=== PATIENT | male | born 1955 | race Caucasian/White ===

== ENCOUNTER 2019-12-29 09:48 | Outpatient (REF) | payer OTHER, SELFPAY ==
[2019-12-29 10:11] LABS: MANUAL DIFF FLAG NO
[2019-12-29 10:16] LABS: Basophils Percent Auto 0.3 % (0-2); Eosinophils Absolute Auto 0.3 X10*3/uL (0.0-0.4); Eosinophils Percent Auto 2.5 % (0-4); Hematocrit 45.3 % (42-52); Hemoglobin 15.5 g/dl (14.0-18.0); Imm Gran Abs Auto 0.03 X10*3/uL (0.00-0.03); Imm Gran Pct Auto 0.3 % (0.0-0.4); Lymphocytes Absolute Auto 2.6 X10*3/uL (1.2-4.9); Lymphocytes Percent Auto 23.1 % (20-40); Mean Corpuscular HGB Conc 34.2 g/dl (31.0-36.0); Mean Corpuscular Hemoglobin 31.6 pg (27.0-33.0); Mean Corpuscular Volume 92.3 fL (80-98); Mean Platelet Volume 10.9 fL (9.4-12.4); Monocytes Absolute Auto 0.6 X10*3/uL (0.1-1.2); Monocytes Percent Auto 5.1 % (2-11); Neutrophils Absolute Auto 7.9 X10*3/uL (2.0-8.3); Neutrophils Percent Auto 68.7 % (45-73); Platelet Count 216 X10*3/uL (160-400); Red Blood Count 4.91 X10*6/uL (4.60-5.80); Red Cell Distribution Width 12.6 % (11.0-16.0); White Blood Count 11.4 X10*3/uL (4.8-10.8)
[2019-12-29 10:18] LABS: Appearance Urine CLEAR; Color Urine YELLOW; Glucose Urine UA NEG (NEG); Leukocyte Esterase Urine NEG (NEG); Nitrite Urine NEG (NEG); Urine Blood NEG (NEG); Urine Ketones NEG (NEG); Urine Protein NEG (NEG-TRACE)
[2019-12-29 10:49] LABS: Alanine Aminotransferase 22 U/L (0-40); Albumin Level 4.2 g/dL (3.5-5.0); Alkaline Phosphatase 79 U/L (39-117); Anion Gap 12 (12-20); Aspartate Amino Transferase 15 U/L (5-37); Bilirubin Total 0.8 mg/dL (0.0-1.0); Blood Urea Nitrogen 11 mg/dL (9-16); C Reactive Protein 0.21 mg/dL (< or = 0.50); Calcium 8.9 mg/dL (8.4-10.2); Carbon Dioxide 29 mmol/L (22-29); Chloride 103 mmol/L (96-108); Estimated Glomerular Filt Rate > 60; Glucose Random 98 mg/dL (60-115); Potassium 4.3 mmol/l (3.3-5.1); Sodium 140 mmol/L (135-145)
[2019-12-29 11:09] LABS: Prostate Specific Antigen Scr 0.89 ng/mL (<0.05-4.0)
== END 2019-12-29 09:49 | disposition home or self-care (01) ==
LOC: HO.10HDL 09:48
PROVIDERS: Visit Provider Psychiatry & Neurology Neurology
DX: R30.0 Dysuria (principal); R35.1 Nocturia
CPT/HCPCS: 36415; 80053; 81003; 84153; 85025; 86140; 87086

== ENCOUNTER 2020-01-12 07:14 | Outpatient (REF) | payer OTHER, SELFPAY ==
[2020-01-12 11:19] LABS: Blood Urea Nitrogen 14 mg/dL (9-16); Estimated Glomerular Filt Rate > 60
== END 2020-01-12 07:15 | disposition home or self-care (01) ==
LOC: HO.WFDLDS 07:14
PROVIDERS: Visit Provider Urology
DX: N40.1 Benign prostatic hyperplasia with lower urinary tract symptoms (principal)
CPT/HCPCS: 82565; 84153; 84520

== ENCOUNTER 2020-01-30 06:50 | Outpatient (REF) | payer OTHER, SELFPAY ==
[2020-01-30 08:35] LABS: Prostate Specific Antigen 1.62 ng/mL (<0.05-4.0)
== END 2020-01-30 06:51 | disposition home or self-care (01) ==
LOC: HO.LAB 06:50
PROVIDERS: PCP Internal Medicine; Visit Provider Internal Medicine
DX: Q89.9 Congenital malformation, unspecified (principal); Z87.448 Personal history of other diseases of urinary system; Z12.5 Encounter for screening for malignant neoplasm of prostate
CPT/HCPCS: 84153

== ENCOUNTER 2020-07-22 06:17 | Outpatient (REF) | payer OTHER, SELFPAY ==
[2020-07-22 08:27] LABS: Cholesterol 213 mg/dL; HDL Cholesterol 50 mg/dL; LDL Cholesterol Calculated 119 mg/dl; Triglycerides 223 mg/dL
[2020-07-22 08:59] LABS: Prostate Specific Antigen 0.74 ng/mL (<0.05-4.0)
== END 2020-07-22 06:18 | disposition home or self-care (01) ==
LOC: HO.LAB 06:17
PROVIDERS: PCP Internal Medicine; Visit Provider Internal Medicine
DX: E78.00 Pure hypercholesterolemia, unspecified (principal); R97.20 Elevated prostate specific antigen [PSA]
CPT/HCPCS: 36415; 80061; 84153

== ENCOUNTER 2021-02-03 06:07 | Outpatient (REF) | payer OTHER, SELFPAY ==
[2021-02-03 06:24] LABS: MANUAL DIFF FLAG NO
[2021-02-03 06:55] LABS: Basophils Percent Auto 0.6 % (0-2); Eosinophils Absolute Auto 0.3 X10*3/uL (0.0-0.4); Eosinophils Percent Auto 3.5 % (0-4); Hematocrit 46.3 % (42.0-52.0); Hemoglobin 15.6 g/dl (14.0-18.0); Imm Gran Abs Auto 0.02 X10*3/uL (0.00-0.03); Imm Gran Pct Auto 0.3 % (0.0-0.4); Lymphocytes Absolute Auto 2.6 X10*3/uL (1.2-4.9); Lymphocytes Percent Auto 36.2 % (20-40); Mean Corpuscular HGB Conc 33.7 g/dl (31.0-36.0); Mean Corpuscular Hemoglobin 30.8 pg (27.0-33.0); Mean Corpuscular Volume 91.5 fL (80.0-98.0); Mean Platelet Volume 10.7 fL (9.4-12.4); Monocytes Absolute Auto 0.4 X10*3/uL (0.1-1.2); Monocytes Percent Auto 6.2 % (2-11); Neutrophils Absolute Auto 3.8 x10*3/uL (2.0-8.3); Neutrophils Percent Auto 53.2 % (45-73); Platelet Count 222 X10*3/uL (160-400); Red Blood Count 5.06 X10*6/uL (4.60-5.80); Red Cell Distribution Width 12.7 % (11.0-16.0); White Blood Count 7.2 X10*3/uL (4.8-10.8)
[2021-02-03 07:17] LABS: Anion Gap 12 (12-20); Blood Urea Nitrogen 13 mg/dL (9-16); C Reactive Protein 0.46 mg/dL (< or = 0.50); Calcium 9.7 mg/dL (8.4-10.2); Carbon Dioxide 29 mmol/L (22-29); Chloride 105 mmol/L (96-108); Estimated Glomerular Filt Rate > 60; Glucose Random 110 mg/dL (60-115); Potassium 4.6 mmol/L (3.3-5.1); Sodium 141 mmol/L (135-145)
[2021-02-03 07:42] LABS: Prostate Specific Antigen Scr 0.65 ng/mL (<0.05-4.0)
[2021-02-03 08:02] LABS: Appearance Urine CLEAR; Color Urine YELLOW; Glucose Urine UA NEG (NEG); Leukocyte Esterase Urine NEG (NEG); Nitrite Urine NEG (NEG); PH 5.5 (5.0-8.0); Specific Gravity - Urine >= 1.030 (1.005-1.025); Urine Blood NEG (NEG); Urine Ketones NEG (NEG); Urine Protein TRACE MG/DL (NEG-TRACE)
== END 2021-02-03 06:08 | disposition home or self-care (01) ==
LOC: HO.LAB 06:07
PROVIDERS: PCP Internal Medicine; Visit Provider Internal Medicine
DX: Z12.5 Encounter for screening for malignant neoplasm of prostate (principal); R97.20 Elevated prostate specific antigen [PSA]; N20.0 Calculus of kidney
CPT/HCPCS: 36415; 80048; 81003; 84153; 85025; 86140

== ENCOUNTER 2021-08-29 09:03 | Outpatient (REF) | payer OTHER, SELFPAY ==
[2021-08-29 11:03] LABS: MANUAL DIFF FLAG NO
[2021-08-29 11:05] LABS: Basophils Percent Auto 0.2 % (0-2); Eosinophils Absolute Auto 0.1 X10*3/uL (0.0-0.4); Eosinophils Percent Auto 1.1 % (0-4); Hematocrit 40.9 % (42.0-52.0); Hemoglobin 14.1 g/dl (14.0-18.0); Imm Gran Abs Auto 0.04 X10*3/uL (0.00-0.03); Imm Gran Pct Auto 0.3 % (0.0-0.4); Lymphocytes Absolute Auto 2.6 X10*3/uL (1.2-4.9); Mean Corpuscular HGB Conc 34.5 g/dl (31.0-36.0); Mean Corpuscular Hemoglobin 31.3 pg (27.0-33.0); Mean Corpuscular Volume 90.7 fL (80.0-98.0); Mean Platelet Volume 11.1 fL (9.4-12.4); Monocytes Absolute Auto 1.1 X10*3/uL (0.1-1.2); Monocytes Percent Auto 8.9 % (2-11); Neutrophils Absolute Auto 8.8 x10*3/uL (2.0-8.3); Neutrophils Percent Auto 69.5 % (45-73); Platelet Count 216 X10*3/uL (160-400); Red Blood Count 4.51 X10*6/uL (4.60-5.80); Red Cell Distribution Width 12.6 % (11.0-16.0); White Blood Count 12.7 X10*3/uL (4.8-10.8)
[2021-08-29 11:20] LABS: Appearance Urine CLEAR; Color Urine YELLOW; Glucose Urine UA NEG (NEG); Leukocyte Esterase Urine 1+ (NEG); Nitrite Urine NEG (NEG); Specific Gravity - Urine 1.015 (1.005-1.025); UACC Culture Trigger YES; Urine Blood 3+ (NEG); Urine Ketones 5 MG/DL (NEG); Urine Protein NEG (NEG-TRACE)
[2021-08-29 11:30] LABS: Anion Gap 11 (12-20); Blood Urea Nitrogen 17 mg/dL (9-16); Calcium 9.4 mg/dL (8.4-10.2); Carbon Dioxide 27 mmol/L (22-29); Chloride 105 mmol/L (96-108); Estimated Glomerular Filt Rate 43; Glucose Random 88 mg/dL (60-115); Potassium 4.1 mmol/L (3.3-5.1); Sodium 139 mmol/L (135-145)
[2021-08-29 12:07] LABS: UACC CULT YES
[2021-08-29 12:08] LABS: Calcium Oxalate Crystals Urine 1+ /LPF
== END 2021-08-29 09:04 | disposition home or self-care (01) ==
LOC: HO.WFDLDS 09:03
PROVIDERS: Visit Provider Internal Medicine
DX: M54.9 Dorsalgia, unspecified (principal); Z87.442 Personal history of urinary calculi
CPT/HCPCS: 36415; 80048; 81001; 85025; 87086

== ENCOUNTER 2021-09-04 14:59 | Inpatient (IN) | payer OTHER, SELFPAY ==
--- NOTE | ~2021-09-04 | CT_ITS ---
EXAMINATION: CT ABDOMEN AND PELVIS WITHOUT CONTRAST CLINICAL INFORMATION: Right flank pain COMPARISON: None TECHNIQUE: Multidetector volumetric imaging was performed from the superior aspect of the liver through the pubic symphysis. Sagittal and coronal reformatted images were obtained on the technologist's workstation. This CT examination was performed using dose optimization techniques as appropriate, variously including the following: *Automated exposure control *Adjustment of mA and/or kV according to patient size (this includes techniques or standardized protocols for targeted exams where dose is matched to indication/reason for exam; i.e. extremities or head) *Use of iterative reconstruction technique DLP: 491 mGy-cm FINDINGS: LUNG BASES: The visualized lung bases are unremarkable. LIVER, GALLBLADDER, AND BILIARY TREE: Scattered multiple hepatic cysts. No suspicious liver lesions. No intrahepatic bile duct dilatation. The gallbladder is unremarkable with no evidence of radiopaque gallstones, gallbladder wall thickening, or obvious pericholecystic inflammatory changes. PANCREAS: Unremarkable. SPLEEN: Unremarkable. ADRENAL GLANDS: Unremarkable. KIDNEYS AND URETERS: Right kidney: There is marked hydronephrosis right kidney with distention renal pelvis calyces and the right ureter to the distal lower pelvis. There is a stone in the lower right ureter just proximal to the ureterovesical junction measuring 8 x 4 mm in size. No additional stone in the ureter. There is a 3 mm stone and there are 2 adjacent 1 mm stones in the lower pole of the right kidney. Right kidney is of normal size and contour. Left kidney: Hypodensities within the left renal pelvis likely represent parapelvic cysts rather than hydronephrosis. No hydroureter. There is an exophytic cortical cyst at the anterior midpole left kidney measuring 1.6 cm. At the lower pole is an exophytic 1.3 cm cyst. No follow-up imaging is recommended for simple renal cyst.. There are 2 nonobstructive calculi in the lower pole left kidney measuring 4 mm and 3 mm. There is no ureteral stone. BLADDER: Unremarkable. GASTROINTESTINAL TRACT: There are scattered diverticula of the colon. There is no diverticulitis. There is no bowel wall thickening /edema. There is no bowel obstruction. There is a moderate volume of stool in the colon. The appendix is normal . The small bowel loops are unremarkable. The stomach is normal. There is no hiatal hernia. ABDOMINAL WALL: Small fat-containing umbilical hernia. Bilateral fat-containing inguinal hernia. These each measure about 3.5 cm transverse. There is knuckle of nonobstructive small bowel partially extending into the right inguinal hernia. LYMPH NODES: Normal. VASCULAR: Unremarkable. PELVIC VISCERA: Prostate measures 5.3 cm transverse. OSSEOUS STRUCTURES: Unremarkable. CT/CT abdomen pelvis wo con IMPRESSION: Hydronephrosis of right kidney due to an obstructing distal right ureteral stone measuring 8 x 4 mm. There are bilateral nonobstructive renal calculi. Fleischner guidelines were followed.
--- NOTE | ~2021-09-04 | FL_ITS ---
EXAMINATION: XR FLUOROSCOPY WITH IMAGES CLINICAL INFORMATION: Right ureteral stone COMPARISON: CT abdomen and pelvis from 09/04/2021 TECHNIQUE: Fluoroscopy performed by Dr. Swartz. Fluoroscopy time: 29.4 sec Dose: 5.95 mGy Images: 3 fluoroscopy images are saved. FL/FL guidance in OR FINDINGS AND IMPRESSION: Please refer to the urology procedure report. Retrograde right urography performed. Filling defect caused by a stone is detected in the distal ureter near level of ureterovesical junction. Persistent right hydroureter. A right ureteral stent was deployed.
[2021-09-04 15:19] VITALS: BP 114/77; PULSE 90; RESP 18; TEMP 36.9; O2SAT 98; BMI 22.8
[2021-09-04 15:33] LABS: Basophils Percent Auto 0.3 % (0-2); Eosinophils Absolute Auto 0.2 X10*3/uL (0.0-0.4); Eosinophils Percent Auto 1.6 % (0-4); Hematocrit 37.1 % (42.0-52.0); Hemoglobin 12.7 g/dl (14.0-18.0); Imm Gran Abs Auto 0.03 X10*3/uL (0.00-0.03); Imm Gran Pct Auto 0.3 % (0.0-0.4); Lymphocytes Absolute Auto 2.2 X10*3/uL (1.2-4.9); Lymphocytes Percent Auto 21.7 % (20-40); MANUAL DIFF FLAG NO; Mean Corpuscular HGB Conc 34.2 g/dl (31.0-36.0); Mean Corpuscular Hemoglobin 30.9 pg (27.0-33.0); Mean Corpuscular Volume 90.3 fL (80.0-98.0); Mean Platelet Volume 9.3 fL (9.4-12.4); Monocytes Absolute Auto 0.7 X10*3/uL (0.1-1.2); Neutrophils Absolute Auto 7.1 x10*3/uL (2.0-8.3); Neutrophils Percent Auto 69.1 % (45-73); Platelet Count 293 X10*3/uL (160-400); Red Blood Count 4.11 X10*6/uL (4.60-5.80); White Blood Count 10.3 X10*3/uL (4.8-10.8)
[2021-09-04 15:53] LABS: Anion Gap 13 (12-20); Blood Urea Nitrogen 15 mg/dL (9-16); Calcium 8.5 mg/dL (8.4-10.2); Carbon Dioxide 26 mmol/L (22-29); Chloride 105 mmol/L (96-108); Creatinine Clr Calc Pharmacy 57.5; Estimated Glomerular Filt Rate 49; Glucose Random 98 mg/dL (60-115); Potassium 4.6 mmol/L (3.3-5.1); Sodium 139 mmol/L (135-145)
--- NOTE | 2021-09-04 16:14 | ED_ITS ---
HPI - Male Genitourinary General Chief complaint: Urogenital-Male Stated complaint: sharp pain R side of back Time Seen by Provider: 09/04/21 16:08 Source: patient Mode of arrival: ambulatory Limitations: no limitations History of Present Illness HPI Narrative: 66-year-old male with a past medical history of BPH and GERD who is otherwise healthy presents for right-sided back pain that started 8 days ago and is wo rsening today. Patient has been nauseous and anorexic. No vomiting no fevers. The pain alternates between a sharp and a dull pain. Patient was found to have stones in his kidneys in 2019, but no stones in ureter. On August 27, patient had a sharp pain in his right side of his back, he saw his PCP on telehealth who gave him Flexeril and set up an ultrasound for his kidney that was not scheduled until September. PCP did prescribe Cipro flux is in, 250 mg b.i.d. for 7 days, patient is on day 7. On August 29 patient had +1 leukocyte esterase in urine with 15-29 white blood cells, 15-29 red blood cells and 3+ blood on August 29 patient had a leukocytosis of 12.7, creatinine 1.61 Patient states the pain in his right back is a 5/10 and is radiating to his abdomen. Patient states that he feels his urine flow is slower and he is emptying his bladder completely. He has not seen any blood in his urine. No dysuria. Related Data Allergies Allergy/AdvReac Type Severity Reaction Status Date / Time Penicillins Allergy Mild HIVES Unverified 11/16/19 14:41 Review of Systems Constitutional: Constitutional: Reports anorexia, Denies body ache(s), Denies chills, Reports fatigue, Denies fever(s), Denies headache(s), Denies malaise and Denies weakness Eyes: Eyes: Denies diplopia ENT: Denies vertigo, Denies dizziness, Denies otalgia, Denies headache(s), Denies mouth pain, Denies post nasal drip, Denies sinus pain, Denies sinus pressure, Denies sore throat and Denies throat swelling Cardiovascular: Cardiovascular: Denies chest pain, Denies syncope, Denies leg edema, Denies lightheadedness, Denies Loss of Consciousness, Denies palpitations and Denies dyspnea Respiratory: Respiratory: Denies chest congestion, Denies cough and Denies dys pnea Gastrointestinal: Gastrointestinal: Reports abdominal pain, Denies hematochezia, Denies constipation, Denies diarrhea, Reports nausea and Denies vomiting Genitourinary: Genitourinary: Reports difficulty urinating, Denies dysuria, Reports flank pain, Denies testicular pain and Denies urinary urgency Musculoskeletal: Musculoskeletal: Reports no additional musculoskeletal complaints Neurologic: Denies confusion, Denies vertigo, Denies dizziness, Denies syncope, Denies headache(s) and Denies weakness Psychiatric: Psychiatric: Denies anxiety, Denies confusion and Denies depression Endocrine: Endocrine: Reports fatigue and Denies palpitations Allergic/Immunologic: Allergic/Immunologic: Denies throat swelling PMFSH Social History Social History Advance Directives: No Advance Directives Information Provided: No Physical Exam Vital Signs: Vital Signs: Last Vital Signs Temp 97.6 F 09/04/21 17:54 Pulse 69 09/04/21 17:54 Resp 18 09/04/21 17:54 BP 133/75 09/04/21 17:54 Pulse Ox 100 09/04/21 17:54 O2 Del Method 09/04/21 17:54 BMI result Body Mass Index 22.8 Const: General: No confusion Nutritional Appearance: well nourished Orientation/consciousness: No confusion Limitations: no limitations Eyes: Conjunctivae: conjunctivae normal Pupils: Equal, round and reactive pupils present EOM: EOMs intact bilaterally Neck: Neck: Yes full ROM, Yes no lymphadenopathy and Yes supple Resp: Effort & Inspection: normal respiratory effort and able to speak in complete sentences Auscultation: clear to auscultation bilaterally, no crackles, no rales, no rhonchi and no wheezes Cardio: Rate: regular rate Rhythm: regular rhythm Heart sounds: S1 normal heart sound present and S2 normal heart sound present GI: Inspection: Yes normal to inspection Palpation (GI): Soft to palpation, nontender, no guarding and not rigid Percussion: Yes normal to percussion Auscultation: normal bowel sounds : General: No no CVA tenderness Back/Spine/Pelvis: Back: No no CVA tenderness Skin: General skin exam: no rashes or lesions noted Neuro: General: No confusion Cranial nerves: Yes Equal, round and reactive pupils present Extrem: General: Yes normal to inspection and Yes full ROM Psych: Appearance: grossly normal Affect: normal affect Attitude: cooperative Thought process: Normal thought process present Course Course Course Narrative: 52-year-old male with 8 days of right-sided back pain, has stable vitals, is afebrile, no CVA tenderness, benign abdominal exam. Today patient has no leukocytosis, creatinine is 1.44 compared to creatinine 1.616 days ago. Urine is clean. CT shows 8 mm obstructing stone in right ureter with marked hydronephrosis of right kidney Artesia Wells text with Dr. 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 LIVER, GALLBLADDER, AND BILIARY TREE: Scattered multiple hepatic cysts. No suspicious liver lesions. No intrahepatic bile duct dilatation. The gallbladder is unremarkable with no evidence of radiopaque gallstones, gallbladder wall thickening, or obvious pericholecystic inflammatory changes.? PANCREAS: Unremarkable.? SPLEEN: Unremarkable.? ADRENAL GLANDS: Unremarkable.? KIDNEYS AND URETERS: Right kidney: There is marked hydronephrosis right kidney with distention renal pelvis calyces and the right ureter to the distal lower pelvis. There is a stone in the lower right ureter just proximal to the ureterovesical junction measuring 8 x 4 mm in size. No additional stone in the ureter. There is a 3 mm stone and there are 2 adjacent 1 mm stones in the lower pole of the right kidney. Right kidney is of normal size and contour. Left kidney: Hypodensities within the left renal pelvis likely represent parapelvic cysts rather than hydronephrosis. No hydroureter. There is an exophytic cortical cyst at the anterior midpole left kidney measuring 1.6 cm. At the lower pole is an exophytic 1.3 cm cyst. No follow-up imaging is recommended for simple renal cyst.. There are 2 nonobstructive calculi in the lower pole left kidney measuring 4 mm and 3 mm. There is no ureteral stone. BLADDER: Unremarkable.? GASTROINTESTINAL TRACT: There are scattered diverticula of the colon. There is no diverticulitis. There is no bowel wall thickening /edema. There is no bowel obstruction. There is a moderate volume of stool in the colon. The appendix is normal . The small bowel loops are unremarkable. The stomach is normal. There is no hiatal hernia.? ABDOMINAL WALL: Small fat-containing umbilical hernia. Bilateral fat-containing inguinal hernia. These each measure about 3.5 cm transverse. There is knuckle of nonobstructive small bowel partially extending into the right inguinal hernia.? LYMPH NODES: Normal. VASCULAR: Unremarkable. PELVIC VISCERA: Prostate measures 5.3 cm transverse.? OSSEOUS STRUCTURES: Unremarkable.? CT/CT abdomen pelvis wo con IMPRESSION: Hydronephrosis of right kidney due to an obstructing distal right ureteral stone measuring 8 x 4 mm. There are bilateral nonobstructive renal calculi.? ? MDM - Male Genitourinary Lab Data Result diagrams: 09/04/21 15:27 09/04/21 15:27 Labs: Lab Results 09/04/21 09/04/21 09/04/21 Range/Units 15:27 15:27 16:33 WBC 10.3 (4.8-10.8) X10*3/uL RBC 4.11 L (4.60-5.80) X10*6/uL Hgb 12.7 L (14.0-18.0) g/dl Hct 37.1 L (42.0-52.0) % MCV 90.3 (80.0-98.0) fL MCH 30.9 (27.0-33.0) pg MCHC 34.2 (31.0-36.0) g/dl RDW 12.0 (11.0-16.0) % Plt Count 293 D (160-400) X10*3/uL MPV 9.3 L (9.4-12.4) fL Immature Gran % (Auto) 0.3 (0.0-0.4) % Neut % (Auto) 69.1 (45-73) % Lymph % (Auto) 21.7 (20-40) % Ashley % (Auto) 7.0 (2-11) % Eos % (Auto) 1.6 (0-4) % Baso % (Auto) 0.3 (0-2) % Lymph # (Auto) 2.2 (1.2-4.9) X10*3/uL Ashley # (Auto) 0.7 (0.1-1.2) X10*3/uL Eos # (Auto) 0.2 (0.0-0.4) X10*3/uL Baso # (Auto) 0.0 (0.0-0.2) X10*3/uL Abs Immat Gran (auto) 0.03 (0.00-0.03) X10*3/uL Absolute Neuts (auto) 7.1 (2.0-8.3) x10*3/uL Absolute Nucleated RBC 0.000 (0.0-0.012) X10*3/uL Nucleated RBC % (auto) 0.0 (0.0-0.2) /100WBC Sodium 139 (135-145) mmol/L Potassium 4.6 (3.3-5.1) mmol/L Chloride 105 (96-108) mmol/L Carbon Dioxide 26 (22-29) mmol/L Anion Gap 13 (12-20) BUN 15 (9-16) mg/dL Creatinine 1.44 H (0.5-1.4) mg/dL Estim Creat Clear Calc 57.5 Estimated GFR 49 Random Glucose 98 (60-115) mg/dL Calcium 8.5 D (8.4-10.2) mg/dL Urine Color YELLOW Urine Appearance CLEAR Urine pH 6.0 (5.0-8.0) Ur Specific [place] 1.025 (1.005-1.025) Urine Protein NEG (NEG-TRACE) MG/DL Urine Glucose (UA) NEG (NEG) MG/DL Urine Ketones NEG (NEG) MG/DL Urine Blood NEG (NEG) Urine Nitrite NEG (NEG) Ur Leukocyte Esterase NEG (NEG) Urine RBC 0-2 (0) /HPF Urine WBC 0-2 (0-4) /HPF Ur Squamous Epith Cells NONE /LPF Urine Bacteria NONE /LPF COVID-19 ([facility]) (Negative) COVID-19 Clin Com 09/04/21 Range/Units 17:57 WBC (4.8-10.8) X10*3/uL RBC (4.60-5.80) X10*6/uL Hgb (14.0-18.0) g/dl Hct (42.0-52.0) % MCV (80.0-98.0) fL MCH (27.0-33.0) pg MCHC (31.0-36.0) g/dl RDW (11.0-16.0) % Plt Count (160-400) X10*3/uL MPV (9.4-12.4) fL Immature Gran % (Auto) (0.0-0.4) % Neut % (Auto) (45-73) % Lymph % (Auto) (20-40) % Ashley % (Auto) (2-11) % Eos % (Auto) (0-4) % Baso % (Auto) (0-2) % Lymph # (Auto) (1.2-4.9) X10*3/uL Ashley # (Auto) (0.1-1.2) X10*3/uL Eos # (Auto) (0.0-0.4) X10*3/uL Baso # (Auto) (0.0-0.2) X10*3/uL Abs Immat Gran (auto) (0.00-0.03) X10*3/uL Absolute Neuts (auto) (2.0-8.3) x10*3/uL Absolute Nucleated RBC (0.0-0.012) X10*3/uL Nucleated RBC % (auto) (0.0-0.2) /100WBC Sodium (135-145) mmol/L Potassium (3.3-5.1) mmol/L Chloride (96-108) mmol/L Carbon Dioxide (22-29) mmol/L Anion Gap (12-20) BUN (9-16) mg/dL Creatinine (0.5-1.4) mg/dL Estim Creat Clear Calc Estimated GFR Random Glucose (60-115) mg/dL Calcium (8.4-10.2) mg/dL Urine Color Urine Appearance Urine pH (5.0-8.0) Ur Specific [place] (1.005-1.025) Urine Protein (NEG-TRACE) MG/DL Urine Glucose (UA) (NEG) MG/DL Urine Ketones (NEG) MG/DL Urine Blood (NEG) Urine Nitrite (NEG) Ur Leukocyte Esterase (NEG) Urine RBC (0) /HPF Urine WBC (0-4) /HPF Ur Squamous Epith Cells /LPF Urine Bacteria /LPF COVID-19 ([facility]) Negative (Negative) COVID-19 Clin Com See Note Discharge Plan Discharge Clinical Impression: Hydronephrosis with obstructing calculus Patient Disposition: Admitted As Inpatient
[2021-09-04 16:40] LABS: Appearance Urine CLEAR; Color Urine YELLOW; Glucose Urine UA NEG (NEG); Leukocyte Esterase Urine NEG (NEG); Nitrite Urine NEG (NEG); Specific Gravity - Urine 1.025 (1.005-1.025); Urine Blood NEG (NEG); Urine Ketones NEG (NEG); Urine Protein NEG (NEG-TRACE)
[2021-09-04 16:48] LABS: RBC Urine 0-2 /HPF (0); WBC Urine 0-2 /HPF (0-4)
[2021-09-04 17:54] VITALS: BP 133/75; PULSE 69; RESP 18; TEMP 36.4; O2SAT 100
[2021-09-04] MEDS: 0.9 % Sodium Chloride 1,000 ML 999 ML IV (18:22)
[2021-09-04] MEDS: Ketorolac Tromethamine 15 MG/ML VIAL IVPUSH (18:23)
[2021-09-04 18:28] LABS: COVID-19 Test Negative (Negative)
--- NOTE | 2021-09-04 19:12 | PM.IMHP ---
History of Present Illness Date of Service: 09/04/21 Chief Complaint: right flank pain 66-year-old male with a past medical history BPH presented the hospital today with a chief complaint of right sided back pain. Patient reports that he has been having right-sided back pain for the past 8 days; denies any urinary frequency urgency, fever chills cough, GI symptoms. Mentioned that he has seen his PCP who gave him ciprofloxacin for possible UTI; which he finished 5 day course. at the symptoms were not improving decided to come to the ER for further evaluation. Denies any chest pain palpitations. Denies any urinary frequency urgency or dysuria currently. Review of all other systems is negative except mentioned above ER course: Per ER team patient had abnormal labs consistent with TIARRA; urinalysis was clean. CT scan showed 8 mm right-sided distal ureteral stone with hydronephrosis. Urology was notified- suggested admission to the medicine service. [facility] Pertinent family history: father: CAD Social History Advance Directives: No Advance Directives Information Provided: No Meds Allergies Allergy/AdvReac Type Severity Reaction Status Date / Time Penicillins Allergy Mild HIVES Unverified 11/16/19 14:41 Active Medications: Current Medications Acetaminophen (Acetaminophen 325 Mg Tablet) 650 mg PO Q6H PRN PRN Reason: Pain, Mild (Pain Scale 1-3) Enoxaparin Sodium (Enoxaparin Sodium 40 Mg/0.4 Ml Syringe) 40 mg SUBCUT Q24H [facility] Hydromorphone HCl (Hydromorphone Hcl 1 Mg/Ml Syringe) 0.5 mg IVPUSH Q4H PRN; Protocol PRN Reason: Pain, Severe (Pain Scale 7-10) Melatonin (Melatonin 3 Mg Tablet) 6 mg PO BEDTIME PRN PRN Reason: Insomnia Pharmacy Consult (Consult Rx Perform Med Rec) 1 each MISCELLANE ONCE PRN PRN Reason: Consult order Senna (Sennosides 8.6 Mg Tablet) 17.2 mg PO BEDTIME PRN PRN Reason: Constipation Sodium Chloride (0.9 % Sodium Chloride Flush 3 Ml Syringe) 3 ml IVFLUSH QSHIFT [facility] Home Medications Medication Instructions Recorded Confirmed Last Taken Type cholecalciferol (vitamin D3) 25 25 mcg PO DAILY 09/04/21 09/04/21 Unknown History mcg (1,000 unit) tablet (Vitamin D3) omeprazole 20 mg tablet,delayed 20 mg PO DAILY@0630 09/04/21 09/04/21 09/04/21 History release vitamin B complex 1 tab PO DAILY 09/04/21 09/04/21 Unknown History Physical Exam Vital Signs and Narrative: Vital Signs: Last Vital Signs Temp 97.6 F 09/04/21 17:54 Pulse 69 09/04/21 17:54 Resp 18 09/04/21 17:54 BP 133/75 09/04/21 17:54 Pulse Ox 100 09/04/21 17:54 O2 Del Method 09/04/21 17:54 BMI result Body Mass Index 22.8 Results Labs CBC and Chem 7: 09/04/21 15:27 09/04/21 15:27 Labs: Laboratory Results - last 24 hr 09/04/21 09/04/21 09/04/21 15:27 15:27 16:33 MCV 90.3 MCH 30.9 MCHC 34.2 RDW 12.0 Plt Count 293 D MPV 9.3 L Immature Gran % (Auto) 0.3 Neut % (Auto) 69.1 Lymph % (Auto) 21.7 [place] % (Auto) 7.0 Eos % (Auto) 1.6 Baso % (Auto) 0.3 Lymph # (Auto) 2.2 [place] # (Auto) 0.7 Eos # (Auto) 0.2 Baso # (Auto) 0.0 Abs Immat Gran (auto) 0.03 Absolute Neuts (auto) 7.1 Absolute Nucleated RBC 0.000 Nucleated RBC % (auto) 0.0 Anion Gap 13 Estim Creat Clear Calc 57.5 Estimated GFR 49 Random Glucose 98 Calcium 8.5 D Urine Color YELLOW Urine Appearance CLEAR Urine pH 6.0 Ur Specific [place] 1.025 Urine Protein NEG Urine Glucose (UA) NEG Urine Ketones NEG Urine Blood NEG Urine Nitrite NEG Ur Leukocyte Esterase NEG Urine RBC 0-2 Urine WBC 0-2 Ur Squamous Epith Cells NONE Urine Bacteria NONE COVID-19 ([facility]) COVID-19 Clin Com 09/04/21 17:57 MCV MCH MCHC RDW Plt Count MPV Immature Gran % (Auto) Neut % (Auto) Lymph % (Auto) [place] % (Auto) Eos % (Auto) Baso % (Auto) Lymph # (Auto) [place] # (Auto) Eos # (Auto) Baso # (Auto) Abs Immat Gran (auto) Absolute Neuts (auto) Absolute Nucleated RBC Nucleated RBC % (auto) Anion Gap Estim Creat Clear Calc Estimated GFR Random Glucose Calcium Urine Color Urine Appearance Urine pH Ur Specific [place] Urine Protein Urine Glucose (UA) Urine Ketones Urine Blood Urine Nitrite Ur Leukocyte Esterase Urine RBC Urine WBC Ur Squamous Epith Cells Urine Bacteria COVID-19 ([facility]) Negative COVID-19 Clin Com See Note Imaging Radiologist's Impressions: Impressions Abdomen/Pelvis CT 09/04/21 16:44 IMPRESSION: Hydronephrosis of right kidney due to an obstructing distal right ureteral stone measuring 8 x 4 mm. There are bilateral nonobstructive renal calculi. Fleischner guidelines were followed. Assessment and Plan (1) Hydronephrosis with obstructing calculus: Status: Acute Plan 66-year-old male with a past medical history BPH presented the hospital today with a chief complaint of right sided back pain. Noted to have right-sided ureteral calculus with hydronephrosis. Admitted for further management. Right-sided ureteral calculus/ hydronephrosis: Pain control Patient recently finished course of antibiotics. Urinalysis currently appears clean urology aware of the patient Pain control Flomax TIARRA: Question postrenal given hydronephrosis. Urology follow-up. DVT prophylaxis: Lovenox Code status: Full code Quality Stroke Does the patient have a stroke diagnosis?: No VTE Prior VTE?: No VTE Risk Level:: Medical - moderate - high VTE Device Contraindication: Treatment Not Indicated VTE Drug Contraindication: N/A - Med Ordered
[2021-09-04] MEDS: Enoxaparin Sodium 40 MG/0.4 ML SYRINGE SUBCUT (19:45)
[2021-09-04] MEDS: cefTRIAXone sodium 1 GM in 0.9 % Sodium Chloride 50 ML IV (20:10)
--- NOTE | 2021-09-04 20:20 | PHA.MEDREC ---
Pharmacy Consult ? Medication Reconciliation Pharmacy has completed the medication reconciliation.
[2021-09-05] VITALS (10 sets, daily range): BP systolic 102–151; BP diastolic 48–77; PULSE 72–89; RESP 14–18; TEMP 36.2–36.9; O2SAT 96–100
[2021-09-05] MEDS: Omeprazole 20 MG CAPSULE.DR PO (05:48)
[2021-09-05] MEDS: HYDROmorphone HCl 0.5 MG/0.5 ML SYRINGE IVPUSH ×2 (05:48→13:56)
[2021-09-05 06:24] LABS: MANUAL DIFF FLAG NO
[2021-09-05 06:35] LABS: Basophils Percent Auto 0.5 % (0-2); Eosinophils Absolute Auto 0.2 X10*3/uL (0.0-0.4); Hematocrit 37.1 % (42.0-52.0); Hemoglobin 12.6 g/dl (14.0-18.0); Imm Gran Abs Auto 0.05 X10*3/uL (0.00-0.03); Imm Gran Pct Auto 0.6 % (0.0-0.4); Lymphocytes Absolute Auto 1.9 X10*3/uL (1.2-4.9); Lymphocytes Percent Auto 24.3 % (20-40); Mean Corpuscular Hemoglobin 30.7 pg (27.0-33.0); Mean Corpuscular Volume 90.3 fL (80.0-98.0); Mean Platelet Volume 9.8 fL (9.4-12.4); Monocytes Absolute Auto 0.5 X10*3/uL (0.1-1.2); Neutrophils Absolute Auto 5.3 x10*3/uL (2.0-8.3); Neutrophils Percent Auto 66.6 % (45-73); Platelet Count 301 X10*3/uL (160-400); Red Blood Count 4.11 X10*6/uL (4.60-5.80); Red Cell Distribution Width 11.9 % (11.0-16.0)
[2021-09-05 06:45] LABS: Anion Gap 12 (12-20); Blood Urea Nitrogen 16 mg/dL (9-16); Calcium 8.3 mg/dL (8.4-10.2); Carbon Dioxide 24 mmol/L (22-29); Chloride 106 mmol/L (96-108); Creatinine Clr Calc Pharmacy 67.3; Estimated Glomerular Filt Rate 59; Glucose Random 83 mg/dL (60-115); Potassium 4.6 mmol/L (3.3-5.1); Sodium 137 mmol/L (135-145)
--- NOTE | 2021-09-05 09:51 | PC.NURSE ---
Levofloxacin/D5W not loaded in overflow pyxis. This mortgage underwriter spoke with Matilda in pharmacy. Meds will be brought to the unit. Will administer meds when received from pharmacy.
[2021-09-05] MEDS: levoFLOXacin/D5W 500 MG/100 ML PIGGYBACK 100 MG IV (09:56)
--- NOTE | 2021-09-05 09:57 | MHC.CM.PN ---
met with pt in overflow and his pt is indepndent had no services prior to admission it is not expected that he will need servcies when dcd ..pt hopes to be dcd today
[2021-09-05] MEDS: 0.9 % Sodium Chloride Flush 3 ML SYRINGE IVFLUSH (09:59)
--- NOTE | 2021-09-05 11:17 | P.PNIM_ITS ---
Subjective Subjective Date of Service: 09/05/21 Interval History: follow-up on kidney stone interval history: Pain is better,renal function is normal Review of Systems no abdominal talib Physical Exam Vital Signs: Vital Signs: Last Vital Signs Temp 98.3 F 09/05/21 01:33 Pulse 72 09/05/21 08:46 Resp 16 09/05/21 08:46 BP 123/70 09/05/21 08:46 Pulse Ox 96 09/05/21 08:46 O2 Del Method 09/05/21 08:46 BMI result Body Mass Index 22.8 Objective Data Active Medications Acetaminophen (Acetaminophen 325 Mg Tablet) 650 mg PO Q6H PRN PRN Reason: Pain, Mild (Pain Scale 1-3) Enoxaparin Sodium (Enoxaparin Sodium 40 Mg/0.4 Ml Syringe) 40 mg SUBCUT Q24H [facility] Last Admin: 09/04/21 19:45 Dose: 40 mg Documented By: TALI Hydromorphone HCl (Hydromorphone Hcl 0.5 Mg/0.5 Ml Syringe) 0.5 mg IVPUSH Q4H PRN; Protocol PRN Reason: Pain, Severe (Pain Scale 7-10) Last Admin: 09/05/21 05:48 Dose: 0.5 mg Documented By: ZAY Ceftriaxone Sodium 1 gm/ (Sodium Chloride) 50 mls @ 100 mls/hr IV Q24H [facility] Last Admin: 09/04/21 20:10 Dose: 100 mls/hr Documented By: TALI Melatonin (Melatonin 3 Mg Tablet) 6 mg PO BEDTIME PRN PRN Reason: Insomnia Omeprazole (Omeprazole 20 Mg Capsule.) 20 mg PO DAILY@0630 [facility] Last Admin: 09/05/21 05:48 Dose: 20 mg Documented By: ZAY Pharmacy Consult (Consult Rx Perform Med Rec) 1 each MISCELLANE ONCE PRN PRN Reason: Consult order Senna (Sennosides 8.6 Mg Tablet) 17.2 mg PO BEDTIME PRN PRN Reason: Constipation Sodium Chloride (0.9 % Sodium Chloride Flush 3 Ml Syringe) 3 ml IVFLUSH QSHIFT [facility] Last Admin: 09/05/21 09:59 Dose: 3 ml Documented By: EDWNI Tamsulosin HCl (Tamsulosin Hcl 0.4 Mg Capsule) 0.4 mg PO DAILY [place] Last Admin: 09/05/21 10:10 Dose: Not Given Documented By: EDWIN Non-Admin Reason: NPO Labs CBC & Chem 7: 09/05/21 05:56 09/05/21 05:56 Labs: Laboratory Results - last 24 hr 09/04/21 09/04/21 09/04/21 15:27 15:27 16:33 MCV 90.3 MCH 30.9 MCHC 34.2 RDW 12.0 Plt Count 293 D MPV 9.3 L Immature Gran % (Auto) 0.3 Neut % (Auto) 69.1 Lymph % (Auto) 21.7 [place] % (Auto) 7.0 Eos % (Auto) 1.6 Baso % (Auto) 0.3 Lymph # (Auto) 2.2 [place] # (Auto) 0.7 Eos # (Auto) 0.2 Baso # (Auto) 0.0 Abs Immat Gran (auto) 0.03 Absolute Neuts (auto) 7.1 Absolute Nucleated RBC 0.000 Nucleated RBC % (auto) 0.0 Anion Gap 13 Estim Creat Clear Calc 57.5 Estimated GFR 49 Random Glucose 98 Calcium 8.5 D Urine Color YELLOW Urine Appearance CLEAR Urine pH 6.0 Ur Specific [place] 1.025 Urine Protein NEG Urine Glucose (UA) NEG Urine Ketones NEG Urine Blood NEG Urine Nitrite NEG Ur Leukocyte Esterase NEG Urine RBC 0-2 Urine WBC 0-2 Ur Squamous Epith Cells NONE Urine Bacteria NONE COVID-19 ([facility]) COVID-19 Clin Com 09/04/21 09/05/21 09/05/21 17:57 05:56 05:56 MCV 90.3 MCH 30.7 MCHC 34.0 RDW 11.9 Plt Count 301 MPV 9.8 Immature Gran % (Auto) 0.6 H Neut % (Auto) 66.6 Lymph % (Auto) 24.3 [place] % (Auto) 6.0 Eos % (Auto) 2.0 Baso % (Auto) 0.5 Lymph # (Auto) 1.9 [place] # (Auto) 0.5 Eos # (Auto) 0.2 Baso # (Auto) 0.0 Abs Immat Gran (auto) 0.05 H Absolute Neuts (auto) 5.3 Absolute Nucleated RBC 0.000 Nucleated RBC % (auto) 0.0 Anion Gap 12 Estim Creat Clear Calc 67.3 Estimated GFR 59 Random Glucose 83 Calcium 8.3 L Urine Color Urine Appearance Urine pH Ur Specific [place] Urine Protein Urine Glucose (UA) Urine Ketones Urine Blood Urine Nitrite Ur Leukocyte Esterase Urine RBC Urine WBC Ur Squamous Epith Cells Urine Bacteria COVID-19 ([facility]) Negative COVID-19 Clin Com See Note Assessment and Plan (1) Hydronephrosis with obstructing calculus: Status: Acute Plan 66-year-old male with a past medical history BPH presented the hospital today with a chief complaint of right sided back pain. Noted to have right-sided ureteral calculus with hydronephrosis. Admitted for further management. Right-sided ureteral calculus/ hydronephrosis: Pain control Patient recently finished course of antibiotics. Urinalysis currently appears clean uro to assess for intervention Pain control Flomax TIARRA: Question postrenal given hydronephrosis. resolved DVT prophylaxis: Lovenox Code status: Full code Inpatient need, kidney stone with hydronephrosis in TIARRA and likely need urological intervention. Quality Stroke Does the patient have a stroke diagnosis?: No VTE Prior VTE?: No VTE Risk Level:: Medical - moderate - high VTE Device Contraindication: Treatment Not Indicated VTE Drug Contraindication: N/A - Med Ordered
--- NOTE | 2021-09-05 14:45 | PC.NURSE ---
REPORT GIVEN TO RN IN SHORT STAY. 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 PT AND HIS AWARE OF PLAN.
--- NOTE | 2021-09-05 15:51 | PC.NURSE ---
REPORT GIVEN TO KIMMY SAAB. PT WILL BE TRANSFERRED TO [facility] AFTER PROCEDURE. PT AWARE OF PLAN, HIS IS AT HIS BEDSIDE. VSS.
--- NOTE | 2021-09-05 15:59 | P.CONAN_ITS ---
[facility] Active Problems Active Problems: All Active Problems (Updated 09/04/21 @ 17:53 by MARISEL Jackson) Hydronephrosis with obstructing calculus (Acute) Family History Family history of problems with anesthesia: No Surgical History History of Problems with Anesthesia: No Social History Social History Use of substances other than those prescribed or required for medical reasons: No Advance Directives: No Advance Directives Information Provided: No service: No Meds Allergies Allergy/AdvReac Type Severity Reaction Status Date / Time Penicillins Allergy Mild HIVES Unverified 11/16/19 14:41 Active Medications: Current Medications Acetaminophen (Acetaminophen 325 Mg Tablet) 650 mg PO Q6H PRN PRN Reason: Pain, Mild (Pain Scale 1-3) Enoxaparin Sodium (Enoxaparin Sodium 40 Mg/0.4 Ml Syringe) 40 mg SUBCUT Q24H [facility] Last Admin: 09/04/21 19:45 Dose: 40 mg Hydromorphone HCl (Hydromorphone Hcl 0.5 Mg/0.5 Ml Syringe) 0.5 mg IVPUSH Q4H PRN; Protocol PRN Reason: Pain, Severe (Pain Scale 7-10) Last Admin: 09/05/21 13:56 Dose: 0.5 mg Ceftriaxone Sodium 1 gm/ (Sodium Chloride) 50 mls @ 100 mls/hr IV Q24H [facility] Last Admin: 09/04/21 20:10 Dose: 100 mls/hr Melatonin (Melatonin 3 Mg Tablet) 6 mg PO BEDTIME PRN PRN Reason: Insomnia Omeprazole (Omeprazole 20 Mg Capsule.Dr) 20 mg PO DAILY@0630 [facility] Last Admin: 09/05/21 05:48 Dose: 20 mg Pharmacy Consult (Consult Rx Perform Med Rec) 1 each MISCELLANE ONCE PRN PRN Reason: Consult order Senna (Sennosides 8.6 Mg Tablet) 17.2 mg PO BEDTIME PRN PRN Reason: Constipation Sodium Chloride (0.9 % Sodium Chloride Flush 3 Ml Syringe) 3 ml IVFLUSH QSHIFT [facility] Last Admin: 09/05/21 09:59 Dose: 3 ml Tamsulosin HCl (Tamsulosin Hcl 0.4 Mg Capsule) 0.4 mg PO DAILY [facility] Last Admin: 09/05/21 10:10 Dose: Not Given Home Medications Medication Instructions Recorded Confirmed Last Taken Type cholecalciferol (vitamin D3) 25 25 mcg PO DAILY 09/04/21 09/04/21 Unknown History mcg (1,000 unit) tablet (Vitamin D3) omeprazole 20 mg tablet,delayed 20 mg PO DAILY@0630 09/04/21 09/04/21 09/04/21 History release vitamin B complex 1 tab PO DAILY 09/04/21 09/04/21 Unknown History Exam Exam Date and Time: September 05, 2021 1559 Height,Weight and Vital Signs: Height 6 ft 1 in Weight 78.471 kg Last Vital Signs Temp 98.3 F 09/05/21 01:33 Pulse 72 09/05/21 08:46 Resp 16 09/05/21 08:46 BP 123/70 09/05/21 08:46 Pulse Ox 96 09/05/21 08:46 O2 Del Method 09/05/21 08:46 Pertinent Lab Results Pertinent Lab Results: Laboratory Tests 09/04/21 09/04/21 09/04/21 15:27 15:27 16:33 WBC 10.3 RBC 4.11 L Hgb 12.7 L Hct 37.1 L MCV 90.3 MCH 30.9 MCHC 34.2 RDW 12.0 Plt Count 293 D MPV 9.3 L Immature Gran % (Auto) 0.3 Neut % (Auto) 69.1 Lymph % (Auto) 21.7 [place] % (Auto) 7.0 Eos % (Auto) 1.6 Baso % (Auto) 0.3 Lymph # (Auto) 2.2 [place] # (Auto) 0.7 Eos # (Auto) 0.2 Baso # (Auto) 0.0 Abs Immat Gran (auto) 0.03 Absolute Neuts (auto) 7.1 Absolute Nucleated RBC 0.000 Nucleated RBC % (auto) 0.0 Sodium 139 Potassium 4.6 Chloride 105 Carbon Dioxide 26 Anion Gap 13 BUN 15 Creatinine 1.44 H Estim Creat Clear Calc 57.5 Estimated GFR 49 Random Glucose 98 Calcium 8.5 D Urine Color YELLOW Urine Appearance CLEAR Urine pH 6.0 Ur Specific [place] 1.025 Urine Protein NEG Urine Glucose (UA) NEG Urine Ketones NEG Urine Blood NEG Urine Nitrite NEG Ur Leukocyte Esterase NEG Urine RBC 0-2 Urine WBC 0-2 Ur Squamous Epith Cells NONE Urine Bacteria NONE COVID-19 ([facility]) COVID-19 Clin Com 0709/05/21 09/05/21 17:57 05:56 05:56 WBC 8.0 RBC 4.11 L Hgb 12.6 L Hct 37.1 L MCV 90.3 MCH 30.7 MCHC 34.0 RDW 11.9 Plt Count 301 MPV 9.8 Immature Gran % (Auto) 0.6 H Neut % (Auto) 66.6 Lymph % (Auto) 24.3 [place] % (Auto) 6.0 Eos % (Auto) 2.0 Baso % (Auto) 0.5 Lymph # (Auto) 1.9 [place] # (Auto) 0.5 Eos # (Auto) 0.2 Baso # (Auto) 0.0 Abs Immat Gran (auto) 0.05 H Absolute Neuts (auto) 5.3 Absolute Nucleated RBC 0.000 Nucleated RBC % (auto) 0.0 Sodium 137 Potassium 4.6 Chloride 106 Carbon Dioxide 24 Anion Gap 12 BUN 16 Creatinine 1.23 Estim Creat Clear Calc 67.3 Estimated GFR 59 Random Glucose 83 Calcium 8.3 L Urine Color Urine Appearance Urine pH Ur Specific [place] Urine Protein Urine Glucose (UA) Urine Ketones Urine Blood Urine Nitrite Ur Leukocyte Esterase Urine RBC Urine WBC Ur Squamous Epith Cells Urine Bacteria COVID-19 ([facility]) Negative COVID-19 Clin Com See Note Airway Mallampati Class: II TM Dist: >3cm Neck ROM: Full Assessment and Plan Assessment Anesthesia Assessment: Anesthesia Plan Discussed and Chart Reviewed Final Anesthetic Review Family History of Problems with Anesthesia: No History of Problems with Anesthesia: No NPO: Yes ASA Class: II and Emergency Final Preanesthetic Review: No Changes in Pt Med Stat, Meds/Allgs Chart Reviewed, Consent Obtained/Reviewed and Anes Risks/Benef Reviewed Patient Risk: Intermediate Procedure Risk: Intermediate Anesthetic Plan Anesthetic Plan: GA Disposition: Standard PACU
--- NOTE | 2021-09-05 16:30 | PC.NURSE ---
PT PICKED UP AND TAKEN TO SURGERY.
--- NOTE | 2021-09-05 16:40 | PM.UROCN ---
History of Present Illness Consult details Consult date: 09/05/21 Narrative: Consulting complaint distal right ureteric stone with pain Allan is a very pleasant male. presents with 2-3 day history of progressive right flank pain Initial creatinine 1.6, WBC 12.7 creatinine is down to 1.2 with hydration and WBC is down to 8 Imaging - 09/19 Right kidney: There is marked hydronephrosis right kidney with distention renal pelvis calyces and the right ureter to the distal lower pelvis. There is a stone in the lower right ureter just proximal to the ureterovesical junction measuring 8 x 4 mm in size. No additional stone in the ureter. There is a 3 mm stone and there are 2 adjacent 1 mm stones in the lower pole of the right kidney. Right kidney is of normal size and contour recommendation cystoscopy, ureteroscopy, laser lithotripsy and stent placement Review of Systems Constitutional: Constitutional: Denies chills and Denies fever(s) Cardiovascular: Cardiovascular: Reports no additional cardiovascular complaints and Denies syncope Respiratory: Respiratory: Denies cough Gastrointestinal: Gastrointestinal: Denies abdominal pain and Denies heartburn Genitourinary: Genitourinary: Reports as per HPI and Denies change in libido Neurologic: Denies syncope Psychiatric: Psychiatric: Denies change in libido Endocrine: Endocrine: Denies change in libido [facility] Social History Social History Patient Tobacco Use Status: Never used Tobacco Use of substances other than those prescribed or required for medical reasons: No Are you DNR?: No Advance Directives: No Advance Directives Information Provided: No service: No Meds Allergies Allergy/AdvReac Type Severity Reaction Status Date / Time Penicillins Allergy Mild HIVES Unverified 11/16/19 14:41 Active Medications: Current Medications Acetaminophen (Acetaminophen 325 Mg Tablet) 650 mg PO Q6H PRN PRN Reason: Pain, Mild (Pain Scale 1-3) Enoxaparin Sodium (Enoxaparin Sodium 40 Mg/0.4 Ml Syringe) 40 mg SUBCUT Q24H [place] Last Admin: 09/04/21 19:45 Dose: 40 mg Fentanyl (Fentanyl Citrate/Pf 100 Mcg/2 Ml Vial) 50 mcg IVPUSH Q5M PRN; Protocol PRN Reason: Pain, Severe (Pain Scale 7-10) Hydromorphone HCl (Hydromorphone Hcl 0.5 Mg/0.5 Ml Syringe) 0.5 mg IVPUSH Q4H PRN; Protocol PRN Reason: Pain, Severe (Pain Scale 7-10) Last Admin: 09/05/21 13:56 Dose: 0.5 mg Ceftriaxone Sodium 1 gm/ (Sodium Chloride) 50 mls @ 100 mls/hr IV Q24H [facility] Last Admin: 09/04/21 20:10 Dose: 100 mls/hr Melatonin (Melatonin 3 Mg Tablet) 6 mg PO BEDTIME PRN PRN Reason: Insomnia Omeprazole (Omeprazole 20 Mg Capsule.Dr) 20 mg PO DAILY@629 [facility] Last Admin: 09/05/21 05:48 Dose: 20 mg Ondansetron HCl (Ondansetron Hcl 4 Mg/2 Ml Vial) 4 mg IVPUSH ONCE PRN PRN Reason: Nausea and Vomiting Oxycodone HCl (Oxycodone Hcl Immed Release 5 Mg Tablet) 10 mg PO ONCE PRN PRN Reason: Pain, Severe (Pain Scale 7-10) Pharmacy Consult (Consult Rx Perform Med Rec) 1 each MISCELLANE ONCE PRN PRN Reason: Consult order Senna (Sennosides 8.6 Mg Tablet) 17.2 mg PO BEDTIME PRN PRN Reason: Constipation Sodium Chloride (0.9 % Sodium Chloride Flush 3 Ml Syringe) 3 ml IVFLUSH QSHIFT [facility] Last Admin: 09/05/21 09:59 Dose: 3 ml Tamsulosin HCl (Tamsulosin Hcl 0.4 Mg Capsule) 0.4 mg PO DAILY [facility] Last Admin: 09/05/21 10:10 Dose: Not Given Home Medications Medication Instructions Recorded Confirmed Last Taken Type cholecalciferol (vitamin D3) 25 25 mcg PO DAILY 09/04/21 09/04/21 Unknown History mcg (1,000 unit) tablet (Vitamin D3) omeprazole 20 mg tablet,delayed 20 mg PO DAILY@0630 09/04/21 09/04/21 09/04/21 History release vitamin B complex 1 tab PO DAILY 09/04/21 09/04/21 Unknown History Physical Exam Vital Signs: Vital Signs: Last Vital Signs Temp 98.0 F 09/05/21 16:29 Pulse 83 09/05/21 16:29 Resp 18 09/05/21 16:29 BP 139/77 09/05/21 16:29 Pulse Ox 100 07/08/22 16:29 O2 Del Method 09/05/21 16:29 BMI result Body Mass Index 22.8 Const: General: cooperative, healthy appearing, comfortable and no acute distress Orientation/consciousness: patient oriented x3 HEENT: Face and sinus: Yes normal facial exam Mouth: moist mucous membranes Neck: Neck: Yes normal visual inspection, Yes full ROM and Yes trachea midline Chest: Chest palpation & inspection: normal inspection of the chest Resp: Effort & Inspection: normal respiratory effort, able to speak in complete sentences and no respiratory distress GI: Inspection: Yes normal to inspection Back/Spine/Pelvis: Cervical Spine: normal cervical lordosis Thoracic/Lumbar Spine: thoracic and lumbar spine normal to inspection Skin: General skin exam: no rashes or lesions noted Neuro: General: patient oriented x3, gait normal, tone normal and moves all extremities Extrem: General: Yes normal to inspection and Yes capillary refill normal Results Labs Result diagrams: 09/05/21 05:56 09/05/21 05:56 Labs: Abnormal lab results 09/05/21 09/05/21 Range/Units 05:56 05:56 RBC 4.11 L (4.60-5.80) X10*6/uL Hgb 12.6 L (14.0-18.0) g/dl Hct 37.1 L (42.0-52.0) % Immature Gran % (Auto) 0.6 H (0.0-0.4) % Abs Immat Gran (auto) 0.05 H (0.00-0.03) X10*3/uL Calcium 8.3 L (8.4-10.2) mg/dL Short CBC 09/05/21 Range/Units 05:56 WBC 8.0 (4.8-10.8) X10*3/uL Hgb 12.6 L (14.0-18.0) g/dl Hct 37.1 L (42.0-52.0) % Plt Count 301 (160-400) X10*3/uL BMP 09/05/21 05:56 Sodium 137 Potassium 4.6 Chloride 106 Carbon Dioxide 24 BUN 16 Creatinine 1.23 Calcium 8.3 L Urine 09/04/21 Range/Units 16:33 Urine Color YELLOW Urine Appearance CLEAR Urine pH 6.0 (5.0-8.0) Ur Specific [place] 1.025 (1.005-1.025) Urine Protein NEG (NEG-TRACE) MG/DL Urine Glucose (UA) NEG (NEG) MG/DL All other labs normal. Assessment and Plan (1) Hydronephrosis with obstructing calculus: Status: Acute Plan Ureteroscopy We discussed the nature of the decision and reasonable alternatives for performing the above surgery. Interventions include chemical dissolution, ESWL, ureteroscopy with laser lithotripsy and stent placement, PCNL. Options such as medical therapy were discussed. The relative uncertainties and benefits related to each alternate procedure were adequately discussed. General surgical risks including, but not limited to, pain, bleeding, infection, myocardial infarction, pulmonary embolus, deep vein thrombosis and cerebrovascular accident which may result in further hospitalization were discussed. Full disclosure of the procedure as well as all major risks, benefits and complications were discussed including but not limited to damage to the urethra, bladder and kidney infection, damage to the ureter, stent migration or malposition, scarring to the renal pelvis, remnant stone fragments, subsequent stone passage with need for secondary procedures. The overall secondary procedure rate is approximately 10-15%. The success rate of the procedure was discussed. Success of the procedure in the short-term does not necessarily guarantee that long-term success will be maintained. Suitable follow up will need to be maintained. The patient showed understanding of discussion and wishes to proceed with - cystoscopy, retrograde, ureteroscopy, possible lithotripsy/stone basketing and stent on the right side Procedures Date of Service Date of Service: 09/05/21
--- NOTE | 2021-09-05 16:44 | MHC.SHP ---
Pre-Procedural Eval Section A Date of Service: 09/05/21 The patient is an INPATIENT: Yes Changes since office visit: No Cold of Flu in the past 2 weeks, No New Medical Problems, No Changes in Medication and No Patient answered all questions The History & Physical has been completed within 30 days and I have reviewed it.: Yes Section B Chief Complaint: Nephrolithiasis Allergies: Allergies Allergy/AdvReac Type Severity Reaction Status Date / Time Penicillins Allergy Mild HIVES Unverified 11/16/19 14:41 Review of Systems Sugical H&P ROS: Negative: Constitution, Cardiovascular, Respiratory, Neurological, Psychiatric, Hem-Onc, Allergic/Immunologic, Gastrointestinal, Genitourinary, Musculoskeletal, Integumentary, Endocrine and Eyes/Ears/Nose/Throat Exam Surgical H&P Exam: Normal: HEENT, Normal: Heart, Normal: Lungs, Normal: Extremities, Normal: Abdomen, Normal: Skin and Normal: Neurological Plan Diagnosis/Plan: Unchanged ( cystoscopy, right retrograde, right ureteroscopy with laser lithotripsy stent placement) I have reviewed the history and physical and performed a pertinent physical examination on my patient. No changes have occurred unless specified.
--- NOTE | 2021-09-05 17:30 | P.OP_ITS ---
Operative Note Operative Note Date of Service: 09/05/21 Narrative: PreOperative Diagnosis: right distal ureteric stone with hydroureteronephrosis Post Operative Diagnosis: right distal ureteric stone with hydroureteronephrosis Procedure: - cystoscopy, right retrograde - right dilatation of ureteric orifice under fluoroscopy - right ureteroscopy, laser lithotripsy, stone basketing - right stent placement Surgeon: Dr Tommy Swartz Anesthesia: General Indications for procedure: right distal ureteric stone 8 mm with elevated creatinine in hydroureteronephrosis with pain management Procedure: After informed consent was verified patient was brought to the operating placed in supine position. Anesthesia was administered per protocol. Patient was placed in modified dorsal lithotomy position and prepped and draped in a sterile fashion. Safety pause time-out and side of surgery confirmed. Antibiotics conf irmed. A 22 [place] cystoscope was inserted per urethra. Bladder was normal in its entirety. Both ureteric orifices were in normal position. The right ureteric orifice was cannulated and a retrograde examination was performed. right filling defects seen in distal portion of ureter . A Sensor guidewire was placed up to the level of the renal pelvis under fluoroscopy. The rigid cystoscope was removed. A Maria Antonia dilator was placed over the Sensor guidewire and used to dilate the ureteric orifice under fluoroscopy. The dilator was removed. The semi rigid ureteral scope was placed alongside the Sensor guidewire. stone was encountered in using a 360 micron laser fiber the stone was broken into small pieces. A flat wire basket was used for removal of stone pieces. A 6 [place] by Twenty-eight cm double-J stent was placed into the renal pelvis and bladder under a combination of fluoroscopy and direct visualization. The bladder was emptied. The patient tolerated the procedure well and was extubated in the operating room, and transferred in stable condition to the recovery area. Pathology: stone fragments Drains: 6 [place] by 28 cm double-J stent
[2021-09-05] MEDS: Phenazopyridine HCL 100 MG TABLET PO (17:54)
--- NOTE | 2021-09-05 18:13 | PM.DS ---
DS: Providers Provider Date of Service: 09/05/21 Date of admission: 09/04/21 19:04 Primary care physician: Eddie Reed MD Consults: 09/04/21 19:04 Consult to Urology Routine Consulting Provider: Tommy Swartz Reason for consultation: Renal calculus/hydronephrosis DS: Diagnosis Discharge Diagnosis (1) Hydronephrosis with obstructing calculus: Status: Acute DS: Summary Hospital Course Hospital Course: Patient underwent cystoscopy by Dr. Swartz and subsequently discharged Time Spent with Patient Time attestation: Total time spent providing and/or coordinating discharge services: Discharge coordination time: Greater than 30 minutes Quality: Safe Use of Opioids Does Pt have an Active Cancer Diagnosis on the Problem List?: No Quality: Stroke Does the patient have a stroke diagnosis?: No Physical Exam Vital Signs: Vital Signs: Last Vital Signs Temp 98.5 F 09/05/21 17:35 Pulse 72 09/05/21 18:05 Resp 16 09/05/21 18:05 BP 129/71 09/05/21 18:05 Pulse Ox 100 09/05/21 18:05 O2 Del Method 09/05/21 18:05 BMI result Body Mass Index 22.8 DS: Data Data Completed and Pending Pending studies at discharge: Pending at discharge 09/05/21 17:25 Surgical [PTH] Routine Labs on day of discharge: Laboratory Results - last 24 hr 09/04/21 09/05/21 09/05/21 17:57 05:56 05:56 WBC 8.0 RBC 4.11 L Hgb 12.6 L Hct 37.1 L MCV 90.3 MCH 30.7 MCHC 34.0 RDW 11.9 Plt Count 301 MPV 9.8 Immature Gran % (Auto) 0.6 H Neut % (Auto) 66.6 Lymph % (Auto) 24.3 [place] % (Auto) 6.0 Eos % (Auto) 2.0 Baso % (Auto) 0.5 Lymph # (Auto) 1.9 [place] # (Auto) 0.5 Eos # (Auto) 0.2 Baso # (Auto) 0.0 Abs Immat Gran (auto) 0.05 H Absolute Neuts (auto) 5.3 Absolute Nucleated RBC 0.000 Nucleated RBC % (auto) 0.0 Sodium 137 Potassium 4.6 Chloride 106 Carbon Dioxide 24 Anion Gap 12 BUN 16 Creatinine 1.23 Estim Creat Clear Calc 67.3 Estimated GFR 59 Random Glucose 83 Calcium 8.3 L COVID-19 ([facility]) Negative COVID-19 Clin Com See Note Discharge Plan Discharge Anticipated Discharge Date/Time: 09/05/21 18:07 Patient Disposition: Home, Self-Care Discharge Diagnosis: ureteric stone Referrals: Tommy Swartz MD [Physician] - 2 Weeks ( cysto stent removal) Eddie Reed MD [Primary Care Provider] - None Discharge Medications: New phenazopyridine [Pyridium] 100 mg tablet 100 mg PO TID PRN (Reason: spasm) 4 Days Qty: 12 0RF sulfamethoxazole-trimethoprim [Bactrim] 400-80 mg tablet 1 tab PO DAILY Qty: 10 0RF tamsulosin 0.4 mg capsule 0.4 mg PO BEDTIME 14 Days Qty: 14 0RF naproxen 500 mg tablet 500 mg PO BID PRN (Reason: pain) 7 Days Qty: 14 0RF tramadol 50 mg tablet 50 mg PO Q6H PRN (Reason: pain (scale score 1-3)) Qty: 8 0RF Continued vitamin B complex Tablet 1 tab PO DAILY cholecalciferol (vitamin D3) [Vitamin D3] 25 mcg (1,000 unit) Tablet 25 mcg PO DAILY omeprazole 20 mg Tablet,Delayed Release (Dr/Ec) 20 mg PO DAILY@0630 Discharge Orders: Discharge Order (Routine); Ordered 09/05/21 Ordered By: Tommy Swartz Diet: Advance to usual diet Activity on Discharge: As tolerated Stand Alone Forms: Patient Portal Discharge page Care Plan Goals: stones Health Concerns: stones Plan of Treatment: stones Assessment: stones Patient Instructions: Ureteroscopy (DC)
[2021-09-14 05:16] LABS: Stone Source RIGHT URETERAL STONE
== END 2021-09-05 18:29 | disposition home or self-care (01) | DRG 446 ==
LOC: HO.ED 17:53 → HO.EDOVER 19:16 → HO.S3 09-05 14:52 → HO.EDOVER 09-05 18:09
PROVIDERS: Physician Assistant; Urology; Admitting Provider Hospitalist; Emergency Provider Emergency Medicine; PCP Internal Medicine; Visit Provider Internal Medicine
PROC: 0TC68ZZ Extirpation of Matter from Right Ureter, Via Natural or Artificial Opening Endoscopic (ICD-10-PCS; principal; 2021-09-05 16:30)
DX: N13.2 Hydronephrosis with renal and ureteral calculous obstruction (principal); N17.9 Acute kidney failure, unspecified; K21.9 Gastro-esophageal reflux disease without esophagitis; N40.0 Benign prostatic hyperplasia without lower urinary tract symptoms; Z20.822 Contact with and (suspected) exposure to COVID-19; Z88.0 Allergy status to penicillin; Z79.899 Other long term (current) drug therapy
CPT/HCPCS: 36415; 74176; 80048; 81001; 82365; 85025; 87086; 87635; 88300; 96361; 96374; 99285; C1758; C1769; C2617; J0696; J1100; J1170; J1650; J1885; J1956; J2250; J2405; J3010; Q9967

== ENCOUNTER → 2021-09-26 13:06 | Outpatient (BNVA) | payer OTHER, SELFPAY | PROVIDERS: PCP Internal Medicine; Visit Provider Urology | DX: N13.2 Hydronephrosis with renal and ureteral calculous obstruction (principal) | CPT/HCPCS: 52310 ==

== ENCOUNTER 2021-12-02 07:20 | Outpatient (REF) | payer OTHER, SELFPAY ==
--- NOTE | ~2021-12-02 | US_ITS ---
EXAMINATION: US RETROPERITONEAL LIMITED (RENAL ONLY) CLINICAL INFORMATION: Calculus of kidney. COMPARISON: CT abdomen and pelvis 09/04/2021. TECHNIQUE: Real-time imaging of the kidneys. FINDINGS: RIGHT KIDNEY: 10.9 x 5.8 x 5.3 cm (SAG x AP x TRV). The kidney is normal in size, contour, and echogenicity. Renal cortical thickness is normal. There are 2 small cysts, largest measuring 6 mm in the lower pole. There is a 2 mm echogenic density with twinkle artifact in the lower pole suggestive of a stone. There may be an additional small lower pole stone. There is no hydronephrosis. Previously identified right hydronephrosis August [address] has resolved. LEFT KIDNEY: 11.1 x 5.4 x 5.1 cm (SAG x AP x TRV). The kidney is normal in size, contour, and echogenicity. Renal cortical thickness is normal. There are multiple peripelvic and exophytic cysts, largest exophytic lower pole cyst measuring 2.1 x 1.4 x 1.6 cm. There is a 3 x 4 mm echogenic density in the lower pole with twinkle artifact suggestive of a stone. There may be additional smaller left lower pole stones. No hydronephrosis. US/US renal BI IMPRESSION: Bilateral renal stones. Bilateral renal cysts. Resolved right hydronephrosis from CT August 2021.
== END 2021-12-02 07:21 | disposition home or self-care (01) ==
LOC: HO.US 07:20
PROVIDERS: Visit Provider Urology
DX: N13.2 Hydronephrosis with renal and ureteral calculous obstruction (principal)
CPT/HCPCS: 76775

== ENCOUNTER 2022-03-19 05:56 | Outpatient (REF) | payer OTHER, SELFPAY ==
[2022-03-19 06:01] LABS: MANUAL DIFF FLAG NO
[2022-03-19 07:45] LABS: Basophils Absolute Auto 0.1 X10*3/uL (0.0-0.2); Basophils Percent Auto 0.7 % (0-2); Eosinophils Absolute Auto 0.3 X10*3/uL (0.0-0.4); Eosinophils Percent Auto 3.7 % (0-4); Hematocrit 44.7 % (42.0-52.0); Hemoglobin 15.1 g/dl (14.0-18.0); Imm Gran Abs Auto 0.02 X10*3/uL (0.00-0.03); Imm Gran Pct Auto 0.3 % (0.0-0.4); Lymphocytes Absolute Auto 2.5 X10*3/uL (1.2-4.9); Lymphocytes Percent Auto 34.6 % (20-40); Mean Corpuscular HGB Conc 33.8 g/dl (31.0-36.0); Mean Corpuscular Hemoglobin 30.8 pg (27.0-33.0); Mean Corpuscular Volume 91.2 fL (80.0-98.0); Mean Platelet Volume 11.1 fL (9.4-12.4); Monocytes Absolute Auto 0.4 X10*3/uL (0.1-1.2); Monocytes Percent Auto 5.6 % (2-11); Neutrophils Absolute Auto 3.9 x10*3/uL (2.0-8.3); Neutrophils Percent Auto 55.1 % (45-73); Platelet Count 236 X10*3/uL (160-400); Red Cell Distribution Width 12.8 % (11.0-16.0); White Blood Count 7.1 X10*3/uL (4.8-10.8)
[2022-03-19 08:25] LABS: Alanine Aminotransferase 20 U/L (0-40); Albumin Level 3.8 g/dL (3.5-5.0); Alkaline Phosphatase 81 U/L (39-117); Anion Gap 13 (12-20); Aspartate Amino Transferase 16 U/L (5-37); Bilirubin Total 0.9 mg/dL (0.0-1.0); Blood Urea Nitrogen 14 mg/dL (9-16); Calcium 9.3 mg/dL (8.4-10.2); Carbon Dioxide 28 mmol/L (22-29); Chloride 106 mmol/L (96-108); Cholesterol 192 mg/dL; Estimated Glomerular Filt Rate > 60; Glucose Fasting 97 mg/dL (60-99); HDL Cholesterol 53 mg/dL; LDL Cholesterol Calculated 116 mg/dl; Potassium 4.6 mmol/L (3.3-5.1); Sodium 142 mmol/L (135-145); Total Protein 6.6 g/dL (6.5-8.0); Triglycerides 118 mg/dL
[2022-03-19 08:42] LABS: Prostate Specific Antigen 0.72 ng/mL (<0.05-4.0)
== END 2022-03-19 05:57 | disposition home or self-care (01) ==
LOC: HO.LAB 05:56
PROVIDERS: PCP Internal Medicine; Visit Provider Internal Medicine
DX: Z00.00 Encounter for general adult medical examination without abnormal findings (principal); Z12.5 Encounter for screening for malignant neoplasm of prostate
CPT/HCPCS: 36415; 80053; 80061; 84153; 85025

== ENCOUNTER 2022-06-15 07:27 | Outpatient (REF) | payer OTHER, SELFPAY ==
--- NOTE | ~2022-06-15 | US_ITS ---
EXAMINATION: US RETROPERITONEAL LIMITED (RENAL ONLY) CLINICAL INFORMATION: Hydronephrosis with renal and ureteral calculus obstruction. COMPARISON: Ultrasound retroperitoneal limited (renal only) 12/02/2021. CT abdomen and pelvis without contrast 09/04/2021. TECHNIQUE: Real-time imaging of the kidneys. FINDINGS: RIGHT KIDNEY: 10.6 x 5.8 x 5.5 cm (SAG x AP x TRV). The kidney is normal in size, contour, and echogenicity. Renal cortical thickness is normal. No renal calculi or hydronephrosis. Stable 1.3 cm cyst with thin septation. Bosniak 2. No imaging follow-up recommended. LEFT KIDNEY: 11.2 x 6.4 x 5.7 cm (SAG x AP x TRV). The kidney is normal in size, contour, and echogenicity. Renal cortical thickness is normal. No hydronephrosis. Multiple simple cysts are stable, largest measuring 2.2 cm in the midpole. Bosniak 1. No imaging follow-up recommended. 6 mm nonobstructing calculus in the lower pole. ADDITIONAL FINDINGS: Incidental note of a 0.9 cm simple cyst in the right lobe of the liver. No imaging follow-up is recommended. US/US renal BI IMPRESSION: 6 mm nonobstructing calculus in the left lower kidney. No nephrolithiasis visible on the right. No hydronephrosis.
== END 2022-06-15 07:28 | disposition home or self-care (01) ==
LOC: HO.US 07:27
PROVIDERS: PCP Internal Medicine; Visit Provider Urology
DX: N13.2 Hydronephrosis with renal and ureteral calculous obstruction (principal)
CPT/HCPCS: 76775

== ENCOUNTER → 2022-07-03 15:34 | Outpatient (BNVA) | payer MEDICARE, SELFPAY | PROVIDERS: PCP Internal Medicine; Visit Provider Urology | DX: N13.2 Hydronephrosis with renal and ureteral calculous obstruction (principal) | CPT/HCPCS: 99212 ==

== ENCOUNTER 2023-01-06 14:46 | Outpatient (AMB) | payer MEDICARE, SELFPAY ==
--- NOTE | 2023-01-06 14:56 | A.OFFVIS_ITS ---
Intake Intake Visit Reasons: follow up/[facility](set) Intake Note: Patient is Present for Follow Up Urology Medication:Tadalafil Antibiotic Allergies: Penicillins Blood Thinners: None Allergies Penicillins Allergy (Mild, Verified 07/03/22 15:48) HIVES Medication List - Last Reconciled 01/06/23 by Tommy Swartz MD Echinacea purpurea extract 125 mg PO DAILY omeprazole 20 mg orally every 3rd day; tadalafil 5 mg PO DAILY 90 days vitamin B complex 1 tab PO DAILY HPI HPI Comments History of Present Illness Details Allan is a pleasant male. He is a patient Dr. Reed. He is seen for the following urologic conditions - nephrolithiasis - erectile dysfunction - in lower urinary tract symptoms Discussed results No stones on imaging Litholink shows low volume, borderline calcium, low citrate Instructions to add more lemon juice to water Erectile dysfunction Prior responsiveness to daily tadalafil Also helped with nocturia Prescription provided Nephrolithiasis 09/19 hospital admission via ER for urete roscopy Imaging - 09/19 right distal ureteric stone with 3 mm stones bilateral - 12/21 renal ultrasound, bilateral ltey l cyst up to 2 cm, question of 6 mm stone left lower pole Intervention - 09/19 ureteroscopy Stone composition - 09/19 mixed calcium oxalate 24 hour urine - 10/20 Low volume, Ca 98, Citrate 540, O x 45, 10/21 borderline low volume, citrate low, other labs normal Therapeutic plan - 2 L fluids - lemon juice PFSH Social History Patient Tobacco Use Status: Never used Tobacco service: No Review of Systems Const Denies chills and Denies fever(s) Card Reports no additional complaints and Denies syncope Resp Denies cough GI Denies abdominal pain and Denies heartburn Reports as per HPI and Denies change in libido Neuro Denies syncope Psych Denies change in libido Endo Denies change in libido Physical Exam Const General: cooperative, healthy appearing, comfortable and no acute distress Orientation/consciousness: patient oriented x3 HEENT Face and sinus: Yes normal facial exam Mouth: moist mucous membranes Neck Neck: Yes normal visual inspection, Yes full ROM and Yes trachea midline Chest Chest palpation & inspection: normal inspection of the chest Resp Effort & Inspection: normal respiratory effort, able to speak in complete sentences and no respiratory distress GI Inspection: Yes normal to inspection Back/Spine/Pelvis Cervical Spine: normal cervical lordosis Thoracic/Lumbar Spine: thoracic and lumbar spine normal to inspection Skin General skin exam: no rashes or lesions noted Neuro General: patient oriented x3, gait normal, tone normal and moves all extremities Extrem General: Yes normal to inspection and Yes capillary refill normal Assessment & Plan Assessment & Plan (1) Erectile dysfunction due to arterial insufficiency: Code(s): N52.01 - Erectile dysfunction due to arterial insufficiency (2) Bladder outlet obstruction: Code(s): N32.0 - Bladder-neck obstruction (3) Nocturia more than twice per night: Code(s): R35.1 - Nocturia Plan Six month follow-up Medications: Changed From tadalafil 5 mg PO DAILY PRN N52.01 - Erectile dysfunction due to arterial insufficiency To tadalafil 5 mg PO DAILY 90 days 90 tabs 1RF N52.01 - Erectile dysfunction due to arterial insufficiency Patient Instructions: Imaging studies, laboratory and physical exam results were discussed and reviewed in detail. No major barriers to patient understanding were identified. An opportunity to ask questions regarding the treatment plan was provided. All questions were answered. The patient expressed understanding and agreement with the above treatment plan. The patient is aware they should contact our office by phone for worsening of their current condition or the appearance of new urologic symptoms. Compliance is encouraged with any medications and followup testing that is ordered. It is a privilege to participate in the urologic care of your patient. If you have any questions or concerns regarding treatment for the above conditions, or other urologic issues, please do not hesitate to contact me. The office telephone contact is [phone]. This note is constructed using voice recognition software. While every effort has been made to ensure accuracy physician specialist errors may have been included. Yours sincerely, Dr Tommy Swartz MD, [facility] Providers of Expert, Compassionate Care for the Genitourinary System Coding Level of Care Code Est Pt Level 4 (83655) Diagnoses Erectile dysfunction due to arterial insufficiency N52.01 Bladder outlet obstruction N32.0 Nocturia more than twice per night R35.1
== END 2023-01-06 15:21 | disposition home or self-care (01) ==
PROVIDERS: Visit Provider Urology
DX: R35.1 Nocturia (principal); N52.01 Erectile dysfunction due to arterial insufficiency; N32.0 Bladder-neck obstruction
CPT/HCPCS: 99214

== ENCOUNTER → 2023-01-06 14:46 | Outpatient (BNVA) | payer MEDICARE, SELFPAY | PROVIDERS: Visit Provider Urology | DX: N52.01 Erectile dysfunction due to arterial insufficiency (principal); N32.0 Bladder-neck obstruction; R35.1 Nocturia | CPT/HCPCS: 99212 ==

== ENCOUNTER 2023-02-05 09:38 | Outpatient (REF) | payer MEDICARE, SELFPAY ==
--- NOTE | ~2023-02-05 | XR_ITS ---
EXAMINATION: XR SINUSES CLINICAL INFORMATION: Sinus pain COMPARISON: None available. TECHNIQUE: 4 FINDINGS: Paranasal sinuses appear clear without air-fluid levels. No fractures are identified. No radiodense foreign bodies. XR/XR sinus min 3V IMPRESSION: Unremarkable examination.
== END 2023-02-05 09:39 | disposition home or self-care (01) ==
LOC: HO.XRAY 09:38
PROVIDERS: PCP Internal Medicine; Visit Provider Internal Medicine
DX: J34.89 Other specified disorders of nose and nasal sinuses (principal)
CPT/HCPCS: 70220

== ENCOUNTER 2023-03-08 07:03 | Outpatient (REF) | payer MEDICARE, SELFPAY ==
[2023-03-08 07:19] LABS: MANUAL DIFF FLAG NO
[2023-03-08 07:58] LABS: Basophils Percent Auto 0.5 % (0-2); Eosinophils Absolute Auto 0.2 X10*3/uL (0.0-0.4); Hematocrit 43.7 % (42.0-52.0); Hemoglobin 14.8 g/dl (14.0-18.0); Imm Gran Abs Auto 0.01 X10*3/uL (0.00-0.03); Imm Gran Pct Auto 0.2 % (0.0-0.4); Lymphocytes Absolute Auto 2.4 X10*3/uL (1.2-4.9); Lymphocytes Percent Auto 36.8 % (20-40); Mean Corpuscular HGB Conc 33.9 g/dl (31.0-36.0); Mean Corpuscular Hemoglobin 31.1 pg (27.0-33.0); Mean Corpuscular Volume 91.8 fL (80.0-98.0); Mean Platelet Volume 10.4 fL (9.4-12.4); Monocytes Absolute Auto 0.4 X10*3/uL (0.1-1.2); Monocytes Percent Auto 5.6 % (2-11); Neutrophils Absolute Auto 3.5 x10*3/uL (2.0-8.3); Neutrophils Percent Auto 53.9 % (45-73); Platelet Count 230 X10*3/uL (160-400); Red Blood Count 4.76 X10*6/uL (4.60-5.80); Red Cell Distribution Width 12.7 % (11.0-16.0); White Blood Count 6.4 X10*3/uL (4.8-10.8)
[2023-03-08 08:21] LABS: Alanine Aminotransferase 24 U/L (0-40); Albumin Level 4.2 g/dL (3.5-5.0); Alkaline Phosphatase 85 U/L (39-117); Anion Gap 8 (12-20); Aspartate Amino Transferase 16 U/L (5-37); Bilirubin Total 0.9 mg/dL (0.0-1.0); Blood Urea Nitrogen 15 mg/dL (9-16); Calcium 9.6 mg/dL (8.4-10.2); Carbon Dioxide 29 mmol/L (22-29); Chloride 107 mmol/L (96-108); Cholesterol 221 mg/dL (<200); Estimated Glomerular Filt Rate > 60; Glucose Random 97 mg/dL (60-115); HDL Cholesterol 61 mg/dL (>40); LDL Cholesterol Calculated 142 mg/dL (<100); Potassium 4.3 mmol/L (3.3-5.1); Sodium 140 mmol/L (135-145); Total Protein 7.4 g/dL (6.5-8.0); Triglycerides 93 mg/dL (<150)
[2023-03-08 08:39] LABS: Prostate Specific Antigen Scr 0.71 ng/mL (<0.05-4.0)
[2023-03-12 16:59] LABS: Factor V Leiden POSITIVE
== END 2023-03-08 07:04 | disposition home or self-care (01) ==
LOC: HO.LAB 07:03
PROVIDERS: PCP Internal Medicine; Visit Provider Internal Medicine
DX: E78.41 Elevated Lipoprotein(a) (principal); K21.9 Gastro-esophageal reflux disease without esophagitis; N40.0 Benign prostatic hyperplasia without lower urinary tract symptoms; Z83.2 Family history of diseases of the blood and blood-forming organs and certain disorders involving the immune mechanism; Z12.5 Encounter for screening for malignant neoplasm of prostate
CPT/HCPCS: 36415; 80053; 80061; 81241; 84153; 85025

== ENCOUNTER 2023-05-18 09:13 | Day surgery (SDC) | payer MEDICARE, SELFPAY ==
[2023-05-14 14:29] VITALS: BMI 22.7
--- NOTE | 2023-05-17 11:56 | HO.ANESPROP2 ---
Documented by User: Michelle Boggs NP 05/17/23 11:56 HPI - Anesthesia Eval Consult details Narrative: 67yo M for Upper Endoscopy PMFSH Active Problems Active Problems: All Active Problems (Updated 05/14/23 @ 14:25 by Edwige Nice RN) Erectile dysfunction due to arterial insufficiency (Acute) Bladder outlet obstruction (Acute) Nocturia more than twice per night (Acute) Hydronephrosis with obstructing calculus (Acute) Past Medical History Medical History Nephrolithiasis Elevated cholesterol GERD (gastroesophageal reflux disease) Family History Family history of problems with anesthesia: No Surgical History Surgical History H/O cystoscopy Hx of left knee surgery H/O colonoscopy History of uvulectomy History of esophagogastroduodenoscopy (EGD) History of Problems with Anesthesia: No Social History Social History Patient Tobacco Use Status: Never used Tobacco Are you DNR?: No Advance Directives: No Advance Directives Information Provided: Yes Nutrition Risks: No Nutritional Risk service: No Meds Allergies Allergy/AdvReac Type Severity Reaction Status Date / Time Penicillins Allergy Mild HIVES Verified 05/18/23 09:25 Home Medications Medication Instructions Recorded Confirmed Last Taken Type Echinacea purpurea extract 125 mg 125 mg PO DAILY 07/03/22 05/14/23 05/11/23 History tablet omeprazole 20 mg tablet,delayed 20 mg PO DAILY 07/03/22 05/14/23 Unknown History release cholecalciferol (vitamin D3) 25 25 mcg PO DAILY 05/14/23 05/14/23 05/11/23 History mcg (1,000 unit) capsule (Vitamin D3) omega 5-kjv-hlb-fish oil 1,200 mg 1 cap PO DAILY 05/14/23 05/14/23 05/11/23 History (144 mg-216 mg) capsule (Fish Oil) vitamin E 268 mg (400 unit) capsule 268 mg PO DAILY 05/14/23 05/14/23 05/11/23 History Exam Height,Weight and Vital Signs: Height 6 ft 1 in Weight 78.018 kg Pertinent Lab Results Pertinent Lab Results: Laboratory Tests 03/08/23 07:18 WBC 6.4 Hgb 14.8 Hct 43.7 Plt Count 230 Sodium 140 Potassium 4.3 Chloride 107 Carbon Dioxide 29 BUN 15 Creatinine 0.86 Assessment and Plan Assessment Anesthesia Assessment: Chart Reviewed Final Anesthetic Review Family History of Problems with Anesthesia: No History of Problems with Anesthesia: No Documented by User: Merle Gallego MD 05/18/23 09:56 HPI - Anesthesia Eval Consult details Narrative: 67yo M for Upper Endoscopy. Has been on omeprazole emt intermediate. EGD to assess for possible discontinuation PMFSH Active Problems Active Problems: All Active Problems (Updated 05/17/23 @ 09:47 by Merle Gallego MD) Erectile dysfunction due to arterial insufficiency (Acute) Bladder outlet obstruction (Acute) Nocturia more than twice per night (Acute) Hydronephrosis with obstructing calculus (Acute) Past Medical History Medical History Nephrolithiasis Elevated cholesterol GERD (gastroesophageal reflux disease) Family History Family history of problems with anesthesia: No Surgical History Surgical History H/O cystoscopy Hx of left knee surgery H/O colonoscopy History of uvulectomy History of esophagogastroduodenoscopy (EGD) History of Problems with Anesthesia: No Social History Social History Patient Tobacco Use Status: Never used Tobacco Are you DNR?: No Advance Directives: No Advance Directives Information Provided: Yes Nutrition Risks: No Nutritional Risk service: No Meds Allergies Allergy/AdvReac Type Severity Reaction Status Date / Time Penicillins Allergy Mild HIVES Verified 05/18/23 09:25 Home Medications Medication Instructions Recorded Confirmed Last Taken Type Echinacea purpurea extract 125 mg 125 mg PO DAILY 07/03/22 05/14/23 05/11/23 History tablet omeprazole 20 mg tablet,delayed 20 mg PO DAILY 07/03/22 05/14/23 Unknown History release cholecalciferol (vitamin D3) 25 25 mcg PO DAILY 05/14/23 05/14/23 05/11/23 History mcg (1,000 unit) capsule (Vitamin D3) omega 7-vwe-dri-fish oil 1,200 mg 1 cap PO DAILY 05/14/23 05/14/23 05/11/23 History (144 mg-216 mg) capsule (Fish Oil) vitamin E 268 mg (400 unit) capsule 268 mg PO DAILY 05/14/23 05/14/23 05/11/23 History Exam Height,Weight and Vital Signs: Height 6 ft 1 in Weight 78.018 kg Vital Signs Temp Pulse Resp BP Pulse Ox O2 Del Method 05/18/23 09:35 97.9 F 68 18 135/77 99 Room Air Airway Mallampati Class: II TM Dist: >3cm Neck ROM: Full Loose/Missing/Broken Teeth: No (Caps intact. Denies broken, loose, missing teeth) Heart: RRR Lungs: CTAB Assessment and Plan Assessment Anesthesia Assessment: Anesthesia Plan Discussed and Chart Reviewed Final Anesthetic Review Family History of Problems with Anesthesia: No History of Problems with Anesthesia: No NPO: Yes ASA Class: II Final Preanesthetic Review: No Changes in Pt Med Stat, Meds/Allgs Chart Reviewed, Consent Obtained/Reviewed and Anes Risks/Benef Reviewed Patient Risk: Low Procedure Risk: Low Anesthetic Plan Anesthetic Plan: MAC: and TIVA Disposition: Standard PACU
[2023-05-18 09:24] VITALS: BMI 22.4
[2023-05-18] MEDS: Lactated Ringers 1,000 ML 100 ML IVCONT (09:29)
[2023-05-18 09:35] VITALS: BP 135/77; PULSE 68; RESP 18; TEMP 36.6; O2SAT 99
--- NOTE | 2023-05-18 10:17 | MHC.SHP ---
Pre-Procedural Eval Section A - 24 Hr Update-Section A only Date of Service: 05/18/23 Section B - Complete if H&P > 30 days Chief Complaint: gerd, Details of Present Illness: see H&P no changes Relevant Family History (Specify if Yes): No Relevant Social History: None Present Medications: see Short Stay Collaborative assessment Medical History: No relevant PMH History of Previous Operations: No relevant previous surgery Allergies: Allergies Allergy/AdvReac Type Severity Reaction Status Date / Time Penicillins Allergy Mild HIVES Verified 05/18/23 09:25 Review of Systems Sugical H&P ROS: Negative: Constitution, Cardiovascular, Respiratory, Neurological, Psychiatric, Hem-Onc, Allergic/Immunologic, Gastrointestinal, Genitourinary, Musculoskeletal, Integumentary, Endocrine and Eyes/Ears/Nose/Throat Exam Surgical H&P Exam: Normal: HEENT, Normal: Heart, Normal: Lungs, Normal: Extremities, Normal: Abdomen, Normal: Skin and Normal: Neurological Plan Diagnosis/Plan: Unchanged I have reviewed the history and physical and performed a pertinent physical examination on my patient. No changes have occurred unless specified. Time Spent With Patient Time: Total time managing care of this patient today ____ minutes.
[2023-05-18 10:36] VITALS: BP 106/63; PULSE 78; RESP 17; TEMP 36.6; O2SAT 97
[2023-05-18 10:51] VITALS: BP 116/71; PULSE 69; RESP 16; TEMP 36.6; O2SAT 96
--- NOTE | 2023-05-18 11:06 | OP_ITS ---
DATE OF SERVICE: 05/18/2023 SURGEON: Omid Harvey MD INDICATIONS: Gastroesophageal reflux disease. PREOPERATIVE DIAGNOSIS: POSTOPERATIVE DIAGNOSIS: PROCEDURE PERFORMED: Upper endoscopy with biopsy. ESTIMATED BLOOD LOSS: COMPLICATIONS: ANESTHESIA: Monitored anesthesia care. ASSISTANTS: SPECIMENS: DESCRIPTION OF PROCEDURE: A history and physical was performed. The risks and benefits of the procedure were explained to the patient, and informed consent was obtained. The patient was placed in the left lateral decubitus position. The Olympus video gastroscope was introduced into the esophagus, stomach, and duodenum. Examination was performed. The scope was removed. He tolerated the procedure well and was returned to the recovery area in stable condition. FINDINGS: Esophagus: The esophagus showed a nonobstructive Schatzki ring. There was no esophagitis. Biopsies were obtained from the EG junction. There was a 5 cm hiatal hernia. Stomach: The stomach showed no evidence of masses or ulcers. There were approximately 4 or 5 less than 5 mm benign-appearing polyps measuring less than 5 mm. These were biopsied. Antral biopsies were also obtained to evaluate for H pylori. Duodenum: The bulb and 2nd portion were normal. IMPRESSION: 1. Gastroesophageal reflux disease. 2. Hiatal hernia. 3. Gastric polyps. RECOMMENDATION: Follow up the biopsy results. MD SHIRLEY Hale/PHILL / [id number]
--- NOTE | 2023-05-18 11:36 | PM.OP ---
Brief Operative Note Date of Service: 05/18/23 Pre-op diagnosis: gerd Post-op diagnosis: same Procedure: egd Surgeon: Omid Harvey MD Anesthesia: MAC Was an Straightening Press Operator used for this Procedure?: No Estimated blood loss (mL): 2 Pathology: other Condition: stable Disposition: PACU
== END 2023-05-18 11:51 | disposition home or self-care (01) ==
PROVIDERS: PCP Internal Medicine; Visit Provider Internal Medicine Gastroenterology
PROC: 0DJ08ZZ Inspection of Upper Intestinal Tract, Via Natural or Artificial Opening Endoscopic (ICD-10-PCS; CPT 43235; principal; 2023-05-18 11:10)
DX: K31.7 Polyp of stomach and duodenum (principal); K20.90 Esophagitis, unspecified without bleeding; K22.2 Esophageal obstruction; K44.9 Diaphragmatic hernia without obstruction or gangrene; K21.9 Gastro-esophageal reflux disease without esophagitis; E78.00 Pure hypercholesterolemia, unspecified
CPT/HCPCS: 43239; 88305; 88313; 88342; J2704

== ENCOUNTER 2023-06-21 06:40 | Outpatient (REF) | payer MEDICARE, SELFPAY ==
[2023-06-21 08:52] LABS: Cholesterol 224 mg/dL (<200); HDL Cholesterol 56 mg/dL (>40); LDL Cholesterol Calculated 139 mg/dL (<100); Triglycerides 149 mg/dL (<150)
== END 2023-06-21 06:41 | disposition home or self-care (01) ==
LOC: HO.LAB 06:40
PROVIDERS: PCP Internal Medicine; Visit Provider Internal Medicine
DX: E78.00 Pure hypercholesterolemia, unspecified (principal)
CPT/HCPCS: 36415; 80061

== ENCOUNTER 2023-09-07 07:41 | Outpatient (REF) | payer MEDICARE, SELFPAY ==
--- NOTE | ~2023-09-07 | US_ITS ---
EXAMINATION: US RETROPERITONEAL LIMITED (RENAL ONLY) CLINICAL INFORMATION: Hydronephrosis with renal and ureteral calculus obstruction. COMPARISON: Renal ultrasound 06/15/2022 and 12/02/2021. CT abdomen and pelvis 09/04/2021. TECHNIQUE: Real-time imaging of the kidneys. Limited visualization due to bowel gas and body habitus. FINDINGS: RIGHT KIDNEY: 11.7 x 5.4 x 5.5 cm (SAG x AP x TRV). No hydronephrosis. No renal calculi. Renal cortical thickness is normal. Limited visualization. 2.0 cm lower pole cyst with benign features. There is no indication for follow-up imaging. LEFT KIDNEY: 10.9 x 6.1 x 5.0 cm (SAG x AP x TRV). No hydronephrosis. Renal cortical thickness is normal. Multiple renal cysts, largest mid pole 2.0 cm. There is no specific indication for additional imaging at this time. There are 2 mid pole nonobstructive calculi each measuring 3 mm. Limited visualization. US/US renal BI IMPRESSION: No hydronephrosis. 2 left renal mid pole calculi, each measuring 3 mm.
== END 2023-09-07 07:42 | disposition home or self-care (01) ==
LOC: HO.US 07:41
PROVIDERS: PCP Internal Medicine; Visit Provider Urology
DX: N13.2 Hydronephrosis with renal and ureteral calculous obstruction (principal)
CPT/HCPCS: 76775

== ENCOUNTER 2023-09-14 08:11 | Outpatient (AMB) | payer MEDICARE, SELFPAY ==
--- NOTE | 2023-09-14 08:17 | A.OFFVIS_ITS ---
Intake Visit Reasons: 8M Follow Up-US/PVR(set) Intake Note: Patient presents for follow up on: Ultrasound and PVR Imagin09/07/23 Urology Medication:Tadalafil Antibiotic Allergies: Penicillins Blood Thinners: None Home Improvement Contractor Required: No Accompanied by: Self / Same As Patient Allergies Penicillins Allergy (Mild, Verified 09/14/23 08:30) HIVES Medication List - Last Reconciled 09/14/23 by Tommy Swartz MD cholecalciferol (vitamin D3) (Vitamin D3) 25 mcg PO DAILY Echinacea purpurea extract 125 mg PO DAILY omega 9-duv-wxg-fish oil 1,200 (144-216) mg (Fish Oil) 1 cap PO DAILY omeprazole 20 mg PO DAILY vitamin E 268 mg PO DAILY HPI Comments Details: Allan is a pleasant male. He is a patient Dr. Reed. He is seen for the following urologic conditions - nephrolithiasis - erectile dysfunction - in lower urinary tract symptoms Discussed results Small stone left side Continue lemon juice water May benefit B6 Yearly review Noted bilateral inguinal hernia Recommend assessment with general surgery Erectile dysfunction Prior responsiveness to daily tadalafil Also helped with nocturia Daily tadalafil 5 mg PSA 0.7 Nephrolithiasis 09/19 hospital admission via ER for ureteroscopy Imaging - 09/19 right distal ureteric stone with 3 mm stones bilateral - 12/21 renal ultrasound, bilateral renal cyst up to 2 cm, question of 6 mm stone left lower pole - 08/22 renal ultrasound. Bilateral renal cyst. 2 x 3 mm stone left side stable. Intervention - 09/19 ureteroscopy Stone composition - 09/19 mixed calcium oxalate 24 hour urine - 10/20 Low volume, Ca 98, Citrate 540, Ox 45, 10/21 borderline low volume, citrate low, other labs normal Therapeutic plan - 2 L fluids - lemon juice [facility] Medical History (Updated 09/14/23 @ 08:43 by Tommy Swartz MD) Nephrolithiasis Elevated cholesterol GERD (gastroesophageal reflux disease) Surgical History H/O cystoscopy Hx of left knee surgery H/O colonoscopy History of uvulectomy History of esophagogastroduodenoscopy (EGD) Social History Patient Tobacco Use Status: Never used Tobacco service: No Review of Systems Const Denies chills and Denies fever(s) Card Reports no additional complaints and Denies syncope Resp Denies cough GI Denies abdominal pain and Denies heartburn Reports as per HPI and Denies change in libido Neuro Denies syncope Psych Denies change in libido Endo Denies change in libido Physical Exam Const General: cooperative, healthy appearing, comfortable and no acute distress Orientation/consciousness: patient oriented x3 HEENT Face and sinus: Yes normal facial exam Mouth: moist mucous membranes Neck Neck: Yes normal visual inspection, Yes full ROM and Yes trachea midline Chest Chest palpation & inspection: normal inspection of the chest Resp Effort & Inspection: normal respiratory effort, able to speak in complete sentences and no respiratory distress GI Inspection: Yes normal to inspection Back/Spine/Pelvis Cervical Spine: normal cervical lordosis Thoracic/Lumbar Spine: thoracic and lumbar spine normal to inspection Skin General skin exam: no rashes or lesions noted Neuro General: patient oriented x3, gait normal, tone normal and moves all extremities Extrem General: Yes normal to inspection and Yes capillary refill normal Results AMB Urinalysis, Automated UA Leukoctes 0 Abdirahman/uL Last Edit by DueDil on 09/14/23 08:45 UA Nitrite Negative Last Edit by DueDil on 09/14/23 08:45 UA Urobilinogen 0.2 mg/dL Last Edit by DueDil on 09/14/23 08:45 UA Protein 0 mg/dL Last Edit by DueDil on 09/14/23 08:45 UA pH 8.0 Last Edit by DueDil on 09/14/23 08:45 UA Blood 0 Jon/uL Last Edit by DueDil on 09/14/23 08:45 UA Specific [place] 1.010 Last Edit by DueDil on 09/14/23 08:45 UA Ketone Negative Last Edit by DueDil on 09/14/23 08:45 UA Bilirubin 0 mg/dL Last Edit by DueDil on 09/14/23 08:45 UA Glucose 0 mg/dL Last Edit by DueDil on 09/14/23 08:45 Results Reviewed Results Reviewed: Laboratory Last Values Urine pH (Auto) 8.0 09/14/23 08:44 Specific [place] (Auto) 1.010 09/14/23 08:44 Urine Protein (Auto) 0 mg/dL 09/14/23 08:44 Glucose (UA)(Auto) 0 mg/dL 09/14/23 08:44 Urine Ketones (Auto) Negative 09/14/23 08:44 Urine Blood (Auto) 0 Jon/uL 09/14/23 08:44 Urine Nitrite (Auto) Negative 09/14/23 08:44 Urine Bilirubin (Auto) 0 mg/dL 09/14/23 08:44 Urine Urobilinogen (Auto) 0.2 mg/dL 09/14/23 08:44 Leukocyte Esterase (Auto) 0 Abdirahman/uL 09/14/23 08:44 Assessment & Plan Assessment & Plan (1) Nephrolithiasis: Code(s): N20.0 - Calculus of kidney Category: Medical (2) Erectile dysfunction due to arterial insufficiency: Code(s): N52.01 - Erectile dysfunction due to arterial insufficiency Category: Medical (3) Nocturia more than twice per night: Code(s): R35.1 - Nocturia Category: Medical (4) Hernia: Code(s): K46.9 - Unspecified abdominal hernia without obstruction or gangrene Category: Medical Plan Twelve month follow-up renal ultrasound General surgery referral Orders: Orders AMB Urinalysis Automated Today Z13.9 - Encounter for screening, unspecified US renal BI 12 Months N20.0 - Calculus of kidney Referrals General Surgery Referral K46.9 - Unspecified abdominal hernia without obstruction or gangrene Patient Instructions: Imaging studies, laboratory and physical exam results were discussed and reviewed in detail. No major barriers to patient understanding were identified. An opportunity to ask questions regarding the treatment plan was provided. All questions were answered. The patient expressed understanding and agreement with the above treatment plan. The patient is aware they should contact our office by phone for worsening of their current condition or the appearance of new urologic symptoms. Compliance is encouraged with any medications and followup testing that is ordered. It is a privilege to participate in the urologic care of your patient. If you have any questions or concerns regarding treatment for the above conditions, or other urologic issues, please do not hesitate to contact me. The office telephone contact is [phone]. This note is constructed using voice recognition software. While every effort has been made to ensure accuracy natural gas engineer errors may have been included. Yours sincerely, Dr Tommy Swartz MD, [facility] - Urology Providers of Expert, Compassionate Care for the Genitourinary System Coding Level of Care Code Est Pt Level 3 (34953) Diagnoses Nephrolithiasis N20.0 Erectile dysfunction due to arterial insufficiency N52.01 Nocturia more than twice per night R35.1 Hernia K46.9
== END 2023-09-14 08:50 | disposition home or self-care (01) ==
PROVIDERS: PCP Internal Medicine; Visit Provider Urology
DX: N20.0 Calculus of kidney (principal); N52.01 Erectile dysfunction due to arterial insufficiency; R35.1 Nocturia; K46.9 Unspecified abdominal hernia without obstruction or gangrene; Z13.9 Encounter for screening, unspecified
CPT/HCPCS: 99213

== ENCOUNTER → 2023-09-14 08:11 | Outpatient (BNVA) | payer MEDICARE, SELFPAY | PROVIDERS: PCP Internal Medicine; Visit Provider Urology | DX: N20.0 Calculus of kidney (principal); N52.01 Erectile dysfunction due to arterial insufficiency; R35.1 Nocturia; K46.9 Unspecified abdominal hernia without obstruction or gangrene | CPT/HCPCS: 81003; 99212 ==

== ENCOUNTER 2023-12-28 09:02 | Outpatient (AMB) | payer MEDICARE, SELFPAY ==
--- NOTE | 2023-12-28 09:08 | MHC.OFFVIS ---
Vital Signs 12/28/23 09:17 Height 6 ft 1 in Weight 165 lb 6 oz BMI 21.8 BP 124/74 Blood Pressure Location Lt brachial Position Sitting Pulse 57 Intake Visit Reasons: Abdominal hernia Intake Note: Patient is seen in office for evaluation of an abdominal hernia. Pt c/o: has a couple of hernia in both groin areas, feels the lump, reducible, denies n/v/d/c, no recent imaging CT: 09/04/21 (b/l hernias) Family Law Legal Assistant Required: No Accompanied by: Self / Same As Patient Allergies Penicillins Allergy (Mild, Verified 12/28/23 09:16) HIVES Medication List - Last Reconciled 12/28/23 by Luis Fernando Lam MD cholecalciferol (vitamin D3) (Vitamin D3) 25 mcg PO DAILY Echinacea purpurea extract 125 mg PO DAILY omega 3-glc-yuh-fish oil 1,200 (144-216) mg (Fish Oil) 1 cap PO DAILY omeprazole 20 mg PO DAILY vitamin E 268 mg PO DAILY HPI Comments Details: 68-year-old male patient presenting for evaluation of bilateral inguinal hernias. He feels the hernias gradually developed over the last several years and have now become quite noticeable. He denies any significant pain associated with the hernias and does feel the hernias reduce when laying down. He denies nausea, vomiting, fever or chills. He denies a previous history of hernia surgery. A CT abdomen and pelvis performed in 09/04/2021 for evaluation of kidney stones does reveal bilateral inguinal hernias with nonobstructed small bowel in the right inguinal hernia. He presents today to discuss repair of the bilateral inguinal hernias. [facility] Medical History (Updated 12/28/23 @ 09:29 by Luis Fernando Lam MD) Bilateral inguinal hernia Nephrolithiasis Elevated cholesterol GERD (gastroesophageal reflux disease) Surgical History H/O cystoscopy Hx of left knee surgery H/O colonoscopy History of uvulectomy History of esophagogastroduodenoscopy (EGD) Social History Patient Tobacco Use Status: Never used Tobacco service: No Review of Systems Const All systems reviewed & are unremarkable except as noted in HPI and below Denies chills, Denies fever(s), Denies headache(s), Denies poor appetite and Denies weakness ENT Denies headache(s) Card Denies chest pain, Denies irregular heart rhythm, Denies palpitations and Denies dyspnea Resp Denies cough, Denies excessive phlegm production and Denies dyspnea GI Denies abdominal pain, Denies bloating, Denies change in bowel habits, Denies constipation, Denies heartburn, Denies diarrhea, Denies nausea and Denies vomiting Denies difficulty urinating and Denies urinary frequency Musc Denies back pain, Denies muscle weakness and Denies numbness Skin/Breast Denies changing lesions and Denies unusual bruising Neuro Denies headache(s), Denies numbness, Denies paresthesias and Denies weakness Psych Denies anxiety and Denies depression Endo Denies palpitations Christiano/Lymph Denies lymphadenopathy Physical Exam Vital Signs: Last Vital Signs Pulse 57 12/28/23 09:17 BP 124/74 12/28/23 09:17 BMI result Body Mass Index 21.8 Const General: cooperative and no acute distress Nutritional Appearance: well nourished Orientation/consciousness: patient oriented x3 Limitations: no limitations HEENT Head: Yes normocephalic and Yes atraumatic Ears: hearing grossly normal bilaterally Resp Effort & Inspection: normal respiratory effort, no audible wheezes, no cough and no respiratory distress Cardio Jugular venous distension: no JVD GI Other: Examination in the standing position reveals bilateral inguinal hernias which increase with Valsalva maneuvers but easily reduce with light pressure. No tenderness is elicited with palpation. Genitalia are normal. Inspection: Yes normal to inspection Skin Other: Warm, dry, no rash Neuro General: patient oriented x3 Extrem General: Yes no clubbing, cyanosis or edema Assessment & Plan Assessment & Plan (1) Bilateral inguinal hernia: Code(s): K40.20 - Bilateral inguinal hernia, without obstruction or gangrene, not specified as recurrent Category: Medical Qualifiers: Obstruction and gangrene presence: without obstruction or gangrene Recurrence: non-recurrent Qualified Code(s): K40.20 - Bilateral inguinal hernia, without obstruction or gangrene, not specified as recurrent Plan 68-year-old male patient presenting with bilateral inguinal hernias. On examination he is easily reducible but fairly large bilateral inguinal hernias. We discussed elective repair of the bilateral inguinal hernias including the risks, alternatives and benefits. He wishes to proceed with the surgery and consents to repair of the bilateral inguinal hernias with mesh. This will be scheduled at his convenience possibly after the 1st of the year. Coding Level of Care Code New Pt Level 4 (63129) Diagnoses Non-recurrent bilateral inguinal hernia without obstruction or gangrene K40.20 Obstruction and gangrene presence: without obstruction or gangrene Recurrence: non-recurrent
[2023-12-28 09:17] VITALS: BP 124/74; PULSE 57; BMI 21.8
== END 2023-12-28 09:40 | disposition home or self-care (01) ==
LOC: HO.HGS 09:02
PROVIDERS: PCP Internal Medicine; Referring Provider Urology; Visit Provider Surgery
DX: K40.20 Bilateral inguinal hernia, without obstruction or gangrene, not specified as recurrent (principal)
CPT/HCPCS: 99204

== ENCOUNTER → 2023-12-28 09:02 | Outpatient (BNVA) | payer MEDICARE, SELFPAY | PROVIDERS: PCP Internal Medicine; Referring Provider Urology; Visit Provider Surgery | DX: K40.20 Bilateral inguinal hernia, without obstruction or gangrene, not specified as recurrent (principal) | CPT/HCPCS: 99202 ==

== ENCOUNTER 2024-03-03 15:32 | Outpatient (REF) | payer MEDICARE, SELFPAY ==
[2024-03-03 15:51] LABS: MANUAL DIFF FLAG NO
--- OUTSIDE RECORDS SUMMARY | 2024-03-03 16:35 | XMS_ITS ---
Author Organization [facility] Address [address] [place] [address] Care Team Providers Care Hide Washer Name Role Phone Eddie Reed MD Primary Care Provider Omid Ramachandran Jr REASON FOR VISIT pathology Encounters Encounter Location Date Provider Diagnosis [facility] [address] [place] [address] 05/24/2023 Omid Harvey Jr PLAN OF TREATMENT No Information
--- OUTSIDE RECORDS SUMMARY | 2024-03-03 16:35 | XMS_ITS ---
Author Organization [facility] Address [address] [place] [address] Care Team Providers Care Clinical Rehabilitation Aide Name Role Phone Eddie Reed MD Primary [...] 20 MG TAKE 1 CAPSULE BY MO [facility] EVERY DAY 1 HOUR BEFORE MEALS [...] unspecified whether esophagitis present (K21.9) Active confirmed 311618699 Problem Long-term current use of high risk medication other than anticoagulant (Z79.899) Active confirmed 389945614 VITAL SIGNS BMI 22.69 kg/m2 04/08/2023 Blood pressure systolic 00 mm Hg 04/08/19 24 Blood pressure diastolic 00 mm Hg 024 Height 6 ft 1 in in 04/08/2023 Temperature 98.6 degrees Fahrenheit 04/08/19 24 Weight 172 lbs 04/08/2023 Encounters Encounter Location Date Provider Diagnosis [facility] [address] [place] [address] 04/08/2023 Omid Harvey Jr Gastroesophageal reflux disease, [...] General Examination GENERAL APPEARANCE: in no ac [place] distress HEAD: normocephalic EYES: sclera non-icteric NECK/THYROID: no lymphadenopathy HEART: S1, S2 normal, no mu rmurs CHEST: normal shape and exp ansion LUNGS: clear to auscultatio n bilaterally ABDOMEN: soft, nontender, non distended, bowel sounds present, no organomegaly SKIN: anicteric EXTREMITIES: no clubbing, cyanosi s, or edema PSYCH: cognitive function i ntact ORAL CAVITY: mucosa moist
--- OUTSIDE RECORDS SUMMARY | 2024-03-03 16:35 | XMS_ITS ---
Author Organization [facility] Address [address] [place] [address] Care Team Providers Care Human Resources Compensation Analyst Name Role Phone Eddie Reed MD Primary Care Provider Omid Ramachandran Jr [phone] REASON FOR VISIT gerd PROBLEMS Problem Type ICD Code Onset Dates Problem Status W/U Status Risk SNOMED Code Notes Problem Long''s esophagus without dysplasia (K22.70) Active confirmed Long's esophagus (794877255) Problem Gastroesophageal reflux (K21.9) Active confirmed Esophageal reflux finding (643526587) Encounters Encounter Location Date Provider Diagnosis [facility] [place] Outpatient [address] [place] [id number] 05/18/2023 Omid Harvey Jr Long''s esophagus without dysplasia K22.70 ASSESSMENTS Encounter Date Diagnosis Assessment Notes Treatment Notes Treatment Clinical Notes 05/18/2023 Long''s esophagus without dysplasia (ICD-10 - K22.70) PLAN OF TREATMENT No Information
[2024-03-03 16:36] LABS: Basophils Absolute Auto 0.1 X10*3/uL (0.0-0.2); Basophils Percent Auto 0.5 % (0-2); Eosinophils Absolute Auto 0.3 X10*3/uL (0.0-0.4); Eosinophils Percent Auto 2.8 % (0-4); Hematocrit 42.5 % (42.0-52.0); Hemoglobin 14.6 g/dl (14.0-18.0); Imm Gran Abs Auto 0.02 X10*3/uL (0.00-0.03); Imm Gran Pct Auto 0.2 % (0.0-0.4); Lymphocytes Absolute Auto 3.1 X10*3/uL (1.2-4.9); Lymphocytes Percent Auto 32.1 % (20-40); Mean Corpuscular HGB Conc 34.4 g/dl (31.0-36.0); Mean Corpuscular Hemoglobin 31.7 pg (27.0-33.0); Mean Corpuscular Volume 92.2 fL (80.0-98.0); Mean Platelet Volume 10.4 fL (9.4-12.4); Monocytes Absolute Auto 0.6 X10*3/uL (0.1-1.2); Monocytes Percent Auto 6.1 % (2-11); Neutrophils Absolute Auto 5.5 x10*3/uL (2.0-8.3); Neutrophils Percent Auto 58.3 % (45-73); Platelet Count 226 X10*3/uL (160-400); Red Blood Count 4.61 X10*6/uL (4.60-5.80); Red Cell Distribution Width 12.8 % (11.0-16.0); White Blood Count 9.5 X10*3/uL (4.8-10.8)
--- OUTSIDE RECORDS SUMMARY | 2024-03-03 16:36 | XMS_ITS | Patient Health Record ---
Author Organization [facility] Address [address] [place] [address] Care Team Providers Care Purchasing Administrative Assistant Name Role Phone Eddie Reed MD Primary Care Provider Omid Ramachandran Jr Unavailable ALLERGIES Allergen (clinical drug ingredient) Drug/Non Drug Allergy documented on EMR Reaction Allergy Type Onset Date Status Penicillin Unknown Drug Allergy Active RESULTS Component Value Reference Range Notes Pathology Reviewed date:05/24/2023 08:21:33 AM Interpretation: Performing Lab:[facility], [address] [place] [phone] Notes/Report: REASON FOR REFERRAL No Information MEDICATIONS Medication SIG (Take, Route, Fr equency, Duration) Notes Start Date End Date Status Omeprazole 20 MG TAKE 1 CAPSULE BY [facility] EVERY DAY 1 HOUR BEFORE MEALS [...] unspecified whether esophagitis present (K21.9) Active confirmed [id number] Problem Long-term current use of high risk medication other than anticoagulant (Z79.899) Active confirmed 815022511 Problem Long''s esophagus without dysplasia (K22.70) Active confirmed Long's esophagus (346714812) Problem Gastroesophageal reflux (K21.9) Active confirmed Esophageal reflux finding (072033416) VITAL SIGNS Temperature 98.6 degrees Fahrenheit 04/08/2023 Blood pressure diastolic 00 mm Hg 04/08/2023 Height 6 ft 1 in in 04/08/2023 Blood pressure systolic 00 mm Hg 04/08/2023 Weight 172 lbs 04/08/2023 BMI 22.69 kg/m2 04/08/2023 Encounters Encounter Location Date Provider Diagnosis [facility] Outpatient [address] [place] [id number] 05/18/2023 Omid Harvey Jr Long''s esophagus without dysplasia K22.70 [facility] [address] [place] [phone] 04/08/2023 Omid Harvey Jr Gastroesophageal reflux disease, unspecified whether esophagitis present K21.9 and Long-term current use of high risk medication other than anticoagulant Z79.899 [facility] [address] [place] [phone] 05/24/2023 Omid Harvey Jr ASSESSMENTS Encounter Date [...] Coverage End Date MEDICARE OF [place] [address] [place] [address] [id number] RANDALL GÓMEZ Self - patient is the insured [employer] ATTN CLAIMS [address] [place] [address] [id number] RANDALL GÓMEZ Self - patient is the insured MEDICAL (GENERAL) HISTORY Medical History History ICD Code Nephrolithiasis Borderline elevated cholesterol Colonoscopy 08/09, normal, te n-year followup, negative stool DNA test when she 23, patient declines followup colonoscopy Gastroesophageal reflux disease Surgical History Surgery Date(Month/Year) knee surgery left Cystoscopy, stent placement, and stone e xtraction
[2024-03-03 17:09] LABS: Alanine Aminotransferase 20 U/L (0-40); Alkaline Phosphatase 76 U/L (39-117); Anion Gap 9 (12-20); Aspartate Amino Transferase 17 U/L (5-37); Bilirubin Total 0.7 mg/dL (0.0-1.0); Blood Urea Nitrogen 14 mg/dL (9-16); Calcium 8.8 mg/dL (8.4-10.2); Carbon Dioxide 29 mmol/L (22-29); Chloride 107 mmol/L (96-108); Estimated Glomerular Filt Rate > 60; Glucose Random 84 mg/dL (60-115); Potassium 3.6 mmol/L (3.3-5.1); Sodium 141 mmol/L (135-145)
--- NOTE | 2024-03-03 20:38 | HP_ITS ---
DATE OF SERVICE: 03/03/2024 HISTORY OF PRESENT ILLNESS: The patient is a 68-year-old male whom seen today for preop evaluation prior to bilateral hernia repair, scheduled for next week. PAST MEDICAL HISTORY: Significant for kidney stones, gastroesophageal reflux disease. BPH, elevated lipids, Factor 5 Leiden. ALLERGIES: HE LISTS AN ALLERGY TO PENICILLIN. PRESENT MEDICATIONS: Prilosec 20 mg a day, vitamin D and B12. FAMILY HISTORY: Mother at 74. Father 90. Sister from asthma. He has 2 brothers. SOCIAL HISTORY: He is , retired, and has 2 children, one has had problem with clots. He has never had a blood clot himself. REVIEW OF SYSTEMS: Weight is the same. No fevers, chills, or sweats. No headaches or dizziness. No palpitations or chest pains. No edema. No respiratory complaints. No abdominal pain or heartburn. No dysuria. Nocturia x1. No joint complaints. No confusion. No memory loss. Sleep and appetite are normal. He does get seasonal allergies: No skin rashes. No bleeding problems. PHYSICAL EXAMINATION: GENERAL: He is awake and alert, in no distress. VITAL SIGNS: Temperature 98.4, pulse 87, respiratory rate 12, blood pressure 110/68, O2 saturation 97% on room air. Weight 168, height 6 feet 1 inch. HEENT: Clear. NECK: Supple. No lymph nodes, bruits or masses. HEART: Sounds S1 and S2. Regular rate. LUNGS: Clear. ABDOMEN: Soft, nontender. Positive bowel sounds. EXTREMITIES: No clubbing, cyanosis, or edema. 1+ pulses. He does not smoke. No bruising. Appropriate affect. Alert and oriented x3. LABORATORY DATA: He had a cardiogram done today. Had sinus rhythm, no ischemic changes, incomplete right bundle. He has CBC and chemistry profile drawn this afternoon which would be available to the lab. ASSESSMENT AND PLAN: 1. Preop hernia surgery, medically stable for proposed procedure. 2. Gastroesophageal reflux disease, on Prilosec. 3. History of kidney stones, stable. 4. Factor 5 Leiden by history. MD MALINA Szymanski/PHILL / [id number]
== END 2024-03-03 15:33 | disposition home or self-care (01) ==
LOC: HO.LAB 15:32
PROVIDERS: PCP Internal Medicine; Visit Provider Internal Medicine
DX: Z01.818 Encounter for other preprocedural examination (principal)
CPT/HCPCS: 36415; 80053; 85025

== ENCOUNTER 2024-03-06 05:36 | Day surgery (SDC) | payer MEDICARE, SELFPAY ==
--- OUTSIDE RECORDS SUMMARY | 2024-02-17 13:30 | XMS_ITS ---
Author Organization [facility] Address [address] [place] [address] Care Team Providers Care Fox Raiser Name Role Phone Eddie Reed MD Primary Care Provider Omid Ramachandran Jr REASON FOR VISIT pathology Encounters Encounter Location Date Provider Diagnosis [facility] [address] [place] [address] 05/24/2023 Omid Harvey Jr PLAN OF TREATMENT No Information
--- OUTSIDE RECORDS SUMMARY | 2024-02-17 13:30 | XMS_ITS | Patient Health Record ---
Author Organization [facility] Address [address] [place] [address] Care Team Providers Care Central Office Equipment Engineer Name Role Phone Eddie Reed MD Primary Care Provider Omid Ramachandran Jr Unavailable [phone] ALLERGIES Allergen (clinical drug ingredient) Drug/Non Drug Allergy documented on EMR Reaction Allergy Type Onset Date Status Penicillin Unknown Drug Allergy Active RESULTS Component Value Reference Range Notes Pathology Reviewed date:05/24/2023 08:21:33 AM Interpretation: Performing Lab:[facility], [address] [place] [id number] Notes/Report: REASON FOR REFERRAL No Information MEDICATIONS Medication SIG (Take, Route, Fr equency, Duration) Notes Start Date End Date Status Omeprazole 20 MG TAKE 1 CAPSULE BY MO [facility] EVERY DAY 1 HOUR BEFORE MEALS Oral for 90 Ac tive Echinacea Active Fish Oil Active Vitamin E Active Vitamin D Active SOCIAL HISTORY Tobacco Use: Social History Observation Description Date Details (start date - stop date) Never Smoker NA - NA Sex Assigned At : Social History Observation Description Sex Assigned At Unknown Tobacco Use/Smoking Question Answer Notes Patient is a nonsmoker Alcohol Screen Question Answer Notes Did you have a drink contain ing alcohol in the past year? Yes How often did you have a dri nk containing alcohol in the past year? 4 or more times a week (4 points) How many drinks did you have on a typical day when you were drinking in the past year? 1 or 2 drinks (0 point) How often did you have 6 or more drinks on one occasion in the past year? Never (0 point) Points 4 Interpretation Positive PROBLEMS Problem Type ICD Code Onset Dates Problem Status W/U Status Risk SNOMED Code Notes Problem Gastroesophageal reflux disease, unspecified whether esophagitis present (K21.9) Active confirmed 707044665 Problem Long-term current use of high risk medication other than anticoagulant (Z79.899) Active confirmed 690239206 Problem Long''s esophagus without dysplasia (K22.70) Active confirmed Long's esophagus (615326972) Problem Gastroesophageal reflux (K21.9) Active confirmed Esophageal reflux finding (067643936) VITAL SIGNS Temperature 98.6 degrees Fahrenheit 04/08/2023 Blood pressure diastolic 00 mm Hg 04/08/2023 Height 6 ft 1 in in 04/08/2023 Blood pressure systolic 00 mm Hg 04/08/2023 Weight 172 lbs 04/08/2023 BMI 22.69 kg/m2 04/08/2023 Encounters Encounter Location Date Provider Diagnosis [facility] Outpatient [address] [place] [id number] 05/18/2023 Omid Harvey Jr Long''s esophagus without dysplasia K22.70 [facility] [address] [place] [phone] 04/08/2023 Omid Harvey Jr Gastroesophageal reflux disease, unspecified whether esophagitis present K21.9 and Long-term current use of high risk medication other than anticoagulant Z79.899 [facility] [address] [place] [phone] 02/17/2023 Omid Harvey Jr [facility] [address] [place] [phone] 05/24/2023 Omid Harvey Jr ASSESSMENTS Encounter Date Diagnosis Assessment Notes Treatment Notes Treatment Clinical Notes 05/18/2023 Long''s esophagus without dysplasia (ICD-10 - K22.70) 04/08/2023 Long-term current us e of high risk medication other than anticoagulant (ICD-10 - Z79.899) 04/08/2023 Gastroesophageal ref lux disease, unspecified whether esophagitis present (ICD-10 - K21.9) Endoscopy material was printed PLAN OF TREATMENT Future Test Test Name Order Date UPPER GI ENDOSCOPY 04/08/2023 Insurance Providers Payer Name Payer Address Payer Phone Subscriber Number Group Number Insured Name Patient Relationship to Insured Coverage Start Date Coverage End Date MEDICARE OF [place] [address] [place] [address] [phone] [id number] RANDALL GÓMEZ Self - patient is the insured [employer] ATTN CLAIMS [address] [place] [address] [phone] [id number] RANDALL GÓMEZ Self - patient is the insured MEDICAL (GENERAL) HISTORY Medical History History ICD Code Nephrolithiasis Borderline elevated cholesterol Colonoscopy 08/09, normal, te n-year followup, negative stool DNA test when she 23, patient declines followup colonoscopy Gastroesophageal reflux disease Surgical History Surgery Date(Month/Year) knee surgery left Cystoscopy, stent placement, and stone e xtraction
--- OUTSIDE RECORDS SUMMARY | 2024-02-17 13:30 | XMS_ITS ---
Author Organization [facility] Address [address] [place] [address] Care Team Providers Care Marine Design Engineer Name Role Phone Eddie Reed MD Primary Care Provider Omid Ramachandran Jr Unavailable ALLERGIES Allergen (clinical drug ingredient) Drug/Non Drug Allergy documented on EMR Reaction Allergy Type Onset Date Status Penicillin Unknown Drug Allergy Active REASON FOR VISIT Patient presents today for consultation MEDICATIONS Medication SIG (Take, Route, Fr equency, Duration) Notes Start Date End Date Status Omeprazole 20 MG TAKE 1 CAPSULE BY [facility] EVERY DAY 1 HOUR BEFORE MEALS Oral [...] unspecified whether esophagitis present (K21.9) Active confirmed 744027415 Problem Long-term current use of high risk medication other than anticoagulant (Z79.899) Active confirmed 085872358 VITAL SIGNS BMI 22.69 kg/m2 04/08/2023 Blood pressure systolic 00 mm Hg 04/08/19 24 Blood pressure diastolic 00 mm Hg 024 Height 6 ft 1 in in 04/08/2023 Temperature 98.6 degrees Fahrenheit 04/08/19 24 Weight 172 lbs 04/08/2023 Encounters Encounter Location Date Provider Diagnosis [facility] [address] [place] [address] 04/08/2023 Omid Harvey Jr Gastroesophageal reflux disease, unspecified whether esophagitis present K21.9 and Long-term current use of high risk medication other than anticoagulant Z79.899 ASSESSMENTS Encounter Date Diagnosis Assessment Notes Treatment Notes Treatment Clinical Notes 04/08/2023 Gastroesophageal ref lux disease, unspecified whether esophagitis present (ICD-10 - K21.9) Endoscopy material was printed 04/08/2023 Long-term current us e of high risk medication other than anticoagulant (ICD-10 - Z79.899) PLAN OF TREATMENT Treatment Notes Assessment Notes Gastroesophageal reflux dise ase, unspecified whether esophagitis present Endoscopy material was printed Future Test Test Name Order Date UPPER GI ENDOSCOPY 04/08/2023 Next Appt Details Follow Up: 1 Year, Reason: Progress Notes * Examination Category Sub-Category Detail Notes General Examination GENERAL APPEARANCE: in no ac [place] distress HEAD: normocephalic EYES: sclera non-icteric NECK/THYROID: no lymphadenopathy HEART: S1, S2 normal, no mu rmurs CHEST: normal shape and exp ansion LUNGS: clear to auscultatio n bilaterally ABDOMEN: soft, nontender, non distended, bowel sounds present, no organomegaly SKIN: anicteric EXTREMITIES: no clubbing, cyanosi s, or edema PSYCH: cognitive function i ntact ORAL CAVITY: mucosa moist
--- OUTSIDE RECORDS SUMMARY | 2024-02-17 13:30 | XMS_ITS ---
Author Organization [facility] Address [address] [place] [address] Care Team Providers Care Welt Rander Name Role Phone Eddie Reed MD Primary Care Provider Omid Ramachandran Jr REASON FOR VISIT gerd PROBLEMS Problem Type ICD Code Onset Dates Problem Status W/U Status Risk SNOMED Code Notes Problem Long''s esophagus without dysplasia (K22.70) Active confirmed Long's esophagus (822543220) Problem Gastroesophageal reflux (K21.9) Active confirmed Esophageal reflux finding (459121901) Encounters Encounter Location Date Provider Diagnosis [facility] Outpatient [address] [place] [phone] 05/18/2023 Omid Harvey Jr Long''s esophagus without dysplasia K22.70 ASSESSMENTS Encounter Date Diagnosis Assessment Notes Treatment Notes Treatment Clinical Notes 05/18/2023 Long''s esophagus without dysplasia (ICD-10 - K22.70) PLAN OF TREATMENT No Information
[2024-03-02 11:04] VITALS: BMI 21.8
--- NOTE | 2024-03-02 12:09 | HO.ANESPROP2 ---
Documented by User: Michelle Boggs NP 03/02/24 12:10 HPI - Anesthesia Eval Consult details Narrative: 68yo M for Bilateral Repair Hernia Inguinal Reducible with mesh PMFSH Active Problems Active Problems: All Active Problems Hernia (Acute) Erectile dysfunction due to arterial insufficiency (Acute) Bladder outlet obstruction (Acute) Nocturia more than twice per night (Acute) Hydronephrosis with obstructing calculus (Acute) Bilateral inguinal hernia (Acute) Nephrolithiasis (Acute) Past Medical History Medical History Bilateral inguinal hernia Nephrolithiasis Elevated cholesterol GERD (gastroesophageal reflux disease) Family History Family history of problems with anesthesia: No Surgical History Surgical History H/O cystoscopy Hx of left knee surgery H/O colonoscopy History of uvulectomy History of esophagogastroduodenoscopy (EGD) History of Problems with Anesthesia: No Social History Social History Are you a primary critical care nurse specialist to a significant other at home: No Do you presently have visiting nurse or other home services: No Patient Tobacco Use Status: Never used Tobacco Have you been hit, kicked, punched, or otherwise hurt by someone within the past year? If so, by whom?: No Are you DNR?: No Advance Directives: No Advance Directives Information Provided: Yes Recently lost weight without trying: No Nutrition Risks: No Nutritional Risk service: No Meds Allergies Allergy/AdvReac Type Severity Reaction Status Date / Time Penicillins Allergy Mild HIVES Verified 03/06/24 06:19 Home Medications ?Medication ?Instructions ?Recorded ?Confirmed ?Last Taken ?Type Echinacea purpurea extract 125 mg 125 mg PO DAILY 07/03/22 03/02/24 05/11/23 History tablet omeprazole 20 mg tablet,delayed 20 mg PO DAILY 07/03/22 03/02/24 Unknown History release cholecalciferol (vitamin D3) 25 25 mcg PO DAILY 05/14/23 03/02/24 05/11/23 History mcg (1,000 unit) capsule (Vitamin D3) omega 1-way-abl-fish oil 1,200 mg 1 cap PO DAILY 05/14/23 03/02/24 03/01/24 History (144 mg-216 mg) capsule (Fish Oil) vitamin E 268 mg (400 unit) capsule 268 mg PO DAILY 05/14/23 03/02/24 05/11/23 History Exam Height,Weight and Vital Signs: Height 6 ft 1 in Weight 74.843 kg Assessment and Plan Assessment Anesthesia Assessment: Chart Reviewed Final Anesthetic Review Family History of Problems with Anesthesia: No History of Problems with Anesthesia: No Documented by User: Issa Wheat MD 03/06/24 07:13 [facility] Past Medical History Medical History Bilateral inguinal hernia Nephrolithiasis Elevated cholesterol GERD (gastroesophageal reflux disease) Surgical History Surgical History H/O cystoscopy Hx of left knee surgery H/O colonoscopy History of uvulectomy History of esophagogastroduodenoscopy (EGD) Social History Social History Are you a primary critical care nurse specialist to a significant other at home: No Do you presently have visiting nurse or other home services: No Patient Tobacco Use Status: Never used Tobacco Have you been hit, kicked, punched, or otherwise hurt by someone within the past year? If so, by whom?: No Are you DNR?: No Advance Directives: No Advance Directives Information Provided: Yes Recently lost weight without trying: No Nutrition Risks: No Nutritional Risk service: No Meds Allergies Allergy/AdvReac Type Severity Reaction Status Date / Time Penicillins Allergy Mild HIVES Verified 03/06/24 06:19 Home Medications ?Medication ?Instructions ?Recorded ?Confirmed ?Last Taken ?Type Echinacea purpurea extract 125 mg 125 mg PO DAILY 07/03/22 03/02/24 05/11/23 History tablet omeprazole 20 mg tablet,delayed 20 mg PO DAILY 07/03/22 03/02/24 Unknown History release cholecalciferol (vitamin D3) 25 25 mcg PO DAILY 05/14/23 03/02/24 05/11/23 History mcg (1,000 unit) capsule (Vitamin D3) omega 5-klf-gus-fish oil 1,200 mg 1 cap PO DAILY 05/14/23 03/02/24 03/01/24 History (144 mg-216 mg) capsule (Fish Oil) vitamin E 268 mg (400 unit) capsule 268 mg PO DAILY 05/14/23 03/02/24 05/11/23 History Exam Airway Mallampati Class: II TM Dist: >3cm Neck ROM: Full Assessment and Plan Assessment Anesthesia Assessment: Anesthesia Plan Discussed Final Anesthetic Review NPO: Yes ASA Class: II Final Preanesthetic Review: No Changes in Pt Med Stat, Meds/Allgs Chart Reviewed, Consent Obtained/Reviewed, Anes Risks/Benef Reviewed and DNR Form (If Appl.) Patient Risk: Low Procedure Risk: Low Anesthetic Plan Anesthetic Plan: GA Disposition: Standard PACU
--- OUTSIDE RECORDS SUMMARY | 2024-03-06 05:39 | XMS_ITS ---
Author Organization [facility] Address [address] [place] [address] Care Team Providers Care Houseperson Name Role Phone Eddie Reed MD Primary Care Provider Omid Ramachandran Jr [phone] REASON FOR VISIT pathology Encounters Encounter Location Date Provider Diagnosis [facility] [address] [place] [address] 05/24/2023 Omid Harvey Jr PLAN OF TREATMENT No Information
--- OUTSIDE RECORDS SUMMARY | 2024-03-06 05:40 | XMS_ITS ---
Author Organization [facility] Address [address] [place] [address] Care Team Providers Care Medical Insurance Claims Processor Name Role Phone Eddie Reed MD Primary Care Provider Omid Ramachandran Jr REASON FOR VISIT gerd PROBLEMS Problem Type ICD Code Onset Dates Problem Status W/U Status Risk SNOMED Code Notes Problem Long''s esophagus without dysplasia (K22.70) Active confirmed Long's esophagus (907331879) Problem Gastroesophageal reflux (K21.9) Active confirmed Esophageal reflux finding (244958772) Encounters Encounter Location Date Provider Diagnosis [facility] Outpatient [address] [place] [id number] 05/18/2023 Omid Harvey Jr Long''s esophagus without dysplasia K22.70 ASSESSMENTS Encounter Date Diagnosis Assessment Notes Treatment Notes Treatment Clinical Notes 05/18/2023 Long''s esophagus without dysplasia (ICD-10 - K22.70) PLAN OF TREATMENT No Information
--- OUTSIDE RECORDS SUMMARY | 2024-03-06 05:40 | XMS_ITS | Patient Health Record ---
Author Organization [facility] Address [address] [place] [address] Care Team Providers Care Zinc Skimmer Name Role Phone Eddie Reed MD Primary Care Provider Omid Ramachandran Jr Unavailable ALLERGIES Allergen (clinical drug ingredient) Drug/Non Drug Allergy documented on EMR Reaction Allergy Type Onset Date Status Penicillin Unknown Drug Allergy Active RESULTS Component Value Reference Range Notes Pathology Reviewed date:05/24/2023 08:21:33 AM Interpretation: Performing Lab:[facility], [address] [place] [phone] Notes/Report: REASON FOR REFERRAL No Information MEDICATIONS Medication SIG (Take, Route, Fr equency, Duration) Notes Start Date End Date Status Omeprazole 20 MG TAKE 1 CAPSULE BY MO [facility] EVERY DAY 1 HOUR BEFORE MEALS Oral [...] unspecified whether esophagitis present (K21.9) Active confirmed 807675303 Problem Long-term current use of high risk medication other than anticoagulant (Z79.899) Active confirmed 049947664 Problem Long''s esophagus without dysplasia (K22.70) Active confirmed Long's esophagus (078371377) Problem Gastroesophageal reflux (K21.9) Active confirmed Esophageal reflux finding (483229265) VITAL SIGNS Temperature 98.6 degrees Fahrenheit 04/08/2023 Blood pressure diastolic 00 mm Hg 04/08/2023 Height 6 ft 1 in in 04/08/2023 Blood pressure systolic 00 mm Hg 04/08/2023 Weight 172 lbs 04/08/2023 BMI 22.69 kg/m2 04/08/2023 Encounters Encounter Location Date Provider Diagnosis [facility] [place] [address] [place] [id number] 05/18/2023 Omid Harvey Jr Long''s esophagus without dysplasia K22.70 [facility] [address] [place] [phone] 04/08/2023 Omid Harvey Jr Gastroesophageal reflux disease, unspecified whether esophagitis present K21.9 and Long-term current use of high risk medication other than anticoagulant Z79.899 [facility] [address] [place] [phone] 05/24/2023 Omid Harvey Jr ASSESSMENTS Encounter Date [...] [place] [address] [place] [address] [id number] RANDALL GÓMEZ Self - patient is the insured [employer] ATTN CLAIMS [address] [place] [address] [id number] RANDALL GÓMEZ Self - patient is the insured MEDICAL (GENERAL) HISTORY Medical History History ICD Code Nephrolithiasis Borderline elevated cholesterol Colonoscopy 08/09, normal, te n-year followup, negative stool DNA test when she 23, patient declines followup colonoscopy Gastroesophageal reflux disease Surgical History Surgery Date(Month/Year) knee surgery left Cystoscopy, stent placement, and stone e xtraction
--- OUTSIDE RECORDS SUMMARY | 2024-03-06 05:40 | XMS_ITS ---
Author Organization [facility] Address [address] [place] [address] Care Team Providers Care Applications Development Analyst Name Role Phone Eddie Reed MD [...] unspecified whether esophagitis present (K21.9) Active confirmed 009714759 Problem Long-term current use of high risk medication other than anticoagulant (Z79.899) Active confirmed 963356007 VITAL SIGNS BMI 22.69 kg/m2 04/08/2023 Blood pressure systolic 00 mm Hg 04/08/19 24 Blood pressure diastolic 00 mm Hg 024 Height 6 ft 1 in in 04/08/2023 Temperature 98.6 degrees Fahrenheit 04/08/19 24 Weight 172 lbs 04/08/2023 Encounters Encounter Location Date Provider Diagnosis [facility] [address] [place] [address] 04/08/2023 Omid Harvey Jr Gastroesophageal reflux disease, [...] General Examination GENERAL APPEARANCE: in no ac [place] distress HEAD: normocephalic EYES: sclera non-icteric NECK/THYROID: no lymphadenopathy HEART: S1, S2 normal, no mu rmurs CHEST: normal shape and exp ansion LUNGS: clear to auscultatio n bilaterally ABDOMEN: soft, nontender, non distended, bowel sounds present, no organomegaly SKIN: anicteric EXTREMITIES: no clubbing, cyanosi s, or edema PSYCH: cognitive function i ntact ORAL CAVITY: mucosa moist
[2024-03-06 06:17] VITALS: BMI 21.4
[2024-03-06] MEDS: Lactated Ringers 1,000 ML 100 ML IVCONT (06:25)
[2024-03-06 06:31] VITALS: BP 132/78; PULSE 73; RESP 18; TEMP 36.7; O2SAT 99
[2024-03-06] MEDS: vancomycin HCL 1,000 MG in 0.9 % Sodium Chloride 250 ML 270 MG IV (07:01)
--- NOTE | 2024-03-06 07:16 | MHC.SHP ---
Pre-Procedural Eval Section A - 24 Hr Update-Section A only Date of Service: 03/06/24 The patient is an INPATIENT: No Changes since office visit: Yes Patient answered all questions; No Cold of Flu in the past 2 weeks, No New Medical Problems and No Changes in Medication The patient has been examined within 24 hours of the surgical procedure. The History & Physical has been completed within 30 days and I have reviewed it.: No Section B - Complete if H&P > 30 days Chief Complaint: Bilateral inguinal hernia, without obstruction Details of Present Illness: No changes since his prior office visit. Patient denies any ongoing hernias symptoms Relevant Family History (Specify if Yes): No Relevant Social History: None Present Medications: see Short Stay Collaborative assessment Medical History: No relevant PMH History of Previous Operations: No relevant previous surgery Allergies: Allergies Allergy/AdvReac Type Severity Reaction Status Date / Time Penicillins Allergy Mild HIVES Verified 03/06/24 06:19 Review of Systems Sugical H&P ROS: Negative: Constitution, Cardiovascular, Respiratory, Gastrointestinal and Genitourinary Exam Surgical H&P Exam: Normal: Heart, Normal: Lungs, Normal: Extremities, Normal: Abdomen and Normal: Skin Plan Diagnosis/Plan: Unchanged I have reviewed the history and physical and performed a pertinent physical examination on my patient. No changes have occurred unless specified. Time Spent With Patient Time: Total time managing care of this patient today ____ minutes.
--- NOTE | 2024-03-06 08:42 | P.OP_ITS ---
Operative Note Operative Note Date of Service: 03/06/24 Narrative: Preoperative diagnosis: Bilateral inguinal hernias, reducible Postoperative diagnosis: Same Procedure: Repair of bilateral inguinal hernias with mesh Surgeon: Luis Fernando Lam MD Die Try Out Worker Stamping: Tonya Sim PA-C Anesthesia: General LMA Indications for procedure: 68-year-old male patient presenting with a palpable lump in bilateral groins which increase in size with lifting and decrease with light pressure. On examination the patient has bilateral inguinal hernias which reduce with light pressure increase with Valsalva maneuvers. Operative findings: Bilateral direct inguinal hernias Specimen: None Estimated blood loss: 2 mL Complications: None Procedure details: Patient was brought to the OR and placed in a supine position. After administering general anesthesia the patient's abdomen was prepped with ChloraPrep and draped in a sterile fashion. A surgical time-out was called the consent confirmed. Patient received preoperative antibiotics and Venodyne boots were in place. Local anesthesia consisting of 0.5% Sensorcaine was infiltrated over the left inguinal ligament. An incision was then made over the left inguinal ligament with a scalpel and carried out through subcutaneous tissue, past Zabrina's fashion up to the external oblique aponeurosis. Additional local was infiltrated below the aponeurosis. This was then incised with a scalpel and widened with the Metzenbaum scissors. The spermatic cord was then dissected free from the surrounding inguinal canal and retracted using a [place] drain. A moderate size direct inguinal hernia was identified. Fibers of the cremaster muscle were and no indirect hernia could be identified. Attention was then directed to the fibers of the internal oblique and transversalis aponeurosis which were incised with electrocautery between Allis clamps. A preperitoneal space was then created using an open Ray-Sophie sponge. A large PHS mesh was then obtained. The circular underlay was deployed within the preperitoneal space. The overlay was then secured to the pubic tubercle, conjoined tendon, and shelving edge of the inguinal ligament using 0 Polysorb sutures. A slit was made in the mesh in the mesh wrapped around the spermatic cord and secured to the shelving edge using a 0 Polysorb suture. The wrap was tight enough to allow only the tip of the index finger to pass. The remainder of the mesh was then passed laterally below the external oblique aponeurosis. Wounds were then irrigated with saline solution and suctioned dry. The external oblique aponeurosis was then closed using a running 2-0 Polysorb s uture. A wet sponge was then applied to the incision and then attention directed to the right groin. Local anesthesia consisting of 0.5% Sensorcaine was infiltrated over the right inguinal ligament. An incision was then made over the right inguinal ligament with a scalpel and carried out through subcutaneous tissue, past Zabrina's fashion up to the external oblique aponeurosis. Additional local was infiltrated below the aponeurosis. This was then incised with a scalpel and widened with the Metzenbaum scissors. The spermatic cord was then dissected free from the surrounding inguinal canal and retracted using a Sebastián drain. A moderate size direct inguinal hernia was identified. Fibers of the cremaster muscle were and no indirect hernia could be identified. Attention was then directed to the fibers of the internal oblique and transversalis aponeurosis which were incised with electrocautery between Allis clamps. A preperitoneal space was then created using an open Ray-Sophie sponge. A large PHS mesh was then obtained. The circular underlay was deployed within the preperitoneal space. The overlay was then secured to the pubic tubercle, conjoined tendon, and shelving edge of the inguinal ligament using 0 Polysorb sutures. A slit was made in the mesh in the mesh wrapped around the spermatic cord and secured to the shelving edge using a 0 Polysorb suture. The wrap was tight enough to allow only the tip of the index finger to pass. The remainder of the mesh was then passed laterally below the external oblique aponeurosis. Wounds were then irrigated with saline solution and suctioned dry. The external oblique aponeurosis was then closed using a running 2-0 Polysorb suture. 4 mL of Zenrelef was then instilled below both external oblique aponeurosis for postoperative pain relief. Both incisions were then closed simultaneously with 3-0 Polysorb sutures to close Zabrina's fascia and dermis. Skin was closed using a running subcuticular 4-0 Polysorb suture. Sterile dressings consisting of Steri-Strips, 2 x 2 gauze and Tegaderm were then applied. The patient tolerated the procedure well. Sponge, instrument, and needle counts were reported as correct. The patient was transferred to PACU in stable condition.
[2024-03-06 08:53] VITALS: BP 118/68; PULSE 65; RESP 15; TEMP 36.2; O2SAT 99
[2024-03-06 08:58] VITALS: BP 116/67; PULSE 69; RESP 12; O2SAT 100
[2024-03-06 09:03] VITALS: BP 124/75; PULSE 72; RESP 16; O2SAT 97
[2024-03-06 09:08] VITALS: BP 119/67; PULSE 72; RESP 16; O2SAT 97
[2024-03-06 09:23] VITALS: BP 118/67; PULSE 74; RESP 16; TEMP 36.1; O2SAT 98
== END 2024-03-06 09:49 | disposition home or self-care (01) ==
PROVIDERS: PCP Internal Medicine; Visit Provider Surgery
PROC: (CPT 49505; principal; 2024-03-06 07:30)
DX: K40.20 Bilateral inguinal hernia, without obstruction or gangrene, not specified as recurrent (principal); K21.9 Gastro-esophageal reflux disease without esophagitis; E78.00 Pure hypercholesterolemia, unspecified; N20.0 Calculus of kidney; Z79.899 Other long term (current) drug therapy; Z88.0 Allergy status to penicillin; Z98.890 Other specified postprocedural states
CPT/HCPCS: 49505; C1781; C9088; J0131; J0171; J1100; J2003; J2250; J2405; J2704; J2795; J3010; J3370

== ENCOUNTER → 2024-03-06 05:36 | Outpatient (BNV) | payer MEDICARE, SELFPAY | PROVIDERS: PCP Internal Medicine; Visit Provider Surgery | DX: K40.20 Bilateral inguinal hernia, without obstruction or gangrene, not specified as recurrent (principal) | CPT/HCPCS: 49505 ==

== ENCOUNTER 2024-03-14 14:15 | Outpatient (AMB) | payer MEDICARE, SELFPAY ==
--- NOTE | 2024-03-14 14:18 | A.OFFVIS_ITS ---
Vital Signs 03/14/24 14:22 Height 6 ft 1 in Weight 169 lb 5.04 oz BMI 22.3 Respiration 16 Pulse 72 Intake Visit Reasons: s/p bilateral inguinal hernias Intake Note: Patient is seen in office for post op assessment post bilateral inguinal hernias. Pt c/o: no concerns, healing as expected Track Repair Laborer Required: No Accompanied by: Self / Same As Patient Allergies Penicillins Allergy (Mild, Verified 03/14/24 14:22) HIVES HPI Comments Details: Patient returns 1 week following repair of bilateral inguinal hernias on 03/06/2024. He reports sharp pain for the 1st 3 days but now is feeling much improved. He is mostly pain-free and denies any problems with his incisions. [facility] Medical History Bilateral inguinal hernia Nephrolithiasis Elevated cholesterol GERD (gastroesophageal reflux disease) Surgical History H/O cystoscopy Hx of left knee surgery H/O colonoscopy History of uvulectomy History of esophagogastroduodenoscopy (EGD) Social History Are you a primary adult caregiver to a significant other at home: No Do you presently have visiting nurse or other home services: No Patient Tobacco Use Status: Never used Tobacco service: No Physical Exam Vital Signs: Last Vital Signs Pulse 72 03/14/24 14:22 Resp 16 03/14/24 14:22 BMI result Body Mass Index 22.3 Const General: comfortable Nutritional Appearance: well nourished Orientation/consciousness: patient oriented x3 Resp Effort & Inspection: normal respiratory effort GI Other: Bilateral inguinal incisions are clean, dry, and intact without redness or discharge. No hernias noted with Valsalva maneuvers. Skin Other: Warm, dry, no rash Neuro General: patient oriented x3 Assessment & Plan Assessment & Plan (1) Bilateral inguinal hernia: Code(s): K40.20 - Bilateral inguinal hernia, without obstruction or gangrene, not specified as recurrent Category: Medical Qualifiers: Obstruction and gangrene presence: without obstruction or gangrene Recurrence: non-recurrent Qualified Code(s): K40.20 - Bilateral inguinal hernia, without obstruction or gangrene, not specified as recurrent Plan 68-year-old male patient presenting with bilateral inguinal hernias status post repair on 03/06/2024. He tolerated the procedure well and his wounds are healing nicely. Should continue to avoid lifting greater than 10 lb for the next 4 weeks. He will return at that time for follow-up examination. Coding Level of Care Code Global (34329) Diagnoses Non-recurrent bilateral inguinal hernia without obstruction or gangrene K40.20 Obstruction and gangrene presence: without obstruction or gangrene Recurrence: non-recurrent
[2024-03-14 14:22] VITALS: PULSE 72; RESP 16; BMI 22.3
--- OUTSIDE RECORDS SUMMARY | 2024-03-14 16:45 | XMS_ITS ---
Author Organization [facility] Address [address] [place] [address] Care Team Providers Care Wheel Loader Operator Name Role Phone Eddie Reed MD Primary Care Provider Omid Ramachandran Jr REASON FOR VISIT pathology Encounters Encounter Location Date Provider Diagnosis [facility] [address] [place] [address] 05/24/2023 Omid Harvey Jr PLAN OF TREATMENT No Information
--- OUTSIDE RECORDS SUMMARY | 2024-03-14 16:45 | XMS_ITS ---
Author Organization [facility] Address [address] [place] [address] Care Team Providers Care [employer] Vice Principal Name Role Phone Eddie Reed MD Primary Care Provider Omid Ramachandran Jr [phone] REASON FOR VISIT gerd PROBLEMS Problem Type ICD Code Onset Dates Problem Status W/U Status Risk SNOMED Code Notes Problem Long''s esophagus without dysplasia (K22.70) Active confirmed Long's esophagus (603901799) Problem Gastroesophageal reflux (K21.9) Active confirmed Esophageal reflux finding (763736953) Encounters Encounter Location Date Provider Diagnosis [facility] [place] [address] [place] [id number] 05/18/2023 Omid Harvey Jr Long''s esophagus without dysplasia K22.70 ASSESSMENTS Encounter Date Diagnosis Assessment Notes Treatment Notes Treatment Clinical Notes 05/18/2023 Long''s esophagus without dysplasia (ICD-10 - K22.70) PLAN OF TREATMENT No Information
--- OUTSIDE RECORDS SUMMARY | 2024-03-14 16:45 | XMS_ITS ---
Author Organization [facility] Address [address] [place] [address] Care Team Providers Care Barrel Centerer Name Role Phone Eddie Reed MD Primary [...] 20 MG TAKE 1 CAPSULE BY [facility] EVERY DAY 1 HOUR BEFORE MEALS Oral [...] unspecified whether esophagitis present (K21.9) Active confirmed [id number] Problem Long-term current use of high risk medication other than anticoagulant (Z79.899) Active confirmed 541236320 VITAL SIGNS BMI 22.69 kg/m2 04/08/2023 Blood pressure systolic 00 mm Hg 04/08/19 24 Blood pressure diastolic 00 mm Hg 024 Height 6 ft 1 in in 04/08/2023 Temperature 98.6 degrees Fahrenheit 04/08/19 24 Weight 172 lbs 04/08/2023 Encounters Encounter Location Date Provider Diagnosis [facility] [address] [place] [address] 04/08/2023 Omid Harvye Jr Gastroesophageal reflux disease, unspecified whether esophagitis [...] General Examination GENERAL APPEARANCE: in no ac la posta distress HEAD: normocephalic EYES: sclera non-icteric NECK/THYROID: no lymphadenopathy HEART: S1, S2 normal, no mu rmurs CHEST: normal shape and exp ansion LUNGS: clear to auscultatio n bilaterally ABDOMEN: soft, nontender, non distended, bowel sounds present, no organomegaly SKIN: anicteric EXTREMITIES: no clubbing, cyanosi s, or edema PSYCH: cognitive function i ntact ORAL CAVITY: mucosa moist
--- OUTSIDE RECORDS SUMMARY | 2024-03-14 16:45 | XMS_ITS | Patient Health Record ---
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 Name Role Phone Eddie Reed MD Primary Care Provider Omid Ramachandran Jr Unavailable ALLERGIES Allergen (clinical drug ingredient) Drug/Non Drug Allergy documented on EMR Reaction Allergy Type Onset Date Status Penicillin Unknown Drug Allergy Active RESULTS Component Value Reference Range Notes Pathology Reviewed date:05/24/2023 08:21:33 AM Interpretation: Performing Lab:[facility], [address] [place] [id number] Notes/Report: REASON FOR REFERRAL No Information MEDICATIONS [...] unspecified whether esophagitis present (K21.9) Active confirmed [id number] Problem Long-term current use of high risk medication other than anticoagulant (Z79.899) Active confirmed 563389574 Problem Long''s esophagus without dysplasia (K22.70) Active confirmed Long's esophagus (630347607) Problem Gastroesophageal reflux (K21.9) Active confirmed Esophageal reflux finding (561170275) VITAL SIGNS Temperature 98.6 degrees Fahrenheit 04/08/2023 Blood pressure diastolic 00 mm Hg 04/08/2023 Height 6 ft 1 in in 04/08/2023 Blood pressure systolic 00 mm Hg 04/08/2023 Weight 172 lbs 04/08/2023 BMI 22.69 kg/m2 04/08/2023 Encounters Encounter Location Date Provider Diagnosis [facility] [place] Out[place] [address] [place] [id number] 05/18/2023 Omid Harvey Jr Long''s esophagus without dysplasia K22.70 [facility] [address] [place] [address] 04/08/2023 Omid Harvey Jr Gastroesophageal reflux disease, unspecified whether esophagitis present K21.9 and Long-term current use of high risk medication other than anticoagulant Z79.899 [facility] [address] [place] [address] 05/24/2023 Omid Harvey Jr ASSESSMENTS Encounter Date [...] [place] [address] [place] [address] [id number] RANDALL GÓMEZ Self - patient is the insured [employer] [address] [place] [address] [id number] RANDALL GÓMEZ Self - patient is the insured MEDICAL (GENERAL) HISTORY Medical History History ICD Code Nephrolithiasis Borderline elevated cholesterol Colonoscopy 08/09, normal, te n-year followup, negative stool DNA test when she 23, patient declines followup colonoscopy Gastroesophageal reflux disease Surgical History Surgery Date(Month/Year) knee surgery left Cystoscopy, stent placement, and stone e xtraction
== END 2024-03-14 14:54 | disposition home or self-care (01) ==
LOC: HO.HGS 14:15
PROVIDERS: PCP Internal Medicine; Visit Provider Surgery
DX: K40.20 Bilateral inguinal hernia, without obstruction or gangrene, not specified as recurrent (principal)
CPT/HCPCS: 99024

== ENCOUNTER → 2024-03-14 14:15 | Outpatient (BNVA) | payer MEDICARE, SELFPAY | PROVIDERS: PCP Internal Medicine; Visit Provider Surgery | DX: Z48.815 Encounter for surgical aftercare following surgery on the digestive system (principal); Z98.890 Other specified postprocedural states | CPT/HCPCS: 99212 ==

== ENCOUNTER 2024-04-11 12:58 | Outpatient (AMB) | payer MEDICARE, SELFPAY ==
--- NOTE | 2024-04-11 13:00 | MHC.OFFVIS ---
Vital Signs 04/11/24 13:06 Height 6 ft 1 in Weight 172 lb 13.478 oz BMI 22.8 Pulse 68 Intake Visit Reasons: 1 month s/p bilateral inguinal hernias Intake Note: Patient is seen in office for one month follow up visit, post bilateral inguinal hernias. 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 He feels well and denies any ongoing inguinal symptoms. [facility] Medical History Bilateral inguinal hernia Nephrolithiasis Elevated cholesterol GERD (gastroesophageal reflux disease) Surgical History Hx of bilateral inguinal hernia repair (03/06/24) H/O cystoscopy Hx of left knee surgery H/O colonoscopy History of uvulectomy History of esophagogastroduodenoscopy (EGD) Social History Are you a primary day care attendant to a significant other at home: No Do you presently have visiting nurse or other home services: No Patient Tobacco Use Status: Never used Tobacco service: No Physical Exam Const General: no acute distress Nutritional Appearance: well nourished Orientation/consciousness: patient oriented x3 Limitations: no limitations Resp Effort & Inspection: normal respiratory effort GI Other: Soft, nondistended, nontender, bilateral well-healed inguinal incisions without redness or discharge. No hernia palpated with Valsalva maneuvers. Neuro General: patient oriented x3 Extrem Other: No edema Assessment & Plan Assessment & Plan (1) Bilateral inguinal hernia: Code(s): K40.20 - Bilateral inguinal hernia, without obstruction or gangrene, not specified as recurrent Category: Medical Qualifiers: Obstruction and gangrene presence: without obstruction or gangrene Recurrence: non-recurrent Qualified Code(s): K40.20 - Bilateral inguinal hernia, without obstruction or gangrene, not specified as recurrent Plan 68-year-old male patient status post bilateral inguinal hernia repairs performed 1 month ago. He tolerated the procedure well and his wounds have healed nicely. He may resume normal activity without restriction and should follow up as needed. Coding Level of Care Code Global (71465) Diagnoses Non-recurrent bilateral inguinal hernia without obstruction or gangrene K40.20 Obstruction and gangrene presence: without obstruction or gangrene Recurrence: non-recurrent
[2024-04-11 13:06] VITALS: PULSE 68; BMI 22.8
== END 2024-04-11 13:12 | disposition home or self-care (01) ==
PROVIDERS: PCP Internal Medicine; Visit Provider Surgery
DX: K40.20 Bilateral inguinal hernia, without obstruction or gangrene, not specified as recurrent (principal)
CPT/HCPCS: 99024

== ENCOUNTER → 2024-04-11 12:58 | Outpatient (BNVA) | payer MEDICARE, SELFPAY | PROVIDERS: PCP Internal Medicine; Visit Provider Surgery | DX: K40.20 Bilateral inguinal hernia, without obstruction or gangrene, not specified as recurrent (principal) | CPT/HCPCS: 99212 ==

== ENCOUNTER 2024-07-06 10:45 | Outpatient (REF) | payer MEDICARE, SELFPAY ==
[2024-07-06 12:58] LABS: Cholesterol 213 mg/dL (<200); HDL Cholesterol 59 mg/dL (>40); LDL Cholesterol Calculated 127 mg/dL (<100); Triglycerides 139 mg/dL (<150)
== END 2024-07-06 10:46 | disposition home or self-care (01) ==
LOC: HO.LAB 10:45
PROVIDERS: PCP Internal Medicine; Visit Provider Internal Medicine
DX: E78.5 Hyperlipidemia, unspecified (principal); K46.9 Unspecified abdominal hernia without obstruction or gangrene; N52.01 Erectile dysfunction due to arterial insufficiency
CPT/HCPCS: 36415; 80061; 96127; 99202

== ENCOUNTER 2024-07-06 10:45 | Outpatient (AMB) | payer MEDICARE, SELFPAY ==
[2024-07-06 10:21] VITALS: BP 118/70; PULSE 69; TEMP 36.6; O2SAT 98; BMI 22.3
--- NOTE | 2024-07-06 10:21 | A.OFFPC_ITS ---
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 Accompanied by: Self / Same As Patient Allergies Penicillins Allergy (Mild, Verified 07/06/24 10:22) HIVES Tobacco use date assessed: 07/06/24 Fall risk assessment: No Falls in past year Last assessed Fall Risk: 07/06/24 Dental Screening Dental Screen Date: 07/06/24 Did you have a dental visit in the last 12 months?: Yes Did you have a dental problem in the last 6 months where you did not have access to dental care?: No HPI HPI Comments History of Present Illness Details The patient is a 68 year old male with a past medical history of nephrolithiasis, BPH, GERD, hyperlipidemia, Factor V presenting for follow up. Saw PCP is Fidencio for preop for bilateral hernia repair s/p bilateral hernia repair-went smoothly. No post op complications Follows with urology Dr Swartz. Stable on tadalafil GERD-stable on omeprazole ROS CONSTITUTIONAL: Denies weight loss, fever and chills. HEENT: Denies changes in vision and hearing. RESPIRATORY: Denies SOB and cough. CV: Denies palpitations and CP GI: Denies abdominal pain, nausea, vomiting and diarrhea. : Denies dysuria and urinary frequency. MSK: Denies new myalgia and joint pain. SKIN: Denies rash and pruritus. NEUROLOGICAL: Denies headache PSYCHIATRIC: Denies recent changes in mood. PHYSICAL EXAM: GENERAL: Alert and oriented x 3. NAD EYES: EOMI. Anicteric. HENT: Moist mucous membranes. No scleral icterus. No cervical lymphadenopathy. LUNGS: Clear to auscultation bilaterally. CARDIOVASCULAR: Regular rate and rhythm. No murmur. No JVD. ABDOMEN: Soft, non-tender +bs EXTREMITIES: No edema. Non-tender. SKIN: No rashes or lesions. Warm. NEUROLOGIC: No focal neurological deficits. CN II-XII grossly intact PSYCHIATRIC: Cooperative. Appropriate mood and affect [facility] Medical History Bilateral inguinal hernia Nephrolithiasis Elevated cholesterol GERD (gastroesophageal reflux disease) Surgical History Hx of bilateral inguinal hernia repair (03/06/24) H/O cystoscopy Hx of left knee surgery H/O colonoscopy (~08/22/10) History of uvulectomy History of esophagogastroduodenoscopy (EGD) Family History Mother No problems noted. Father No problems noted. Social History Housing: House Are you a primary rn patient care to a significant other at home: No Do you presently have visiting nurse or other home services: No Patient Tobacco Use Status: Never used Tobacco e-Cigarette/Vaping Use: Never Used service: No Current occupational status: retired Cognitive needs: No Hearing needs: No Vision needs: Yes (reading glasses) Questionnaire PHQ-9 Over the last 2 weeks, how often have you been bothered by any of the following problems? 1. Little interest or pleasure in doing things: not at all 2. Feeling down, depressed, or hopeless: not at all 3. Trouble falling or staying asleep, or sleeping too much: not at all 4. Feeling tired or having little energy: not at all 5. Poor appetite or overeating: not at all 6. Feeling bad about yourself - or that you are a failure or have let yourself or your family down: not at all 7. Trouble concentrating on things, such as reading the newspaper or watching television: not at all 8. Moving or speaking so slowly that other people could have noticed. Or the opposite - being so fidgety or restless that you have been moving around a lot more than usual: not at all 9. Thoughts that you would be better off or of hurting yourself in some way: not at all Total score: 0 Depression Screening Interpretation: Negative Depression Screening Done: Yes [id number] - PHQ-9 Billing: Yes Source: Developed by Drs. Otis Soto, Linda Saavedra, Keaton Boudreaux and colleagues, with an educational octavio from 27 bards. Thrive Questionnaire Date Thrive assessed: 07/06/24 I am a: Patient Within the past 12 months, did the food you bought not last and you didn't have the money to get more?: Never true Within the past 12 months, did you worry whether your food would run out before you got money to buy more?: Never true Do you have trouble paying for medicines?: No Do you have trouble getting transportation to medical appointments?: No Do you have trouble paying your heating and electricity bill?: No Do you have trouble taking care of your child, family member or friend?: No Do you have trouble with day-to-day activities such as bathing, preparing meals, shopping, managing finances, etc.?: No Are you currently unemployed and looking for a job?: No Are you interested in more education?: No THRIVE Score: 0 AUDIT C Alcohol Use Questionnaire (AUDIT-C) 1. How often do you have a drink containing alcohol?: Monthly or less 2. How many drinks containing alcohol do you have on a typical day when you are drinking?: 1 or 2 3. How often do you have six or more drinks on one occasion?: Less than monthly Total Score: 2 DANIEL-7 AMB Questionnaire DANIEL-7 Date DANIEL - 7 assessed: 07/06/24 Feeling nervous, anxious, or on edge: 0 = Not at all Not being able to stop or control worryin = Not at all Worrying too much about different things: 0 = Not at all Trouble relaxin = Not at all Being so restless that it is hard to sit still: 0 = Not at all Becoming easily annoyed or irritable: 0 = Not at all Feeling afraid as if something awful might happen: 0 = Not at all Total DANIEL-7 score (0-4 normal; 5-9 mild; 10-14 moderate; 15-21 severe): 0 Source: Developed by Drs. Otis Soto, Linda Saavedra, Keaton Boudreaux and colleagues, with an educational octavio from 27 bards. Physical exam (Primary Care) Vital Signs: Last Vital Signs Temp 98 F 07/06/24 10:21 Pulse 69 07/06/24 10:21 BP 118/70 07/06/24 10:21 Pulse Ox 98 07/06/24 10:21 Oxygen Delivery Method Room Air 07/06/24 10:21 BMI result Body Mass Index 22.3 Tobacco/Smoking Status: Tobacco use Status Tobacco use date assessed 07/06/24 07/06/24 10:23 Patient Tobacco Use Status Never used Tobacco 07/06/24 10:23 e-Cigarette/Vaping Use Never Used 07/06/24 10:23 PHQ-9: PHQ-9 Score PHQ-9: Total score 0 07/09/24 17:30 Depression Screening Interpretation: Negative Thrive Assessment: Date of Thrive Assessment Date Thrive assessed 07/06/24 07/06/24 10:23 Coding Level of Care Code New Pt Level 4 (84260) Complex EM visit Add On G2211 Diagnoses Hyperlipidemia, unspecified hyperlipidemia type E78.5 Hyperlipidemia type: unspecified Hernia K46.9 Erectile dysfunction due to arterial insufficiency N52.01 Additional Codes PHQ-9 - 02205 - PHQ-9 Billing: Yes ([id number]) Assessment & Plan Assessment & Plan (1) Hyperlipidemia: Code(s): E78.5 - Hyperlipidemia, unspecified Category: Medical Qualifiers: Hyperlipidemia type: unspecified Qualified Code(s): E78.5 - Hyperlipidemia, unspecified (2) Hernia: Code(s): K46.9 - Unspecified abdominal hernia without obstruction or gangrene Category: Medical (3) Erectile dysfunction due to arterial insufficiency: Code(s): N52.01 - Erectile dysfunction due to arterial insufficiency Category: Medical Plan 68 yo to establish care Past medical, surgical, social reviewed GERD is stable Continues follow up with urology Orders: Orders Lipid Panel 07/06/24 E78.5 - Hyperlipidemia, unspecified Referrals Cologuard Test Z12.11 - Encounter for screening for malignant neoplasm of colon, Z12.12 - Encounter for screening for malignant neoplasm of rectum Medications: New omeprazole 20 mg PO DAILY 90 tabs 3RF
--- OUTSIDE RECORDS SUMMARY | 2024-07-06 12:12 | XMS_ITS ---
Author Organization [facility] Address [address] [place] [address] Care Team Providers Care Shower Enclosure Installer Name Role Phone Derek GUZMAN, Eddie Primary Care Provider Omid Ramachandran Jr REASON FOR VISIT gerd Problems Problem Type SNOMED Code ICD Code Onset Dates Problem Status W/U Status Risk Notes 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 Problem Esophageal reflux finding (374252457) Gastroesophageal reflux (K21.9) Active confirmed Encounters Encounter Location Date Provider Diagnosis [facility] Outpatient [address] [place] [address] [phone] 05/18/2023 Omid Harvey Jr Long''s esophagus without dysplasia K22.70 Assessments Encounter Date Diagnosis (ICD Code) Assessment Notes Treatment Notes Treatment Clinical Notes Section Notes 05/18/2023 Long''s esophagus without dysplasia (ICD-10 - K22.70) Plan Of Treatment No Information Progress Notes * RANDALL GÓMEZ GDOB:[birth year] (68 yo M)Acc No.[id number]:05/18/2023 EGD/MAC Patient:?RANDALL GÓMEZ Provider:?Omid Harvey MD :1955???Age:67 Y???Sex:Male Irwin e:05/18/2023 Address:[address] [place], [place] [id number] Pcp:Eddie Reed MD Subjective: * Chief Complaints: * ???1. Gerd. * Medical History:? Objective: * Vitals:? Assessment: * Assessment: 1.?Long''s esophagus with out dysplasia - K22.70 (Primary)??? Plan: * Treatment: * Procedure Codes:?54419 UPPER GI ENDOSCOPY, BIOPSY * * The named appointment provid er may or may not be the originator of this progress note, and it is not deemed complete until electronically signed by the appointment provider. Sign off status: Pending * Provider:?Omid Harvey MD Date:?0 05/18/2023 Generated for Carina naylor/Brook/Karliesmitting on:?07/06/2024 12:12 PM EDT
--- OUTSIDE RECORDS SUMMARY | 2024-07-06 12:12 | XMS_ITS ---
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 Name Role Phone Eddie Reed MD Primary Care Provider Omid Ramachandran Jr Unavailable Allergies Allergen (clinical drug ingredient) Drug/Non Drug Allergy documented on EMR Reaction Allergy Type Onset Date Status Penicillin Unknown Drug Allergy Active REASON FOR VISIT Patient presents today for consultation Medications Medication SIG (Take, Route, Fr equency, Duration) Notes Start Date End Date Status Omeprazole 20 MG TAKE 1 CAPSULE BY [facility] EVERY DAY 1 HOUR BEFORE MEALS Oral for 90 Ac tive Echinacea Active Fish Oil Active Vitamin E Active Vitamin D Active Social History Tobacco Use: Social History Observation Description Date Details (start date - stop date) Never Smoker NA - NA Tobacco Use/Smoking Question Answer Notes Patient is [...] Never (0 point) Points 4 Interpretation Positive Section Notes: glass of wine at night Problems Problem Type SNOMED Code ICD Code Onset Dates Problem Status W/U Status Risk Notes Problem 779063800 Gastroesophageal reflux disease, unspecified whether esophagitis present (K21.9) Active confirmed Problem 129381621 Long-term curren t use of high risk medication other than anticoagulant (Z79.899) Active confirmed Vital Signs Temperature 98.6 degrees Fahrenheit 02/08/20 24 Blood pressure systolic 00 mm Hg 04/08/19 24 Blood pressure diastolic 00 mm Hg 024 Height 6 ft 1 in in 04/08/2023 Weight 172 lbs 04/08/2023 BMI 22.69 kg/m2 04/08/2023 Encounters Encounter Location Date Provider Diagnosis [facility] [address] [place] [address] 04/08/2023 Omid Harvey Jr Gastroesophageal reflux disease, unspecified whether esophagitis present K21.9 and Long-term current use of high risk medication other than anticoagulant Z79.899 Assessments Encounter Date Diagnosis (ICD Code) Assessment Notes Treatment Notes Treatment Clinical Notes Section Notes 04/08/2023 Gastroesophageal reflux disease, unspecified whether esophagitis present (ICD-10 - K21.9) Endoscopy material was printed We discussed gastroesophageal reflux disease today. We discussed diet, lifestyle modifications, and weight management regarding the treatment of reflux. We discussed use of other medications besides proton pump inhibitors including H2 blockers an OTC antacids. We discussed the long-term side effect profile of omeprazole, and a lack of cause and relation to things like cognitive decline. We discussed that it is generally considered safe for long-term use. Because of his long-standing symptoms of gastroesophageal reflux disease, we recommended upper endoscopy to evaluate for any evidence of Long's esophagus. We discussed risks and benefits of the procedure today. He understands these and agrees to proceed. He is advised to stop aqvl-qdo-aklpxak supplements one week before the procedure 04/08/2023 Long-term current use of high risk medication other than anticoagulant (ICD-10 - Z79.899) We discussed gastroesophageal reflux disease today. We discussed diet, lifestyle modifications, and weight management regarding the treatment of reflux. We discussed use of other medications besides proton pump inhibitors including H2 blockers an OTC antacids. We discussed the long-term side effect profile of omeprazole, and a lack of cause and relation to things like cognitive decline. We discussed that it is generally considered safe for long-term use. Because of his long-standing symptoms of gastroesophageal reflux disease, we recommended upper endoscopy to evaluate for any evidence of Long's esophagus. We discussed risks and benefits of the procedure today. He understands these and agrees to proceed. He is advised to stop etee-wul-dqclttd supplements one week before the procedure Plan Of Treatment Treatment Notes Assessment Notes Gastroesophageal reflux dise ase, unspecified whether esophagitis present Endoscopy material was printed Future Test Test Name Order Date UPPER GI ENDOSCOPY 04/08/2023 Next Appt Details Follow Up: 1 Year, Reason: Progress Notes * ALLAN GÓMEZ GDOB:[birth year] (67 yo M)Acc No.[id number]:04/08/2023 Progress Notes Patient:?ALLAN GÓMEZ Provider:?Omid Harvey MD :1955???Age:67 Y???Sex:Male Irwin e:04/08/2023 Address:[address] [place] [address], [place] [id number] Pcp:Eddie Reed MD Subjective: * Chief Complaints: * ???1. Patient presents today for consultation. * HPI: ???New symptom(s):? Allan is a pleasant 67-year-old man seen today in consultation. He has long-standing history of gastroesophageal reflux disease with substernal burning precipitated by typical foods including spicy foods and fatty foods. He has been taking omeprazole for years. He believes an endoscopy about 20 years ago was negative. Omeprazole controls his symptoms well, however when he stopped taking it he does notice after about a week reflux symptoms recur. He also reports having had surgery on his uvula in the 80s because of a cough. He still has coughing when he goes out in cold weather. He also notes a sensation of clearing phlegm in cold weather. He has no dysphagia, hematemesis, or melena. Weight and appetite have been stable. He does continue to exercise. ?He is concerned about long-term effects of chronic omeprazole use including cognitive decline. He has not been diagnosed with this. * ROS:?General/Constitutional:?Change in appetite?denies.?Fatigue?denies.?ENT:?Patient denies?difficulty swallowing.?Respiratory:?Patient denies?shortness of breath.?Cardiovascular:?Patient denies?chest pain.?Gastrointestinal:?Comments?See HPI for details.?Genitourinary:?Difficulty urinating?denies.?Incontinence?denies.?Musculoskeletal:?Patient denies?muscle aches.?Skin:?Patient denies?pruritis.?Neurologic:?Patient denies?low back pain.?Psychiatric:?Patient denies?mental or physical abuse.? * Medical History:?Nephrolithi asis, Borderline elevated cholesterol, Colonoscopy 08/09, normal, ten-year followup, negative stool DNA test when she 23, patient declines followup colonoscopy, Gastroesophageal reflux disease. * Surgical History:?knee surge ry left , Cystoscopy, stent placement, and stone extraction . * Family History:?Father: dece ased 90 yrs, stent , diagnosed with Heart disease.?Mother: 73 yrs, aneurysm.? brother with crohns , no known colon ca. * Social History:?Tobacco Use:?Tobacco Use/Smoking?Patient is a?nonsmoker.?Drugs/Alcohol:?Alcohol Screen?Did you have a drink containing alcohol in the past year??Yes,?How often did you have a drink containing alcohol in the past year??4 or more times a week (4 points),?How many drinks did you have on a typical day when you were drinking in the past year??1 or 2 drinks (0 point),?How often did you have 6 or more drinks on one occasion in the past year??Never (0 point),?Points?4,?Interpretation?Positive.?Miscellaneous:?Marital status: . Occupation: retired. ???glass of wine at night. * Medications:?Taking Vitamin E , Taking Vitamin D , Taking Echinacea , Taking Fish Oil , Taking Omeprazole 20 MG Capsule Delayed Release TAKE 1 CAPSULE BY MOUTH EVERY DAY 1 HOUR BEFORE MEALS Oral , Medication List reviewed and reconciled with the patient * Allergies:?Penicillin. Objective: * Vitals:?Wt: 172 lbs, Ht: 6 f t 1 in, BMI:22.69 Index, BP: 00/00 mm Hg, Temp: 98.6. * Examination: ???General Examination: ?GENERAL APPEARANCE:?in no acute distress.?HEAD:?normocephalic.?EYES:?sclera non-icteric.?ORAL CAVITY:?mucosa moist.?NECK/THYROID:?no lymphadenopathy.?SKIN:?anicteric.?HEART:?S1, S2 normal, no murmurs.?LUNGS:?clear to auscultation bilaterally.?CHEST:?normal shape and expansion.?ABDOMEN:?soft, nontender, nondistended, bowel sounds present, no organomegaly .?EXTREMITIES:?no clubbing, cyanosis, or edema.?PSYCH:?cognitive function intact.? Assessment: * Assessment: 1.?Gastroesophageal reflux d isease, unspecified whether esophagitis present - K21.9 (Primary)?2.?Long-term current use of high risk medication other than anticoagulant - Z79.899? We discussed gastroesophagea l reflux disease today. We discussed diet, lifestyle modifications, and weight management regarding the treatment of reflux. We discussed use of other medications besides proton pump inhibitors including H2 blockers an OTC antacids. We discussed the long-term side effect profile of omeprazole, and a lack of cause and relation to things like cognitive decline. We discussed that it is generally considered safe for long-term use. Because of his long-standing symptoms of gastroesophageal reflux disease, we recommended upper endoscopy to evaluate for any evidence of Long's esophagus. We discussed risks and benefits of the procedure today. He understands these and agrees to proceed. He is advised to stop ngig-gve-itywixz supplements one week before the procedure. Plan: * Treatment: Notes: Endoscopy material was printed.?? * Procedure Codes:?3017F COLOR ECTAL CA SCREEN DOC REV, G9903 Pt scrn tbco id as non user, G9745 DOC RSN FOR NOT SCREEN/REC F/U HBP * Follow Up:?1 Year * * Sign off status: Completed true * Provider:?Omid Harvey MD Date:?0 04/08/2023 Generated for Rossyi dayday/Brook/eTransmitting on:?07/06/2024 12:12 PM EDT History and Physical Notes * HPI (History of Present Illness) Category Sub-Category Detail Notes Category Not es New symptom(s) Allan is a pleasant 67-year-old man seen today in consultation. He has long-standing history of gastroesophageal reflux disease with substernal burning precipitated by typical foods including spicy foods and fatty foods. He has been taking omeprazole for years. He believes an endoscopy about 20 years ago was negative. Omeprazole controls his symptoms well, however when he stopped taking it he does notice after about a week reflux symptoms recur. He also reports having had surgery on his uvula in the 80s because of a cough. He still has coughing when he goes out in cold weather. He also notes a sensation of clearing phlegm in cold weather. He has no dysphagia, hematemesis, or melena. Weight and appetite have been stable. He does continue to exercise. He is concerned about long-term effects of chronic omeprazole use including cognitive decline. He has not been diagnosed with this. Examination Category Sub-Category Detail Notes Category Not es General Examination GENERAL APPEARANCE: in no acute di stress HEAD: normocephalic EYES: sclera non-icteric NECK/THYROID: no lymphadenopathy HEART: S1, S2 normal, no mu rmurs CHEST: normal shape and exp ansion LUNGS: clear to auscultatio n bilaterally ABDOMEN: soft, nontender, non distended, bowel sounds present, no organomegaly SKIN: anicteric EXTREMITIES: no clubbing, cyanosi s, or edema PSYCH: cognitive function i ntact ORAL CAVITY: mucosa moist
--- OUTSIDE RECORDS SUMMARY | 2024-07-06 12:13 | XMS_ITS | Patient Health Record ---
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 Name Role Phone Eddie Reed MD Primary Care Provider Omid Ramachandran Jr Unavailable [phone] Allergies Allergen (clinical drug ingredient) Drug/Non Drug Allergy documented on EMR Reaction Allergy Type Onset Date Status Penicillin Unknown Drug Allergy Active Reason For Referral No Information Medications Medication SIG (Take, Route, Fr equency, Duration) Notes Start Date End Date Status Omeprazole 20 MG TAKE 1 CAPSULE BY [facility] EVERY DAY 1 HOUR BEFORE MEALS [...] Problem Status W/U Status Risk Notes Problem Esophageal reflux finding (530626628) Gastroesophageal reflux (K21.9) Active confirmed Problem 461488125 Long-term curren t use of high risk medication other than anticoagulant (Z79.899) Active confirmed 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 Problem 687484915 Gastroesophageal reflux disease, unspecified whether esophagitis present (K21.9) Active confirmed Plan Of Treatment Future Test Test Name Order Date UPPER GI ENDOSCOPY 04/08/2023 Insurance Providers Payer Name Payer Address Payer Phone Subscriber Number Group Number Insured Name Patient Relationship to Insured Coverage Start Date Coverage End Date MEDICARE OF [place] [address] [place] [id number] RANDALL GÓMEZ Self - patient is the insured [employer] ATT[employer] CLAIMS [address] [place] [address] [id number] RANDALL GÓMEZ Self - patient is the insured Medical (General) History Medical History History ICD Code Nephrolithiasis Borderline elevated cholesterol Colonoscopy 08/09, normal, te n-year followup, negative stool DNA test when she 23, patient declines followup colonoscopy Gastroesophageal reflux disease Surgical History Surgery Date(Month/Year) knee surgery left Cystoscopy, stent placement, and stone e xtraction
--- OUTSIDE RECORDS SUMMARY | 2024-07-06 12:13 | XMS_ITS ---
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 Generated for Carina naylor/Brook/eTransmitting on:?07/06/2024 12:12 PM EDT
== END 2024-07-06 12:00 | disposition home or self-care (01) ==
LOC: HO.HMCHD 10:45
PROVIDERS: PCP Internal Medicine; Visit Provider Internal Medicine
DX: E78.5 Hyperlipidemia, unspecified (principal); K46.9 Unspecified abdominal hernia without obstruction or gangrene; N52.01 Erectile dysfunction due to arterial insufficiency

== ENCOUNTER 2024-09-22 15:14 | Outpatient (REF) | payer MEDICARE, SELFPAY ==
--- NOTE | ~2024-09-22 | US_ITS ---
EXAMINATION: US KIDNEY BILATERAL HISTORY: N20.0 - Calculus of kidney TECHNIQUE: Real-time grayscale ultrasound imaging of the kidneys was performed and images were reviewed. COMPARISON: Comparison is made with the prior examination dated 09/07/2023. FINDINGS: Right kidney: The right kidney measures 11.4 x 4.7 x 6.4 cm. Renal parenchymal echotexture and thickness are normal. There is a 1.7 x 1.6 x 1.6 cm septated cyst at the lower pole. There is no hydronephrosis or renal calculi. Left Kidney: The left kidney measures 11.2 x 5.3 x 5.9 cm. Renal parenchymal echotexture and thickness are normal. There are cortical cysts at the lower pole measuring 1.7 x 1.7 x 1.6 cm and 2.4 x 1.5 x 1.9 cm. Multiple parapelvic cysts are noted measuring up to 1.6 x 2.7 x 2.4 cm. There is a 3 x 4 x 9 mm nonobstructing calculus in the interpolar region and an 8 x 5 x 11 mm nonobstructing calculus at the lower pole. There is no hydronephrosis. US/US renal BI IMPRESSION: 1. Bilateral renal cysts. 2. Left nephrolithiasis as described. Electronically signed by: Otis Mccoy MD 09/22/2024 03:50 PM EDT
--- OUTSIDE RECORDS SUMMARY | 2024-09-22 15:16 | XMS_ITS | Clinical Summary ---
Author Organization [facility] Address [address] [place] [address] Phone Care Team Providers Care Director Of Early Childhood Education Name Role Phone Eddie Reed MD Primary Care Provider Allergies Active Allergy Reactions Criticality Noted Date Comments Penicillins 12/03/2019 Medications omeprazole (PRILOSEC) 10 MG capsule Take 10 mg by mouth daily. Active Social History Tobacco Use Types Packs/Day Years Used Date Smoking Tobacco: Never Smokeless Tobacco: Never Education Answer Date Recorded Are you interested in more education? Not on jareth e 06/26/2022 Are you concerned about learning? Not on file 06/26/2022 No 06/26/2022 No 06/26/2022 Digital Access Answer Date Recorded No 07/25/2022 No 07/25/2022 No 07/25/2022 Reliable internet access at home? Not on file 07/25/2022 Device with a working camera? Not on file Sex and Gender Information Value Date Recorded Sex Assigned at Not on file Legal Sex Male 9:01 AM EDT Gender Identity Not on file Sexual Orientation Not on file Last Filed Vital Signs Vital Sign Reading Time Taken Comments Blood Pressure 130/80 01/01/2020 11:32 AM EST Pulse 102 01/01/2020 11:32 AM EST Temperature 36.7 C (98 F) 01/01/2020 10:22 AM EST Respiratory Rate 18 01/01/2020 11:32 AM EST Oxygen Saturation 98% 01/01/2020 11:32 AM EST Inhaled Oxygen Concentration - - Weight 80.1 kg (176 lb 9.6 oz) 12/03/2019 9:14 A M EDT Height 185.4 cm (6' 1 ) 12/03/2019 9:14 AM EDT Body Mass Index 23.3 12/03/2019 9:14 AM EDT Plan of Treatment Health Maintenance Due Date Last Done Comments Adult Td,Tdap Booster 1955 LIPID PANEL 1955 DEPRESSION SCREENING 1969 HEPATITIS C SCREENING 07/18/1975 SMOKING STATUS SCREENING (On ce After 26 Yrs) 07/18/1983 COLOGUARD 2002 COLONOSCOPY 2002 COLORECTAL CANCER SCREENING 2002 FIT TEST 2002 FOBT 2002 SIGMOIDOSCOPY 2002 VIRTUAL COLONOSCOPY 2002 PNEUMOCOCCAL VACCINES (50+ y ears) (1 of 1 - PCV) 07/18/2007 ZOSTER VACCINES (1 of 2) 07/18/2007 COVID-19 VACCINE (2 - 2023-2 5 season) 2023 05/13/2020 RSV VACCINE (1 - 1-dose 75+ series) 2032 HEPATITIS A VACCINES Aged Out No long er eligible based on patient's age to complete this topic HIB VACCINES Aged Out No longer eligi ble based on patient's age to complete this topic MENINGOCOCCAL VACCINES (ACWY) Aged Out No longer eligible based on patient's age to complete this topic MENINGOCOCCAL VACCINES (B) Aged Out N o longer eligible based on patient's age to complete this topic Medical Devices Not on file Insurance HMO [facility] [place] [place], [place] [address] [place] [address] [address] [facility] H[facility] Care Teams Director Of Early Childhood Education Relationship Specialty Start Date End Date Eddie Reed MD [address] [place] [address] [place] [address] PCP - General Internal Medicine 12/03/19 Additional Source Comments The information contained in this document represents components of the legal health record. It is not the complete legal health record.[facility]
--- OUTSIDE RECORDS SUMMARY | 2024-09-22 15:16 | XMS_ITS | Patient Health Record ---
[facility] Address [address] [facility] [place] [address] Care Team Providers Care Cns Name Role Phone Eddie Reed MD Primary Care Provider Jaylan Wolf Unavailable [phone] Allergies Allergen (clinical drug ingredient) Drug/Non Drug Allergy documented on EMR Reaction Allergy Type Onset Date Status Penicillin unknown Drug Allergy Active Reason For Referral No Information Medications Medication SIG (Take, Route, Fr equency, Duration) Notes Start Date End Date Status Omeprazole 20 MG 1 capsule Orally Onc e a day; Duration: 30 day(s) Active Social History Tobacco Use: Social History Observation Description Date Details (start date - stop date) Never Smoker NA - NA Tobacco Use/Smoking Question Answer Notes Are you a: nonsmoker Additional Findings: Tobacco Non-User Current no n-smoker Tobacco use other than smoking: Question Answer Notes Are you an other tobacco user? No Plan Of Treatment Pending Test Test Name Order Date X ray : Foot, right 3V 12/23/2016 Insurance Providers Payer Name Payer Address Payer Phone Subscriber Number Group Number Insured Name Patient Relationship to Insured Coverage Start Date Coverage End Date Cigna [address] [facility] [place] [address] [id number] Allan Valerio Self - patient is the insured 7 Medical (General) History Medical History History ICD Code mumps measles chicken pox Reflux ( GERD) Stomach ulcer Surgical History Surgery Date(Month/Year) shoulder surgery 2009 knee surgery, left 1977
== END 2024-09-22 15:15 | disposition home or self-care (01) ==
LOC: HO.HMGCX 15:14
PROVIDERS: PCP Internal Medicine; Visit Provider Urology
DX: N20.0 Calculus of kidney (principal)
CPT/HCPCS: 76775

== ENCOUNTER → 2024-09-22 15:16 | Outpatient (BNV) | payer MEDICARE, SELFPAY | PROVIDERS: PCP Internal Medicine; Visit Provider Radiology Diagnostic Radiology | DX: N28.1 Cyst of kidney, acquired (principal) | CPT/HCPCS: 76775 ==

== ENCOUNTER 2024-10-04 15:03 | Outpatient (AMB) | payer MEDICARE, SELFPAY ==
--- OUTSIDE RECORDS SUMMARY | 2023-05-18 07:10 | XMS_ITS ---
Author Organization [facility] Address [address] [place] [address] Care Team Providers Care Firer Powerhouse Name Role Phone Derek (RETIRED) Eddie GUZMAN Primary Care Provide r Omid Wallace Jr REASON FOR VISIT gerd Problems Problem Type SNOMED Code ICD Code Onset Dates Problem Status W/U Status Risk Notes Problem Long's esophagus (112140647) Long''s esophagus without dysplasia (K22.70) Active confirmed Problem Esophageal reflux finding (249503219) Gastroesophageal reflux (K21.9) Active confirmed Encounters Encounter Location Date Provider Diagnosis [facility] [place] Outpatient [address] [place] [phone] 05/18/2023 Omid Harvey Jr Long''s esophagus without dysplasia K22.70 Assessments Encounter Date Diagnosis (ICD Code) Assessment Notes Treatment Notes Treatment Clinical Notes Section Notes 05/18/2023 Long''s esophagus without dysplasia (ICD-10 - K22.70) Plan Of Treatment No Information Progress Notes * RANDALL GÓMEZ GDOB:[birth year] (69 yo M)Acc No.[id number]:05/18/2023 EGD/MAC Patient: RANDALL AYALA Provider: Ta Harvey MD :1955 A ge:67 Y S ex:Male Date:05/18/2023 Address:[address] [place], [place] [id number] Pcp:Eddie Reed (RETIRED )MD Subjective: * Chief Complaints: * 1 . Gerd. * Medical History: Objective: * Vitals: Assessment: * Assessment: 1. B arrett''s esophagus without dysplasia - K22.70 (Primary) Plan: * Treatment: * Procedure Codes: 4 3239 UPPER GI ENDOSCOPY, BIOPSY * * The named appointment provid er may or may not be the originator of this progress note, and it is not deemed complete until electronically signed by the appointment provider. Sign off status: Pending * Provider: Ta Harvey MD Date: 0 05/18/2023 Generated for Carina naylor/Brook/Malikitting on: 0 10/04/2024 03:34 PM EDT
--- NOTE | 2024-10-04 15:07 | A.OFFVIS_ITS ---
Intake Visit Reasons: 1y/US Intake Note: Patient presents for 1 YR follow up Imagin09/22/24 Urology Medication:Tadalafil ,VIT-C Antibiotic Allergies: Penicillins Blood Thinners: None Tin Worker Required: No Accompanied by: Self / Same As Patient Allergies Penicillins Allergy (Mild, Verified 10/04/24 15:08) HIVES CLAUDINE Comments Details: Allan is a pleasant male. He is a patient Dr. Reed. He is seen for the following urologic conditions - nephrolithiasis - erectile dysfunction - lower urinary tract symptoms Stones on left side have progressed Recommend KUB six-month possible ESWL Since last year has had bilateral hernia repair Erectile dysfunction Prior responsiveness to daily tadalafil Also helped with nocturia Daily tadalafil 5 mg PSA 0.7 Nephrolithiasis 09/19 hospital admission via ER for ureteroscopy Imaging - 09/19 right distal ureteric stone with 3 mm stones bilateral - 12/21 renal ultrasound, bilateral renal cyst up to 2 cm, question of 6 mm stone left lower pole - 08/22 renal ultrasound. Bilateral renal cyst. 2 x 3 mm stone left side stable. - 09/22 renal ultrasound. Bilateral renal cysts, reported 6 mm stones left lower pole Intervention - 09/19 ureteroscopy Stone composition - 09/19 mixed calcium oxalate 24 hour urine - 10/20 Low volume, Ca 98, Citrate 540, Ox 45, 10/21 borderline low volume, citrate low, other labs normal Therapeutic plan - 2 L fluids - lemon [facility] History Bilateral inguinal hernia Nephrolithiasis Elevated cholesterol GERD (gastroesophageal reflux disease) Surgical History Hx of bilateral inguinal hernia repair (03/06/24) H/O cystoscopy Hx of left knee surgery H/O colonoscopy (~08/22/10) History of uvulectomy History of esophagogastroduodenoscopy (EGD) Family History Mother No problems noted. Father No problems noted. Social History Housing: House Are you a primary acute care surgeon to a significant other at home: No Do you presently have visiting nurse or other home services: No Patient Tobacco Use Status: Never used Tobacco e-Cigarette/Vaping Use: Never Used service: No Current occupational status: retired Cognitive needs: No Hearing needs: No Vision needs: Yes (reading glasses) Review of Systems Const Denies chills and Denies fever(s) Card Reports no additional complaints and Denies syncope Resp Denies cough GI Denies abdominal pain and Denies heartburn Reports as per HPI and Denies change in libido Neuro Denies syncope Psych Denies change in libido Endo Denies change in libido Physical Exam Const General: cooperative, healthy appearing, comfortable and no acute distress Orientation/consciousness: patient oriented x3 HEENT Face and sinus: Yes normal facial exam Mouth: moist mucous membranes Neck Neck: Yes normal visual inspection, Yes full ROM and Yes trachea midline Chest Chest palpation & inspection: normal inspection of the chest Resp Effort & Inspection: normal respiratory effort, able to speak in complete sen tences and no respiratory distress GI Inspection: Yes normal to inspection Back/Spine/Pelvis Cervical Spine: normal cervical lordosis Thoracic/Lumbar Spine: thoracic and lumbar spine normal to inspection Skin General skin exam: no rashes or lesions noted Neuro General: patient oriented x3, gait normal, tone normal and moves all extremities Extrem General: Yes normal to inspection and Yes capillary refill normal Assessment & Plan Assessment & Plan (1) Bladder outlet obstruction: Code(s): N32.0 - Bladder-neck obstruction Category: Medical Plan Six-month follow-up KUB Orders: Orders XR KUB 6 Months N20.0 - Calculus of kidney Medications: Changed From tadalafil 5 mg PO DAILY N32.0 - Bladder-neck obstruction To tadalafil [id number] [facility] Group[facility]DR[facility] Member [id number] 5 mg PO DAILY 90 tabs 1RF Bladder outlet obstruction 90 days N32.0 - Bladder-neck obstruction Patient Instructions: This note is constructed using voice recognition software. While every effort has been made to ensure accuracy environmental studies faculty member errors may have been included. Imaging studies, laboratory and physical exam results were discussed and reviewed in detail. No major barriers to patient understanding were identified. An opportunity to ask questions regarding the treatment plan was provided. All questions were answered. The patient expressed understanding and agreement with the above treatment plan. The patient is aware they should contact our office by phone for worsening of their current condition or the appearance of new urologic symptoms. Compliance is encouraged with any medications and followup testing that is ordered. It is a privilege to participate in the urologic care of your patient. If you have any questions or concerns regarding treatment for the above conditions, or other urologic issues, please do not hesitate to contact me. The office telephone contact is [phone]. Sincerely, Dr Tommy Swartz MD, [facility] - Urology Compassionate Specialist Care for the Genitourinary System Coding Level of Care Code Est Pt Level 4 (69994) Diagnoses Bladder outlet obstruction N32.0
--- OUTSIDE RECORDS SUMMARY | 2024-10-04 15:34 | XMS_ITS | Patient Health Record ---
[facility] Address [address] [place] [address] Care Team Providers Care Roto Gravure Press Operator Name Role Phone Eddie Reed MD Primary Care Provider Jaylan Wolf Unavailable [phone] Allergies Allergen (clinical drug ingredient) Drug/Non Drug [...] Date Coverage End Date [employer] [address] [place] [address] [phone] [id number] Allan Valerio Self - patient is the insured 7 Medical (General) History Medical History History ICD Code mumps measles chicken pox Reflux ( GERD) Stomach ulcer Surgical History Surgery Date(Month/Year) shoulder surgery 2009 knee surgery, left 1977
--- OUTSIDE RECORDS SUMMARY | 2024-10-04 15:35 | XMS_ITS | Clinical Summary ---
Author Organization [facility] Address [address] [place] [address] Phone Care Team Providers Care Aquatics Manager Name Role Phone Eddie Reed MD Primary [...] Medical Devices Not on file Insurance HMO [facility] [address] [place], [place] [id number] [place] [id number] [id number] [facility] HMO Care Teams Aquatics Manager Relationship Specialty Start Date End Date Eddie Reed MD [address] [place] [address] [place] [id number] PCP - General Internal Medicine 12/03/19 Additional Source Comments The information contained in this document represents components of the legal health record. It is not the complete legal health record.[facility]
== END 2024-10-04 15:31 | disposition home or self-care (01) ==
LOC: HO.HUSH 15:04
PROVIDERS: PCP Internal Medicine; Visit Provider Urology
DX: R35.1 Nocturia (principal); N32.0 Bladder-neck obstruction
CPT/HCPCS: 99214

== ENCOUNTER → 2024-10-04 15:03 | Outpatient (BNVA) | payer MEDICARE, SELFPAY | PROVIDERS: PCP Internal Medicine; Visit Provider Urology | DX: N32.0 Bladder-neck obstruction (principal) | CPT/HCPCS: 81003; 99212 ==